=== PATIENT | female | born 1940 | race Caucasian/White ===

== ENCOUNTER 2017-10-02 18:00 | Emergency (ER) | payer OTHER ==
[~2017-10-02] VITALS: Ht 166.4 cm; Wt 98.9 kg
[~2017-10-02 18:00] MED LIST: AMOXICILLIN500 M2 PO; ATORVASTATIN CA40 M1 PO; AUGMENTIN 875875 MG PO; BIOTIN1000 MCG PO; COUMADIN 3 MG TA3 MG PO; COUMADIN2.5 M1 PO; DILTIAZEM ER120 MG PO; DILTIAZEM240 M1 PO; FERROUS SULFAT325 M2 PO; FUROSEMIDE20 M1 PO; HYDROCORTISO28.35 GM TOP; LANOXIN125 MCG PO; LASIX20 MG PO; LASIX40 M1 PO; LASIX40 MG PO; LEVOTHYROXINE0.15 MG PO; LOPRESSOR50 MG PO; LORATADINE10 M1 PO; Lipitor PO; METOPROLOL TART25 M1 PO; METOPROLOL TART50 M1 PO; PERCOCET 325 MG1 TA2 PO; RITE AID BIO2500 MCG PO; SYNTHROID125 MCG PO; TOPROL XL 50MG50 MG PO; TYLENOL #31 TAB PO; XARELTO20 M2 PO
[2017-10-02 18:48] LABS: ABSOLUTE BASOPHIL COUNT 0 /CUMM (0.0-0.2); ABSOLUTE EOSINOPHIL COUNT 0 /CUMM (0.0-0.7); ABSOLUTE GRANULOCYTE CT 8.3 /CUMM (1.4-6.5); ABSOLUTE MONOCYTE COUNT 0.9 /CUMM (0.10-0.60); BASOPHIL % 0.5 % (0.0-2.0); EOSINOPHIL % 0.3 % (0-5); GRANULOCYTE % 80.7 % (42.2-75.2); HEMATOCRIT 45.6 % (37-47); MEAN CORPUSCULAR HGB 29.1 PG (27.0-31.0); MEAN CORPUSCULAR VOLUME 88.1 FL (81.0-99.0); MEAN PLATELET VOLUME 10.8 FL (7.4-10.4); PLATELET COUNT 99 /CUMM (130-400); RBC DISTRIBUTION WIDTH 17.1 % (11.5-14.5); RED BLOOD CELL CT 5.18 /CUMM (4.20-5.40); WHITE BLOOD CELL COUNT 10.3 /CUMM (4.8-10.8)
--- NOTE | 2017-10-02 19:13 | RADIOLOGY REPORT ---
EXAMINATION: XR CHEST CLINICAL INFORMATION: Fever. COMPARISON: Chest x-ray 03/10/2017 TECHNIQUE: 2 views of the chest were obtained. FINDINGS: The heart size is enlarged. There is vascular wall calcifications of aorta. There is no pulmonary vascular congestion. The lungs are clear. There is no pleural effusion. There is multilevel degenerative spondylosis of the dorsal spine. IMPRESSION: There is no acute abnormality of the chest.
--- NOTE | 2017-10-02 22:09 | ED NECK/BACK PAIN COMPLAINT ---
See Addendum History of Present Illness General Chief Complaint: General Adult Stated Complaint: FEVER, RIGHT SIDE OF NECK STIFFNESS/SPASM Source: patient, family, old records Exam Limitations: no limitations Vital Signs & Intake/Output Vital Signs & Intake/Output Vital Signs Date Time Temp Pulse Resp B/P B/P Pulse O2 O2 Flow FiO2 Mean Ox Delivery Rate 10/02 2319 99.0 104 18 124/72 97 Room Air Room Air 10/02 2222 98.4 10/02 2101 98.8 111 18 102/71 95 Room Air 10/02 1826 101.0 10/02 1823 101.0 118 20 159/86 93 Room Air ED Intake and Output 10/03 0000 10/02 1200 Intake Total Output Total Balance Patient 218 lb Weight Weight Reported by Patient Measurement Method Reconcile Medications Atorvastatin Calcium 40 MG TABLET 1 TAB PO DAILY Cholesterol . Biotin ([facility] Biotin) 2,500 MCG CAP 10,000 MCG PO DAILY SUPPLEMENT ( Reported) Cyclobenzaprine HCl 10 MG TABLET 1 TAB PO BID PRN NECK PAIN Ferrous Sulfate 325 MG (65 MG IRON) TABLET.DR 325 MG PO DAILY Iron Deficiency . Furosemide (Lasix) 40 MG TABLET 1 TAB PO DAILY diuresis . Hydrocortisone 0.5 % CREAM..G. 1 [place] TOP DAILY FACE . Levothyroxine Sodium (Synthroid) 125 MCG TABLET 0.125 MG PO DAILY AC thyroid . Metoprolol Tartrate 25 MG TABLET 3 TAB PO BID Heart Rate . Moxifloxacin HCl (Avelox) 400 MG TABLET 1 TAB PO DAILY fever Tylenol With Codeine (Tylenol With Codeine #3 Tablet) 300 MG-30 MG TABLET 1-2 TAB PO Q6 PRN pain Warfarin Sodium (Coumadin) 1 MG TABLET BLOOD THINNER (Reported) Triage Note: PT STATES SHE HAD HAD SHINGLES IN R RIGHT SIDE NECK/HEAD AND SHE WAS TREATED FOR SUCH. PT STATE HER NECK IS SPASAMING ON THAT SIDE. PT STATES TODAY SHE BEGAN TO GET A FEVER 101.2. PT CALLED HER PCP AND HE TOLD HER TO COME TO ED. PT STATES SHE HAD CELLULITIS ON HER LEG AND HER DRRenato WAS CONCERNED THAT MAYBE THE NECK RASH MIGHT BE TURNING INTO CELLULITIS. Triage Nurses Notes Reviewed? yes Onset: Abrupt Duration: day(s): (1), constant Timing: recent history Quality/Severity: moderate Location: paraspinous muscles (neck) Radiation: none Associated Symptoms: fever HPI: 77 Year old female with past medical history significant for lower extremity swelling, hypothyroidism hypertension atrial fibrillation on Coumadin, history of necrotizing fasciitis, septic shock, cellulitis presents the ER stating that since July she has had pain to the right side of her neck of shingles. She describes the pain as a tense spasm-like pain that is constantly there. She states today she developed a fever. She denies any associated cough nausea vomiting diarrhea. No chest breath. No abdominal pain. She denies noting any rashes to her skin or neck. No headache. No urinary urgency frequency dysuria. No sick contacts no recent change her appetite There is no radiation of the pain in her neck no numbness or tingling in her extremities no swelling to her arms. (Alfredo Lopez) Allergies Coded Allergies: Penicillins (RASH 10/02/17) Uncoded Allergies: CONTRAST DYE (UNKNOWN 10/02/17) (Sanya Arevalo DO) Past History Travel History Traveled to [place] past 21 day No Medical History Any Pertinent Medical History? see below for history Neurological: NONE EENT: MACULAR DEGENERATION BLIN LEGALLY BLIND Cardiovascular: AFIB, hypertension Respiratory: N/A Gastrointestinal: N/A Hepatic: N/A Renal: N/A Musculoskeletal: NECROTIZING FASCIITIS left lower ext lymphedema Psychiatric: N/A Endocrine: hypothyroidism, obesity Blood Disorders: N/A Cancer(s): N/A FUR JOINER/Reproductive: N/A History of MRSA: Yes History of VRE: No History of CDIFF: No Surgical History Surgical History: debridement left thigh s/p venous closure LLE Psychosocial History Who do you live with Spouse Services at Home None What is your primary language Yi Tobacco Use: Quit >30 days ago ETOH Use: denies use Illicit Drug Use: denies illicit drug use Family History Hx Contributory? No (Alfredo Lopez) Review of Systems Review of Systems Constitutional: Reports: see HPI. Comments Review of systems: See HPI, All other systems negative. Constitutional, fever HEENT: no sore throat no congestion Cardiovascular: No chest pain , no palpitation Skin: no rashes, no change in skin Respiratory: No dyspnea no cough no sputum GI: No nausea no vomiting, no diarrhea : No dysuria No hematuria, no frequency Muscle skeletal: No joint pain, no back pain, neck pain Neurologic: , no headache Psych: No stress Heme/endocrine: No bruising Immunology: No lymphadenopathy (Alfredo Lopez) Physical Exam Physical Exam General Appearance: well developed/nourished, alert, awake Neck: supple Comments: Well-developed well-nourished person in no acute distress HEENT: Normal EENT exam; PERRL, EOMI, HEAD is atraumatic. moist mucous membranes. Neck: Supple, no lymphadenopathy, normal range of motion without pain or tenderness, negative Brudzinski's Back: Nontender, no CVA tenderness. Full range of motion no rash noted to the skin Cardiovascular: Regular rate and rhythms no murmurs rubs Respiratory: No respiratory distress. Patient speaking in full complete sentences. Breath sounds clear to auscultation bilaterally: NO W/R/R Abdomen: Soft, obese nontender nondistended, no appreciable organomegaly. Normal bowel sounds. No rebound/guarding, Extremity: 3+ b/l edema (pt states at baseline), full range of motion of extremities, normal and equal pulses bilaterally, 5 out of 5 strength noted to bilateral upper and lower extremities Neuro: Alert oriented x3, motor sensory normal, There were no obvious focal neurologic abnormalities. Skin: No appreciable rash on exposed skin, skin is warm and dry. Psych: Mood and affect is normal, memory and judgment is normal. Core Measures CVA/TIA Diagnosis: No (Alfredo Lopez) Progress Differential Diagnosis: pyelo/UTI, PNA, BRONCHITIS, INFLUENZA, UTI PYELO, GASTROENTERITIS, SHINGLES CELLULITIS, NEC FASC Plan of Care: Orders Procedure Date/time Status EKG 10/02 2229 Active RAPID VIRAL INFLUENZA A 10/02 1828 Complete URINALYSIS 10/02 1828 Complete BLOOD CULTURE 10/02 1825 Active TROPONIN LEVEL 10/02 182 Complete LACTIC ACID 10/02 1825 Complete COMPREHENSIVE METABOLIC PANEL 10/02 1825 Complete CBC WITHOUT DIFFERENTIAL 10/02 1825 Complete Laboratory Tests 10/02/172125: Lactic Acid Cancelled, Urinalysis LIGHT H, Urine Color YEL, Urine Clarity HAZY H, Urine pH 6.0, Ur Specific [place] >= 1.030, Urine Protein 100 H, Urine Ketones NEG, Urine Nitrite NEG, Urine Bilirubin NEG@ICTO, Urine Urobilinogen 1.0 , Ur Leukocyte Esterase TRACE H, Ur Microscopic SEDIMENT EXAMINED, Urine RBC 1- 3, Urine WBC 5-10 H, Ur Epithelial Cells MOD H, Urine Bacteria MOD H, Urine Hemoglobin TRACE-INTACT, Urine Glucose NEG 10/02/17 1833: Anion Gap 12, Estimated GFR 44 L, BUN/Creatinine Ratio 15.0, Glucose 139 H, Lactic Acid 1.8, Calcium 9.7, Total Bilirubin 1.9 H, AST 28, ALT 26, Alkaline Phosphatase 83, Troponin I < 0.01, Total Protein 8.3 H, Albumin 3.8, Globulin 4.5 H, Albumin/Globulin Ratio 0.8 L, CBC w Diff NO MAN DIFF REQ, RBC 5.18, MCV 88.1, MCH 29.1, MCHC 33.0, RDW 17.1 H, MPV 10.8 H, Gran % 80.7 H, Lymphocytes % 9.9 L, Monocytes % 8.6, Eosinophils % 0.3, Basophils % 0.5, Absolute Granulocytes 8.3 H, Absolute Lymphocytes 1.0 L, Absolute Monocytes 0.9 H, Absolute Eosinophils 0, Absolute Basophils 0 Microbiology 10/026 NASOPHARYN: Influenza Virus A & B Rapid Smear - COMP 10/02 183 BLOOD: Blood Culture - RECD 10/02 1825 BLOOD: Blood Culture - RECD labs ordered from triage, 2340= [facility] she is afebrile at this time, pt was seen and evaluated by dr arevalo- we will obtain a ct of her neck, her abd exam is benign, nontender, lungs are cta. she has no other complaints, no rash to the skin. dr arevaol will speak with dr vargas for follow up if ct is unremarkable DR AREVALO spoke with dr vargas- agrees with plan for ct, torre culture, close follow up with and send home on avelox pphx. 10/02/2017 11:09:50 PM call back to the patient's room she after speaking with her family does not want the CAT scan performed read discussed with her the risks, she would like to follow up with Dr. Vargas tomorrow, she would not like this CAT scan after discussing it with her she will return our for her fever returns or she has any other concerns return precautions were discussed at length by myself Diagnostic Imaging: Viewed by Me: Radiology Read. Discussed w/RAD: Radiology Read. Radiology Impression: PATIENT: DEBRA DIAZ PRESENT AGE: 77 PATIENT ACCOUNT NO: [id number] : 42 LOCATION: [facility] ORDERING PHYSICIAN: Julio BYERS SERVICE DATE: 10/02/17 EXAM TYPE: RAD - XRY- CHEST XRAY, TWO VIEWS EXAMINATION: XR CHEST CLINICAL INFORMATION: Fever. COMPARISON: Chest x-ray 03/10/2017 TECHNIQUE: 2 views of the chest were obtained. FINDINGS: The heart size is enlarged. There is vascular wall calcifications of aorta. There is no pulmonary vascular congestion. The lungs are clear. There is no pleural effusion. There is multilevel degenerative spondylosis of the dorsal spine. IMPRESSION: There is no acute abnormality of the chest. DICTATED BY: Hugo Paul MD DATE/TIME DICTATED:10/02/171907 THREAD GRINDER TOOL:NUBIA DATE/TIME TRANSCRIBED:10/02/171907 CONFIDENTIAL, DO NOT COPY WITHOUT APPROPRIATE AUTHORIZATION. <Electronically signed in Other Vendor System> SIGNED BY: Hugo Paul MD 10/02/171912 Initial ED EKG: afib at 110, nonspecific st seg changes, normal axis Prior EKG: unchanged (Alfredo Lopez) Departure Departure Disposition: HOME OR SELF CARE Condition: Stable Clinical Impression Primary Impression: Neck muscle spasm Secondary Impressions: Fever Referrals: Eulogio CHAMBERS,Jason Welsh (PCP/Family) Additional Instructions: avelox as directed for prophylaxis. Flexeril as directed-this is a muscle relaxer. Follow-up with Dr. Vargas tomorrow. Check your temperature as discussed at home -return if you redeveloped a fever 100.4 or greater, or you have any other concerns. Departure Forms: Customer Survey General Discharge Information Prescriptions: Current Visit Scripts Cyclobenzaprine HCl 1 TAB PO BID PRN NECK PAIN #15 TAB Moxifloxacin HCl (Avelox) 1 TAB PO DAILY #7 TAB (Alfredo Lopez) PA/COW TESTER Co-Sign Statement Statement: ED Attending supervision documentation- [x] I saw and evaluated the patient. I have also reviewed all the pertinent lab results and diagnostic results. I agree with the findings and the plan of care as documented in the PA's/COW TESTER's documentation. [] I have reviewed the ED Record and agree with the PA's/COW TESTER's documentation. [] Additions or exceptions (if any) to the PAs/COW TESTER's note and plan are summarized below: [] 10/02/17 11 PM I saw and personally examined the patient and I agree with the PAs evaluation. The patient has a one-day history of fever and was concerned because of her prior history of sepsis and necrotizing fasciitis. She has a history of cellulitis. She also has had shingles and has pain in the right side of her neck for several months. On physical exam she did have a fever of 101 earlier. She is in no acute distress. External neck exam is normal. No nuchal rigidity. No rash no adenopathy, she does have some muscular spasm of the neck.. Heart is irregularly irregular. Lungs are clear. Abdomen is soft and nontender. Extremities reveal edema. No increased warmth neurological exam she is awake alert and oriented 3. Chest x-ray was negative. Lactic acid was normal. White blood cell count was normal. She did have mild pyuria. Troponin was negative. She was pancultured. CT scan was requested. The patient refused. The risks were discussed with her and shared decision-making was utilized in her care. She was empirically started on Avelox. I discussed the plan of care with Dr. Vargas and he will follow the patient in the office. The patient agreed to return to the emergency department immediately should her fever return or should she be worse in anyway. (Ata MONROE,Sanya Reilly) PA/COW TESTER Co-Sign Statement Statement: ED Attending supervision documentation- [] I saw and evaluated the patient. I have also reviewed all the pertinent lab results and diagnostic results. I agree with the findings and the plan of care as documented in the PA's/COW TESTER's documentation. x] I have reviewed the ED Record and agree with the PA's/COW TESTER's documentation. [] Additions or exceptions (if any) to the PAs/COW TESTER's note and plan are summarized below: [] (Grace CHAMBERS,Juan Carlos Covarrubias)
[2017-10-02] MEDS ORDERED: CYCLOBENZAPRINE10 M1 PO (22:49)
[2017-10-02] MEDS ORDERED: AVELOX400 M1 PO (22:57)
[2017-10-02 23:19] VITALS: BP 124/72
[2017-10-03] MEDS ORDERED: FERROUS SULFAT325 M3 PO (14:32)
== END 2017-10-02 23:47 ==
LOC: ERH 18:00
PROVIDERS: Physician Assistant Medical
DX: M62.838 Other muscle spasm (principal); R50.9 Fever, unspecified
CPT/HCPCS: 87184; 71046; 81001; 87040; 87147; 87804; 87804-59; 93005; 93010

== ENCOUNTER 2017-10-03 11:15 | Inpatient (IN) | payer OTHER ==
[~2017-10-03] VITALS: Ht 165.1 cm; Wt 114.6 kg
[~2017-10-03 11:15] MED LIST changes: +AVELOX400 M1 PO; +CYCLOBENZAPRINE10 M1 PO
--- NOTE | 2017-10-03 14:21 | ED GENERAL ADULT ---
History of Present Illness General Chief Complaint: General Adult Stated Complaint: POSITIVE BLOOD CULTURES Source: patient, old records Exam Limitations: no limitations Vital Signs & Intake/Output Vital Signs & Intake/Output Vital Signs Date Time Temp Pulse Resp B/P B/P Pulse O2 O2 Flow FiO2 Mean Ox Delivery Rate 10/03 1519 106 17 105/67 97 Room Air 10/03 1430 98.0 100 20 150/60 98 Room Air 10/03 1354 96 Room Air 10/03 1127 98.8 110 20 95/63 97 Room Air Allergies Coded Allergies: Penicillins (RASH 10/02/17) Uncoded Allergies: CONTRAST DYE (UNKNOWN 10/02/17) Reconcile Medications Ferrous Sulfate 325 MG (65 MG IRON) TABLET 1 TAB PO BID IRON, VITAMIN ( Reported) Levothyroxine Sodium (Synthroid) 125 MCG TABLET 0.125 MG PO DAILY AC thyroid . Metoprolol Tartrate 25 MG TABLET 3 TAB PO BID Heart Rate . Warfarin Sodium (Coumadin) 2.5 MG TABLET 1 TAB PO DAILY BLOOD THINNER ( Reported) Triage Note: CALLED IN FOR +BLOOD CULTURES. SEEN HERE LAST NIGHT FOR NECK PAIN. TREATED FOR SHINGLES Jul Triage Nurses Notes Reviewed? yes Onset: Gradual Duration: week(s): Timing: recent history Injury Environment: home Severity: moderate HPI: 77yo female presents with hx of afib on Coumadin presents to ED for positive blood cultures. Patient with hx of recent shingles diagnosis treated with valtrex. Reports neck stiffness x 2 months and spasming pain of right neck, . Patient states neck pain began on 07/31 a few days prior to onset of shingles which was located to right neck. Patient reports onset of fever last night, as high as 101.2F. Patient was seen last night for the same and called today to report +blood cultures. PAtient also reports baseline dyspnea on exertion. No photophobia, headache, nausea, vomiting, fatigue. (Darleen BYERS,Geeta Winston) Past History Travel History Traveled to [place] past 21 day No Medical History Any Pertinent Medical History? see below for history Neurological: NONE EENT: MACULAR DEGENERATION BLIN LEGALLY BLIND Cardiovascular: AFIB, hypertension Respiratory: N/A Gastrointestinal: N/A Hepatic: N/A Renal: N/A Musculoskeletal: NECROTIZING FASCIITIS left lower ext lymphedema Psychiatric: N/A Endocrine: hypothyroidism, obesity Blood Disorders: N/A Cancer(s): N/A GIS GEOGRAPHER/Reproductive: N/A History of MRSA: Yes History of VRE: No History of CDIFF: No Surgical History Surgical History: debridement left thigh s/p venous closure LLE Psychosocial History Who do you live with Spouse Services at Home None What is your primary language Kyrgyz Tobacco Use: Quit >30 days ago ETOH Use: denies use Illicit Drug Use: denies illicit drug use Family History Hx Contributory? No (Geeta Ramon) Review of Systems Review of Systems Constitutional: Reports: see HPI. EENTM: Reports: no symptoms. Respiratory: Reports: see HPI. Cardiovascular: Reports: no symptoms. GI: Reports: no symptoms. Genitourinary: Reports: no symptoms. Musculoskeletal: Reports: see HPI. Skin: Reports: see HPI. Neurological/Psychological: Reports: no symptoms. Hematologic/Endocrine: Reports: no symptoms. Immunologic/Allergic: Reports: no symptoms. All Other Systems: Reviewed and Negative (Geeta Ramon) Physical Exam Physical Exam General Appearance: well developed/nourished, no apparent distress, alert, awake , obese Head: atraumatic, normal appearance Eyes: Bilateral: normal appearance, PERRL, EOMI. Ears, Nose, Throat: normal pharynx, normal ENT inspection, hearing grossly normal Neck: normal inspection, supple, full range of motion, right sided neck tenderness without swelling or LAD, ROM intact without meningismus Respiratory: no respiratory distress, bilateral expiratory wheezing Cardiovascular: tachycardia Peripheral Pulses: 2+ radial (R), 2+ radial (L) Gastrointestinal: normal bowel sounds, soft, non-tender, no organomegaly Back: normal inspection, normal range of motion Extremities: bilateral lower extremity edema, shiny appearance of skin to RLE without significant erythema Neurologic/Psych: awake, alert, oriented x 3 Skin: intact, warm/dry Core Measures ACS in differential dx? Yes CVA/TIA Diagnosis: No Sepsis Present: Yes Sepsis Focused Exam Completed? Yes (Geeta Ramon) ED Sepsis Exam Date of Focused Sepsis Exam: 10/03/17 Time of Focused Sepsis Exam: 1509 Sepsis Cardiac Exam: Tachycardia Sepsis Resp Exam: mild wheezing Sepsis Cap Refill Exam: <2 Sec Sepsis Peripheral Pulse Exam: Normal Sepsis Peripheral Pulse Location: Radial Sepsis Skin Color Exam: Normal for Ethnicity Skin Temp/Moisture Exam: Warm/Dry (Darlene BYERS,Geeta Winston) Progress Differential Diagnoses I considered the following diagnoses in my evaluation of the patient: [Sepsis, cellulitis, meningitis, shingles, abscess, acute coronary syndrome] Plan of Care: Orders Procedure Date/time Status Heart Healthy Diet 10/03 D Active TROPONIN LEVEL 10/04 1999 Active Admit to inpatient 10/03 1850 Active Pathway - chart 10/03 180 Active House Staff 10/03 180 Active Patient Data 10/03 180 Active Code Status 10/03 180 Active Patient Data 10/03 1738 Active LACTIC ACID 10/03 1704 Complete BLOOD CULTURE 10/03 1650 Active EKG 10/03 1516 Active CULTURE,URINE 10/03 1513 Active URINALYSIS 10/03 1513 Active Intake & Output 10/03 1434 Active PARTIAL THROMBOPLASTIN TIME 10/03 1411 Complete PROTHROMBIN TIME 10/03 1411 Complete TROPONIN LEVEL 10/03 1404 Complete LACTIC ACID 10/03 1404 Complete COMPREHENSIVE METABOLIC PANEL 10/03 1404 Complete CBC WITHOUT DIFFERENTIAL 10/03 1404 Complete VTE Mechanical Prophylaxis 10/03 UNK Active Telemetry/Institutional Nutrition Consultant 10/03 UNK Active Laboratory Tests 10/03/172021: Urine Color Pending, Urine Clarity Pending, Urine pH Pending, Ur Specific [place] Pending, Urine Protein Pending, Urine Ketones Pending, Urine Nitrite Pending, Urine Bilirubin Pending, Urine Urobilinogen Pending, Ur Leukocyte Esterase Pending, Ur Microscopic Pending, Urine Hemoglobin Pending, Urine Glucose Pending 10/03/17 1955: Troponin I Pending 10/03/17 1744: Lactic Acid 2.7 H 10/03/17 1420: Anion Gap 13, Estimated GFR 34 L, BUN/Creatinine Ratio 16.7, Glucose 138 H, Lactic Acid 2.8 H, Calcium 9.5, Total Bilirubin 2.7 H, AST 36, ALT 19, Alkaline Phosphatase 73, Troponin I 0.46 *H, Total Protein 7.7, Albumin 3.5, Globulin 4.2, Albumin/Globulin Ratio 0.8 L, PT 24.1 H, INR 2.19 H, APTT 35, CBC w Diff MAN DIFF ORDERED, RBC 4.80, MCV 88.0, MCH 28.8, MCHC 32.8 L, RDW 17.0 H, MPV 10.9 H, Gran % 90.0 H, Lymphocytes % 4.2 L, Monocytes % 5.7, Eosinophils % 0, Basophils % 0.1, Absolute Granulocytes 16.8 H, Segmented Neutrophils 83 H, Band Neutrophils 5, Absolute Lymphocytes 0.8 L, Lymphocytes 3 L, Monocytes 9, Absolute Monocytes 1.1 H, Absolute Eosinophils 0, Absolute Basophils 0, Platelet Estimate DECREASED, Polychromasia 1+, Anisocytosis 1+ Microbiology 10/03 2021 URINE ROUT: Urine Culture - RECD 10/03 1809 BLOOD: Blood Culture - RECD 10/04 1743 BLOOD: Blood Culture - RECD HAD CXR yesterday which was WNL. IV antibiotics were initiated upfront given the patient's positive blood cultures. Also given an IV fluids based on her body weight. Patient has elevated troponin enzyme. Her EKG is stable, sinus rhythm. Spoke with Dr. Benitez regarding this patient's elevated troponin level. He reports it's likely related to patient's current sepsis. Cardiology will consult the patient. Dr. Berumen spoke with Dr. Krishnan and Dr. Benitez regarding this patient. She is stable to telemetry admission. Dr. Berumen spoke with Brady Angeles MD who recommends IV Vanco as mono antibiotic therapy and CT scan neck for further evaluation. Initial ED EKG: atrial fibrillation @114bpm, nonspecific ST changes Prior EKG: unchanged (10/02/17) (Darleen BYERS,Geeta Winston) Differential Diagnoses I considered the following diagnoses in my evaluation of the patient: (Ata MONROE,Sanya Reilly) Departure Departure Disposition: STILL A PATIENT Condition: Stable Clinical Impression Primary Impression: Sepsis Qualifiers: Sepsis type: sepsis due to unspecified organism Qualified Code: A41.9 - Sepsis, unspecified organism Secondary Impressions: Elevated troponin Referrals: Jason Krishnan MD (PCP/Family) Departure Forms: Customer Survey General Discharge Information Admission Note Spoke With: Jason Krishnan MD Documentation of Exam: Documentation of any treatments & extenuating circumstances including Concerns Regarding Discharge (functional status, medication knowledge or non-compliance, living conditions, etc.) that warrant an admission rather than observation: [ Sepsis requiring IV antibiotics, IV fluids, infectious disease consult, repeat labs elevated troponin requiring cardiology consult, telemetry monitoring, repeat EKGs, premature discharge medically unsafe.] (Geeta Ramon) PA/SENIOR ANALYST PROGRAMMER Co-Sign Statement Statement: ED Attending supervision documentation- [X] I saw and evaluated the patient. I have also reviewed all the pertinent lab results and diagnostic results. I agree with the findings and the plan of care as documented in the PA's/SENIOR ANALYST PROGRAMMER's documentation. [] I have reviewed the ED Record and agree with the PA's/SENIOR ANALYST PROGRAMMER's documentation. [] Additions or exceptions (if any) to the PAs/SENIOR ANALYST PROGRAMMER's note and plan are summarized below: [] I have seen and personally examined the patient and I agree with the PAs evaluation. We called for positive blood cultures. Now has leukocytosis. Positive troponin. Unchanged EKG. No definite focus. Only complaint is ongoing right-sided neck pain for months. ID consultation was requested. Discussed with Dr. Angeles -IV vancomycin, panculture, he will follow. (Sanya Berumen DO) Critical Care Note Critical Care Note Critical Care Time: 30-74 min (Darleen BYERS,Geeta Winston)
[2017-10-03 14:32] LABS: ABSOLUTE BASOPHIL COUNT 0 /CUMM (0.0-0.2); ABSOLUTE EOSINOPHIL COUNT 0 /CUMM (0.0-0.7); ABSOLUTE GRANULOCYTE CT 16.8 /CUMM (1.4-6.5); ABSOLUTE LYMPH COUNT 0.8 /CUMM (1.2-3.4); ABSOLUTE MONOCYTE COUNT 1.1 /CUMM (0.10-0.60); BASOPHIL % 0.1 % (0.0-2.0); EOSINOPHIL % 0 % (0-5); HEMATOCRIT 42.2 % (37-47); MEAN CORPUSCULAR HGB 28.8 PG (27.0-31.0); MEAN CORPUSCULAR HGB CONC 32.8 G/DL (33.0-37.0); MEAN PLATELET VOLUME 10.9 FL (7.4-10.4)
[2017-10-03] MEDS ORDERED: FERROUS SULFAT325 M3 PO (14:32)
[2017-10-03 14:40] LABS: PT 24.1 SEC (9.4-12.5); PTT 35 SEC (25-37)
[2017-10-03 14:50] LABS: WHITE BLOOD CELL COUNT 18.7 /CUMM (4.8-10.8)
[2017-10-03 15:01] LABS: PLATELET COUNT 88 /CUMM (130-400)
--- NOTE | 2017-10-03 17:45 | CT SCAN REPORT ---
EXAMINATION: CT NECK WITHOUT CONTRAST CLINICAL INFORMATION: Neck mass. Sepsis. Concern for abscess. COMPARISON: None TECHNIQUE: Axial images obtained through the face through the superior mediastinum. Coronal and sagittal reformatted images are performed at the CT scanner. No intravenous contrast given. DLP: 521.82 mGy-cm FINDINGS: There is no abscess. There is no inflammation. The fat planes throughout the neck are normal. The patient is a edentulous. There is no bone destruction or erosion of the mandible or the maxilla. There is no significant lymphadenopathy. The nasopharynx, oropharynx and hypopharynx are unremarkable. There is no prevertebral soft tissue swelling. The parotid glands are symmetric bilateral without mass or inflammation. The submandibular glands are normal. The paranasal sinuses are normally aerated. The orbits are unremarkable. Superior mediastinum unremarkable. There are vascular wall calcifications of the origin of the great vessels and the arch of the aorta. No superior mediastinal mass or lymphadenopathy. The lungs are clear. The partially visualized intracranial structures are unremarkable. The partially visualized paranasal sinuses are normally aerated. There is degenerative spondylosis of the spine with multilevel disc height narrowing, endplate spurring and facet joint arthrosis. IMPRESSION: No acute change. No neck mass or abscess. No inflammation.
--- NOTE | 2017-10-03 17:58 | History & Physical ---
JovannyHunt 10/03/17 1756: General Information and HPI MD Statement: I have seen and personally examined DEBRA DIAZ and documented this H&P. The patient is a 77 year old F who presented with a patient stated chief complaint of right-sided face, neck pain and fever for last couple of days []. Source of Information: patient, family, old records Exam Limitations: no limitations History of Present Illness: 77 YO obeses F with PMH of A.fib on coumadin, HTN, HLD, hypothyroidism, chronic lymphadema of legs, CKD stage 2, recent history of shingles, necrotizing fasciitis, pulmonary hypertension, chronic diastolic CHF and macular degeneration came to ED with chief complaint of right-sided face, neck pain and fever for last couple of days. Patient reported that she was in her usual state of health 3 months back when she developed shingles on the right side of the face and the neck. She took her medication but she still has lesions on the right side of the neck and face. Patient reported having tingling sensation and shocking-like sensation on touching the lesions. Patient reported pain on right side of the face and the neck 4/10, aching, continuous and radiating to the neck. Patient came to ED yesterday with these complaints and she had fever for last couple of days. In ED patient was given pain medication and antipyretics. Blood cultures were obtained yesterday that came back positive and patient was called to come to ED for evaluation. Patient denied any chest pain, palpitation, lightheadedness, headache, blurry vision, cough, sputum, sick contact, diarrhea, constipation, trauma, rash, abdominal pain and dysuria. Last echocardiogram was done in February 2017 that showed ejection fraction 50% . Patient was admitted in February 2017 due to septic shock secondary to cellulitis and type II RI. ED course: Vitals: Temperature 98.8, pulse 110, respiratory rate 20, blood pressure 95/63, oxygen saturation 97% on room air Labs: WBC count 18.7, hemoglobin 13.8, hematocrit 42.2, platelet count 88, sodium 138, potassium 4.6, BUN 25, creatinine 1.5, lactic acid 2.8, anion gap 13 , BUNs/creatinine ratio 16.7, glucose 138, calcium 9.5, total bilirubin 2.7, AST 36, ALT 19, troponin 0.46, INR 2.19 Blood cultures and urine culture were obtained in ED Allergies/Medications Allergies: Coded Allergies: Penicillins (RASH 10/02/17) Uncoded Allergies: CONTRAST DYE (UNKNOWN 10/02/17) Home Med list Ferrous Sulfate 325 MG (65 MG IRON) TABLET 1 TAB PO BID IRON, VITAMIN ( Reported) Levothyroxine Sodium (Synthroid) 125 MCG TABLET 0.125 MG PO DAILY AC thyroid . Metoprolol Tartrate 25 MG TABLET 3 TAB PO BID Heart Rate . Warfarin Sodium (Coumadin) 2.5 MG TABLET 1 TAB PO DAILY BLOOD THINNER ( Reported) Past History Travel History Traveled to [place] past 21 day No Medical History Neurological: NONE EENT: MACULAR DEGENERATION BLIN LEGALLY BLIND Cardiovascular: AFIB, hypertension Respiratory: N/A Gastrointestinal: N/A Hepatic: N/A Renal: N/A Musculoskeletal: NECROTIZING FASCIITIS left lower ext lymphedema Psychiatric: N/A Endocrine: hypothyroidism, obesity Blood Disorders: N/A Cancer(s): N/A COWLMAN/Reproductive: N/A History of MRSA: Yes History of VRE: No History of CDIFF: No Isolation History: Contact Surgical History Surgical History: debridement left thigh s/p venous closure LLE Past Family/Social History Psychosocial History Services at Home: None ETOH Use: denies use Illicit Drug Use: denies illicit drug use Review of Systems Review of Systems Constitutional: Reports: fever. Denies: chills, weakness. EENTM: Reports: see HPI. Cardiovascular: Denies: chest pain, palpitations, syncope. Respiratory: Denies: cough, short of breath, sputum production. GI: Denies: abdominal pain, bloating, constipation, diarrhea, nausea. Genitourinary: Reports: no symptoms. Musculoskeletal: Reports: neck pain. Skin: Reports: see HPI. Neurological/Psychological: Reports: no symptoms. Exam & Diagnostic Data Last 24 Hrs of Vital Signs/I&O Vital Signs Date Time Temp Pulse Resp B/P B/P Pulse O2 O2 Flow FiO2 Mean Ox Delivery Rate 10/03 1519 106 17 105/67 97 Room Air 10/03 1430 98.0 100 20 150/60 98 Room Air 10/03 1354 96 Room Air 10/03 1127 98.8 110 20 95/63 97 Room Air Intake & Output 10/03 1600 10/03 0800 10/03 0000 Intake Total 4350 Output Total Balance 4350 Intake, IV 4350 Patient 282 lb Weight Weight Reported by Patient Measurement Method Physical Exam General Appearance Alert, Oriented X3, Cooperative Skin No Rashes Skin Temp/Moisture Exam: Warm/Dry Sepsis Skin Exam (color): Normal for Ethnicity HEENT Atraumatic, PERRLA, EOMI Neck Supple Cardiovascular Normal S1, Normal S2 Lungs Clear to Auscultation Abdomen Soft, No Tenderness Neurological Normal Speech, Strength at 5/5 X4 Ext, Normal Tone Extremities B/L pedal edema Last 24 Hrs of Labs/Sorin: Laboratory Tests 10/03/17 1744: Lactic Acid 2.7 H 10/03/17 1420: Anion Gap 13, Estimated GFR 34 L, BUN/Creatinine Ratio 16.7, Glucose 138 H, Lactic Acid 2.8 H, Calcium 9.5, Total Bilirubin 2.7 H, AST 36, ALT 19, Alkaline Phosphatase 73, Troponin I 0.46 *H, Total Protein 7.7, Albumin 3.5, Globulin 4.2, Albumin/Globulin Ratio 0.8 L, PT 24.1 H, INR 2.19 H, APTT 35, CBC w Diff MAN DIFF ORDERED, RBC 4.80, MCV 88.0, MCH 28.8, MCHC 32.8 L, RDW 17.0 H, MPV 10.9 H, Gran % 90.0 H, Lymphocytes % 4.2 L, Monocytes % 5.7, Eosinophils % 0, Basophils % 0.1, Absolute Granulocytes 16.8 H, Segmented Neutrophils 83 H, Band Neutrophils 5, Absolute Lymphocytes 0.8 L, Lymphocytes 3 L, Monocytes 9, Absolute Monocytes 1.1 H, Absolute Eosinophils 0, Absolute Basophils 0, Platelet Estimate DECREASED, Polychromasia 1+, Anisocytosis 1+ Microbiology 10/03 1809 BLOOD: Blood Culture - RECD 10/04 1743 BLOOD: Blood Culture - RECD 10/03 1513 URINE ROUT: Urine Culture - ORD Assessment/Plan Assessment: 77 YO obeses F with PMH of A.fib on coumadin, HTN, HLD, hypothyroidism, thrombocytopenia, chronic lymphadema of legs, CKD stage 2, recent history of shingles, necrotizing fasciitis, pulmonary hypertension, chronic diastolic CHF and macular degeneration came to ED with chief complaint of right-sided face, neck pain and fever for last couple of days. We will admit the patient on telemetry floor to treat for following problems: Bacteremia with sepsis: -Patient is meeting 2 out of 4 criteria of SIRS. pulse 110, wbc 18.7. lactic acid 2.8 and deranged LFTs and elevated creatinine. -Probably due to soft tissue infection, protitis of right side or due to left foot infection. -Follow blood and urine cultures. -IV fluids -Trend lactic acid -USG abdomen to rule out biliary obstruction -Continue vancomycin iv -ID consult in am Type 2 RI: -Probably due to sepsis -Trend trops and do EKGs -Cardio consult -Echo in am. H/O A.fib: -Hold warfarin and transition to heparin H/O CAD: -Continue metoprolol H/O hypothyroidism: -Continue levothyroxin -TSH H/O thrombocytopenia: -Avoid meds that decrease the number or function of platelets. DVT prophylaxis: Mechanical and heparin Code status: Full code As Ranked By This Provider Problem List: 1. Sepsis Qualifiers Sepsis type: sepsis due to unspecified organism Qualified Code: A41.9 - Sepsis, unspecified organism 2. Elevated troponin 3. Thrombocytopenia Core Measures/Misc (03/11) Acute Coronary Syndrome ACS Diagnosis: No Congestive Heart Failure Congestive Heart Failure Diagnosis No Cerebrovascular Accident CVA/TIA Diagnosis: No VTE (View Protocol) VTE Risk Factors Age>40 No Mechanical VTE Prophylaxis d/t N/A MechProphylax Ordered No VTE Pharm Prophylaxis d/t Platelets below ref range Sepsis (View protocol) Sepsis Present: Yes Giorgio Severino MD 10/03/17 1801: Resident Review Statement Resident Statement: examined this patient, discussed with development intern Other Findings: Ms Diaz is a 77 year old female with PMH of hypothyroidism, hypertension, atrial fibrillation on Coumadin, history of necrotizing fasciitis site is status posterior left thigh debridement in 2013 presented to the ED complaining of neck pain, neck discomfort and having positive blood cultures which were drawn on 03/2018. Patient reports that in July of this year she began to have some pustules and vesicles appear on the right side of her neck. She visited her primary care physician Jason Krishnan MD was started on Valtrex. She reports moderate relief although states that she never really recovered from this bout of presumed shingles. She reports good medication compliance. Over the last few days she has had weakness and developed an acute fever 101.2 deg, prompting her to come to the ED. After an initial work up in the ED, where she was given moxifloxacin and clindamycin she was sent home. At the time of out clinical interaction the patient denied any nausea or vomiting but she did endorse occasional fever and chills. She also endorsed some minor pain in her left foot. Denied any chest or chest discomfort. Denied any abdominal distention or abdominal pain. Denied any dysuria, hematuria, frequency. She did endorse some left-sided foot discomfort. ROS As above. E Temperature at the time of admission 98.8. Pulse 110. Respirations 20. Blood pressure 95/62. Saturation 97% on room air. and son present in room. General Appearance: well developed/nourished, no apparent distress, alert, awake, obese Head: atraumatic, normal appearance Eyes:Bilateral: normal appearance, PERRL, EOMI. Ears, Nose, Throat: normal pharynx, normal ENT inspection, hearing grossly normal Neck: normal inspection, supple, full range of motion, right sided neck tenderness without swelling or LAD, ROM intact without meningismus Respiratory: no respiratory distress, no crackles wheezing or rhonchi. Cardiovascular: tachycardic Peripheral Pulses: 2+ radial (R), 2+ radial (L) Gastrointestinal: normal bowel sounds, soft, non-tender, no organomegaly Back: normal inspection, normal range of motion Extremities: bilateral lower extremity edema, shiny appearance of skin to RLE, multiple excoriated beatty. L>R edema. Left foot callus, minor erythma noted, streaks of shaheen blood. Neurologic/Psych: awake, alert, oriented x 3 Skin: intact, warm/dry. LABS As Above Imagins As Above A Ms Diaz is a 77 year old female with PMH of hypothyroidism, hypertension, atrial fibrillation on Coumadin, history of necrotizing fasciitis site is status posterior left thigh debridement in 2013 presented to the ED complaining of neck pain and neck discomfort and having positive blood cultures which were drawn on 10/02/2017. She was positive for Sepsis critera (WBC, HR). Source of her sepsis is currently unclear, however we suspect cellulitis. Currently pending an additional work up and awating additional results of blood tests. #Sepsis and bacteremia with most likely source cellulitis. #History of atrial fibrillation on Coumadin. #History of hypertension. #History of hypothyroidism. #Hyperbilirubinemia. #Thrombocytopenia likely related to sepsis. #Postherpetic neuralgia. #Chronic venous insufficiency attributed to lymphedema. Admit the patient on telemetry. Low threshold to ICU. Rule out ACS with serial troponins and EKG. Obtain formal cardiology consultation in a.m. Trend lactic acid. Gentle fluid hydration, (patient received 2-1/2 L of fluids in the ED). Monitor urine output. Continue IV vancomycin. Doppler to rule out DVT. Obtain ID consultation in a.m. for antibiotic recommendations. Transition to IV heparin in am in case patient may need to go for surgery. INR at the time of admission was therapeutic. Abdominal ultrasound in a.m. to rule out any acute pathology/cholecystitis. Continue home medications of metoprolol and levothyroxine. CBC, BEP, bilirubin in a.m. Patient is a full code. DVT prophylaxis patient will be maintained on heparin. Eulogio CHAMBERS,[facility] 10/03/176: Attending MD Review Statement Attending Statement Attending MD Statement: examined this patient, discuss w/resident/PA/SIGNALING DESIGN ENGINEER, agreed w/resident/PA/SIGNALING DESIGN ENGINEER, discussed with family, reviewed EMR data (avail), discussed with nursing, discussed with case mgmt, reviewed images, amended to note Attending Assessment/Plan: Seen and examined independently in the emergency room Agree with above history and exam Discussed with the family This is a 77-year-old lady with history of morbid obesity, chronic lymphedema of the legs and abd wall, hypothyroidism, atrial fibrillation on anticoagulation with warfarin, chronic venous insufficiency, previous history of vein closure, previous history of significant necrotizing fasciitis with sepsis septic shock in 2013, left-sided soft tissue infection of the thigh leading to necrotizing fasciitis with a wound VAC with subsequent healing, morbid obesity, secondary pulmonary hypertension, previous postoperative respiratory failure, hyperlipidemia, previous clinical diabetes, chronic kidney disease stage II with previous acute renal insufficiency, recent admission to [facility] with sepsis with septic shock and toxic shock due to cellulitis and lymphedema, chronic diastolic chf, now comes with * Fever with gram positive bacteremia with sepsis due to prob soft tissue infection of the neck vs parotitis of the right side vs foot infection of the left side. Pt did have sig shingles of the rt side of the neck with post herpetic neuralgia with prob impetigo of the rt neck * Foot ulcer on the sole of the rt foot with mild tenderness * Atrial fibrillation chronic on anticoag on warfarin * Chronic kidney disease stage II * Hyperbilirubinemia related to sepsis, unlikely Biliary sepsis - however, pt did have biliary sludge before will need ultrasound * Hypothyroidism on appropriate supplementation * Mild chronic thrombocytopenia * Chronic anemia probably multifactorial * Chronicdiastolic heart disease * Morbid obesity, with sig lymphedema and recurrent cellulitis * Remote RI now with type II NSTEMI now with mildly elevated trop REC Admit IVF Hold warfarin and transition to heparin IV vanco ID to see Await cultures Ultrasound of Abd and lower ext Watch blood work Low threshold to transfer to ICU Rule out RI and follow troponin Cont levoxyl, check tsh, HgBA1c Cont low dose metoprolol Will follow
--- NOTE | 2017-10-03 19:26 | Admission Certification ---
Admission Certification Certification Statement - As attending physician, I certify that at the time of - admission, based on clinical presentation, severity of - symptoms, need for further diagnostic testing and - therapeutic interventions, and risk of adverse outcomes - without in-hospital treatment, in my clinical assessment, - this patient requires an acute hospital stay for a minimum - of two nights or longer. I have also considered psychsocial - factors such as support system, advanced age, financial - issues, cognitive issues, and failed out-patient treatments, - past re-admission history, safety of patient, and lack of - compliance as applicable. Specific rationale supporting this admission is: Gram-positive sepsis gram-positive sepsis Multiple organ dysfunction
[2017-10-04 05:46] LABS: ABSOLUTE BASOPHIL COUNT 0 /CUMM (0.0-0.2); ABSOLUTE EOSINOPHIL COUNT 0 /CUMM (0.0-0.7); ABSOLUTE GRANULOCYTE CT 11.2 /CUMM (1.4-6.5); ABSOLUTE MONOCYTE COUNT 1.2 /CUMM (0.10-0.60); BASOPHIL % 0.2 % (0.0-2.0); EOSINOPHIL % 0.1 % (0-5); GRANULOCYTE % 82.9 % (42.2-75.2); HEMATOCRIT 40.9 % (37-47); MEAN CORPUSCULAR HGB 28.4 PG (27.0-31.0); MEAN CORPUSCULAR HGB CONC 31.8 G/DL (33.0-37.0); MEAN CORPUSCULAR VOLUME 89.3 FL (81.0-99.0); MEAN PLATELET VOLUME 10.9 FL (7.4-10.4); PLATELET COUNT 86 /CUMM (130-400); RBC DISTRIBUTION WIDTH 17.2 % (11.5-14.5); RED BLOOD CELL CT 4.58 /CUMM (4.20-5.40); WHITE BLOOD CELL COUNT 13.5 /CUMM (4.8-10.8)
[2017-10-04 06:01] LABS: PTT 53 SEC (25-37)
--- NOTE | 2017-10-04 07:49 | Cons- Cardiology ---
General Information and HPI Consulting Request Date of Consult: 10/04/17 Requested By: Eulogio CHAMBERS,Jason Welsh Reason for Consult: Elevated troponin, atrial fibrillation Source of Information: patient, old records History of Present Illness: This is a 77-year-old female with a past medical history of atrial fibrillation on Coumadin, remote myocardial infarction, obesity, chronic venous insufficiency , prior septic shock due to cellulitis, diastolic CHF, hypothyroidism, renal insufficiency, hypertension, shingles, and thrombocytopenia who had initially presented to the emergency room with fever along with pain on the right side of her neck felt due to post herpetic neuralgia; she was discharged but then was found to have positive blood cultures and told to return to the emergency room. Overall she says she feels well and denies any worsening dyspnea, palpitations, chest pain, or orthopnea. Denies slurring of speech or focal weakness. Denies syncope. Allergies/Medications Allergies: Coded Allergies: Penicillins (RASH 10/02/17) Uncoded Allergies: CONTRAST DYE (UNKNOWN 10/02/17) Home Med List: Ferrous Sulfate 325 MG (65 MG IRON) TABLET 1 TAB PO BID IRON, VITAMIN ( Reported) Levothyroxine Sodium (Synthroid) 125 MCG TABLET 0.125 MG PO DAILY AC thyroid . Metoprolol Tartrate 25 MG TABLET 3 TAB PO BID Heart Rate . Warfarin Sodium (Coumadin) 2.5 MG TABLET 1 TAB PO DAILY BLOOD THINNER ( Reported) Current Medications: Current Medications Sig/Aldo Start time Last Medication Dose Route Stop Time Status Admin Ceftazidime 0 .STK-MED ONE 10/03 1431 DC .ROUTE Ceftazidime 1,000 MG ONCE ONE 10/03 1415 DC 10/03 IV 10/03 1416 1430 Heparin Sodium 0 .STK-MED ONE 10/04 0649 DC (Porcine) .ROUTE Heparin Sodium 25,000 UNIT Q24H 10/04 0600 AC 10/04 (Porcine) IV 0653 Sodium Chloride 500 ML Heparin Sodium 25,000 UNIT Q24H 10/03 2215 DC 10/03 (Porcine) IV 10/04 0559 2235 Sodium Chloride 500 ML Levothyroxine Sodium 0.125 MG DAILY AC 10/04 0700 AC PO Metoprolol Tartrate 75 MG BID 10/03 2230 AC 10/03 PO 2240 Metoprolol Tartrate 0 .STK-MED ONE 10/03 2229 DC PO Sodium Chloride 1,000 ML Q13H 10/03 2200 AC 10/04 IV 10/04 2359 0152 Sodium Chloride 1,000 ML BOLUS ONE 10/03 1415 DC / IV 10/03 1514 1430 Sodium Chloride 1,000 ML BOLUS ONE 10/03 1415 DC / IV 10/03 1514 1730 Sodium Chloride 1,000 ML BOLUS ONE 10/03 1415 DC 10/03 IV 10/03 1514 2033 Sodium Chloride 500 ML BOLUS ONE 10/03 1415 DC IV 10/03 1514 Vancomycin HCl 1,000 MG Q12 10/03 2300 AC 10/03 Dextrose/Water 250 ML IV 2300 Vancomycin HCl 0 .STK-MED ONE 10/03 1431 DC .ROUTE Vancomycin HCl 1,000 MG ONCE ONE 10/03 1415 DC 10/03 Dextrose/Water 250 ML IV 10/03 1514 1435 Review of Systems Review of Systems: Review of systems as per HPI. The remainder of a 10 point review of systems was reviewed and was otherwise negative. 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/Reproductive: N/A Surgical History Surgical History: debridement left thigh s/p venous closure LLE Psychosocial History Services at Home: None ETOH Use: denies use Illicit Drug Use: denies illicit drug use Exam & Diagnostic Data Vital Signs and I&O Vital Signs Date Time Temp Pulse Resp B/P B/P Pulse O2 O2 Flow FiO2 Mean Ox Delivery Rate 10/04 621 98.3 103 20 126/65 91 Room Air 10/03 2228 99.2 113 17 129/75 96 Room Air 10/03 1940 99.0 110 19 119/74 97 Room Air 10/03 1519 106 17 105/67 97 Room Air 10/03 1430 98.0 100 20 150/60 98 Room Air 10/03 1354 96 Room Air 10/03 1127 98.8 110 20 95/63 97 Room Air Intake & Output 10/04 0800 10/04 0000 10/03 1600 04/11 0800 10/03 0000 10/02 1600 Intake Total 4350 Output Total 200 Balance -200 4350 Intake, IV 4350 Output, Urine 200 Patient 282 lb Weight Weight Reported by Patient Measurement Method Physical Exam: General: no apparent distress. Alert. Obese. Eyes: No obvious scleral icterus. HEENT: No jugular venous distention or abnormal jugular venous pulsations. Cardiovascular: Normal intensity S1/S2. Irregular tachycardia Respiratory: No rales or rhonchi Abdomen: no guarding or rebound tenderness. Musculoskeletal: No clubbing or cyanosis noted; 1-2+ bilateral lower extremity edema Skin: Lower extremity erythema/stasis changes noted Neurologic: No gross focal deficits noted. Labs/Sorin Results: Laboratory Tests 10/04 10/04 10/04 10/03 0530 0204 0204 2200 Chemistry Sodium (137 - 145 mmol/L) 136 L Potassium (3.5 - 5.1 mmol/L) 4.2 Chloride (98 - 107 mmol/L) 105 Carbon Dioxide (22 - 30 mmol/L) 21 L Anion Gap (5 - 16) 10 BUN (7 - 17 mg/dL) 27 H Creatinine (0.5 - 1.0 mg/dL) 1.4 H Estimated GFR (>60 ml/min) 37 L BUN/Creatinine Ratio (7 - 25 %) 19.3 Lactic Acid (0.7 - 2.1 mmol/L) 1.8 1.9 Total Bilirubin (0.2 - 1.3 mg/dL) 2.3 H Troponin I (< 0.11 ng/ml) 0.42 *H Coagulation APTT (25 - 37 SEC) 53 H Hematology CBC w Diff NO MAN DIFF REQ WBC (4.8 - 10.8 /CUMM) 13.5 H RBC (4.20 - 5.40 /CUMM) 4.58 Hgb (12.0 - 16.0 G/DL) 13.0 Hct (37 - 47 %) 40.9 MCV (81.0 - 99.0 FL) 89.3 MCH (27.0 - 31.0 PG) 28.4 MCHC (33.0 - 37.0 G/DL) 31.8 L RDW (11.5 - 14.5 %) 17.2 H Plt Count (130 - 400 /CUMM) 86 L MPV (7.4 - 10.4 FL) 10.9 H Gran % (42.2 - 75.2 %) 82.9 H Lymphocytes % (20.5 - 51.1 %) 7.7 L Monocytes % (1.7 - 9.3 %) 9.1 Eosinophils % (0 - 5 %) 0.1 Basophils % (0.0 - 2.0 %) 0.2 Absolute Granulocytes (1.4 - 6.5 /CUMM) 11.2 H Absolute Lymphocytes (1.2 - 3.4 /CUMM) 1.0 L Absolute Monocytes (0.10 - 0.60 /CUMM) 1.2 H Absolute Eosinophils (0.0 - 0.7 /CUMM) 0 Absolute Basophils (0.0 - 0.2 /CUMM) 0 10/03 174 Chemistry Lactic Acid (0.7 - 2.1 mmol/L) 2.7 H Troponin I (< 0.11 ng/ml) 0.54 *H Urines Urine Color (YEL,AMB,STR) YEL Urine Clarity (CLEAR) CLEAR Urine pH (5.0 - 8.0) 5.5 Ur Specific [place] (1.001 - 1.035) >= 1.030 Urine Protein (NEG,<30 MG/DL) 100 H Urine Ketones (NEG) NEG Urine Nitrite (NEG) NEG Urine Bilirubin (NEG) NEG Urine Urobilinogen (0.1 - 1.0 EU/dl) 1.0 Ur Leukocyte Esterase (NEG) TRACE H Ur Microscopic SEDIMENT EXAMINED Urine RBC (0 - 5 /HPF) 1-3 Urine WBC (0 - 2 /HPF) 10-15 H Ur Epithelial Cells (NONE,FEW) MOD H Urine Bacteria (NEG/NONE) MOD H Hyaline Casts (0/LPF) 1-3 H Urine Mucus (FEW,NONE) FEW Urine Hemoglobin (NEG) NEG Urine Glucose (N MG/DL) NEG 10/03 1420 Chemistry Sodium (137 - 145 mmol/L) 138 Potassium (3.5 - 5.1 mmol/L) 4.6 Chloride (98 - 107 mmol/L) 101 Carbon Dioxide (22 - 30 mmol/L) 24 Anion Gap (5 - 16) 13 BUN (7 - 17 mg/dL) 25 H Creatinine (0.5 - 1.0 mg/dL) 1.5 H Estimated GFR (>60 ml/min) 34 L BUN/Creatinine Ratio (7 - 25 %) 16.7 Glucose (65 - 99 mg/dL) 138 H Hemoglobin A1c (4.2 - 5.8 %) Pending Lactic Acid (0.7 - 2.1 mmol/L) 2.8 H Calcium (8.4 - 10.2 mg/dL) 9.5 Total Bilirubin (0.2 - 1.3 mg/dL) 2.7 H AST (14 - 36 U/L) 36 ALT (9 - 52 U/L) 19 Alkaline Phosphatase (<127 U/L) 73 Troponin I (< 0.11 ng/ml) 0.46 *H Total Protein (6.3 - 8.2 g/dL) 7.7 Albumin (3.5 - 5.0 g/dL) 3.5 Globulin (1.9 - 4.2 gm/dL) 4.2 Albumin/Globulin Ratio (1.1 - 2.2 %) 0.8 L TSH (0.270 - 4.200 uIU/mL) 7.780 H Coagulation PT (9.4 - 12.5 SEC) 24.1 H INR (0.90 - 1.19) 2.19 H APTT (25 - 37 SEC) 35 Hematology CBC w Diff MAN DIFF ORDERED WBC (4.8 - 10.8 /CUMM) 18.7 H RBC (4.20 - 5.40 /CUMM) 4.80 Hgb (12.0 - 16.0 G/DL) 13.8 Hct (37 - 47 %) 42.2 MCV (81.0 - 99.0 FL) 88.0 MCH (27.0 - 31.0 PG) 28.8 MCHC (33.0 - 37.0 G/DL) 32.8 L RDW (11.5 - 14.5 %) 17.0 H Plt Count (130 - 400 /CUMM) 88 L MPV (7.4 - 10.4 FL) 10.9 H Gran % (42.2 - 75.2 %) 90.0 H Lymphocytes % (20.5 - 51.1 %) 4.2 L Monocytes % (1.7 - 9.3 %) 5.7 Eosinophils % (0 - 5 %) 0 Basophils % (0.0 - 2.0 %) 0.1 Absolute Granulocytes (1.4 - 6.5 /CUMM) 16.8 H Segmented Neutrophils (42.2 - 75.2 %) 83 H Band Neutrophils (0.0 - 5.0 %) 5 Absolute Lymphocytes (1.2 - 3.4 /CUMM) 0.8 L Lymphocytes (20.5 - 51.1 %) 3 L Monocytes (1.7 - 9.3 %) 9 Absolute Monocytes (0.10 - 0.60 /CUMM) 1.1 H Absolute Eosinophils (0.0 - 0.7 /CUMM) 0 Absolute Basophils (0.0 - 0.2 /CUMM) 0 Platelet Estimate (ADEQUATE) DECREASED Polychromasia 1+ Anisocytosis 1+ Diagnostic Data EKG Results Tracing was personally reviewed and shows atrial fibrillation at 115 bpm with nonspecific STT abnormalities; likely old inferior infarct pattern CXR Results No CHF Other Results Telemetry tracings were personally reviewed and show atrial fibrillation with mild tachycardia Assessment/Plan Assessment/Plan 1. Sepsis/bacteremia likely due to soft tissue infection 2. Persistent atrial fibrillation on Coumadin 3. Remote history of myocardial infarction 4. Elevated troponin likely due to sepsis/renal insufficiency 5. History of diastolic CHF 6. Chronic renal insufficiency 7. History of hypertension/hypothyroidism/thrombocytopenia 8. Chronic venous insufficiency 9. Postherpetic neuralgia The mildly elevated troponin with flat troponin curve is likely due to sepsis; no evidence of acute coronary syndrome or CHF decompensation at this time. Would recommend obtaining a transthoracic echocardiogram; Coumadin is currently being held and she is receiving IV heparin. Follow-up infectious disease consult. Can continue on the twice daily oral Lopressor and would allow for some mild permissive tachycardia in the setting of sepsis. Feliciano Dasilva MD LOCATED WITHIN [facility] Consult Acknowledgment - Thank you for your consult request.
--- NOTE | 2017-10-04 07:53 | PN- Housestaff ---
[facility] 10/04/[facility] 0753: Subjective Follow-up For: Bacteremia and sepsis Type 2 AL Tele-Events Since Last Visit: Heart rate remained in 90s Subjective: No overnight events. Patient remained afebrile. Seen and examined this morning. She denied any chest pain, short of breath, nausea, vomiting, chills And dysuria. Patient reported having shooting pain on the right side of the face and neck. Patient having exertional shortness of breath that's her baseline. Review of Systems Constitutional: Denies: chills, fever. EENTM: Reports: no symptoms. Cardiovascular: Denies: chest pain, palpitations. Respiratory: Reports: short of breath. Denies: cough, sputum production. Gastrointestinal: Denies: abdominal pain, diarrhea, nausea. Genitourinary: Reports: no symptoms. Musculoskeletal: Reports: no symptoms. Neurological/Psychological: Reports: no symptoms. Objective Last 24 Hrs of Vital Signs/I&O Vital Signs Date Time Temp Pulse Resp B/P B/P Pulse O2 O2 Flow FiO2 Mean Ox Delivery Rate 10/04 0622 98.3 103 20 126/65 91 Room Air 10/03 2229 99.2 113 17 129/75 96 Room Air 10/03 1940 99.0 110 19 119/74 97 Room Air 10/03 1519 106 17 105/67 97 Room Air 10/03 1430 98.0 100 20 150/60 98 Room Air 10/03 1354 96 Room Air 10/03 1127 98.8 110 20 95/63 97 Room Air Intake & Output 10/04 1600 10/04 0800 10/04 0000 Intake Total Output Total 200 Balance -200 Output, Urine 200 Physical Exam General Appearance: Alert, Oriented X3, Cooperative Skin: No Rashes Skin Temp/Moisture Exam: Warm/Dry Sepsis Skin Exam (color): Normal for Ethnicity HEENT: Atraumatic, PERRLA, EOMI Neck: Supple Cardiovascular: Normal S1, Normal S2 Lungs: Clear to Auscultation Abdomen: Soft, No Tenderness Neurological: Normal Speech, Normal Tone Extremities: b/l PEDAL EDEMA Assessment/Plan Assessment: 77 YO obeses F with PMH of A.fib on coumadin, HTN, HLD, hypothyroidism, thrombocytopenia, chronic lymphadema of legs, CKD stage 2, recent history of shingles, necrotizing fasciitis, pulmonary hypertension, chronic diastolic CHF and macular degeneration came to ED with chief complaint of right-sided face, neck pain and fever for last couple of days. We are following the patient on telemetry floor to treat for following problems: Bacteremia with sepsis: -Patient is meeting 2 out of 4 criteria of SIRS. pulse 110, wbc 18.7. lactic acid 2.8 and deranged LFTs and elevated creatinine. -Probably due to soft tissue infection, protitis of right side or due to left foot infection. -Follow blood and urine cultures. -USG abdomen to rule out biliary obstruction -Continue vancomycin iv -x-ray left foot to rule out osteomyelitis if negative then we will do MRI. -We will follow ID recommendations Type 2 AL: -Probably due to sepsis -Cardio consult -Echo is pending. H/O A.fib: -Hold warfarin and transition to heparin H/O CAD: -Continue metoprolol H/O hypothyroidism: -Continue levothyroxin -TSH H/O thrombocytopenia: -Avoid meds that decrease the number or function of platelets. DVT prophylaxis: Mechanical and heparin Code status: Full code Problem List: 1. Elevated troponin 2. Sepsis 3. Bacteremia Pain Ratin Pain Location: on left side of face Pain Goal: Remain pain free Pain Plan: pain pathway Tomorrow's Labs & Rationales: cbc/bep/inr Eulogio CHAMBERS,[facility] 10/04/17 1401: Objective Last 24 Hrs of Vital Signs/I&O Vital Signs Date Time Temp Pulse Resp B/P B/P Pulse O2 O2 Flow FiO2 Mean Ox Delivery Rate 10/04 1207 91 Room Air 10/04 1138 105 18 128/70 92 Room Air 10/04 0622 98.3 103 20 126/65 91 Room Air 10/03 2229 99.2 113 17 129/75 96 Room Air 10/03 1940 99.0 110 19 119/74 97 Room Air 10/03 1519 106 17 105/67 97 Room Air 10/03 1430 98.0 100 20 150/60 98 Room Air Intake & Output 10/04 1600 10/04 0800 10/04 0000 Intake Total Output Total 200 Balance -200 Output, Urine 200 Patient 378 lb Weight Weight Standing Scale Measurement Method Attending MD Review Statement Attending Statement Attending MD Statement: examined this patient, discuss w/resident/PA/COAL CARRIER, agreed w/resident/PA/COAL CARRIER, discussed with family, reviewed EMR data (avail), discussed with nursing, discussed with case mgmt, reviewed images, amended to note Attending Assessment/Plan: Events and data reviewed Post herpitic pain noted This is a 77-year-old lady with history of morbid obesity, chronic lymphedema of the legs and abd wall, hypothyroidism, atrial fibrillation on anticoagulation with warfarin, chronic venous insufficiency, previous history of vein closure, previous history of significant necrotizing fasciitis with sepsis septic shock in 2013, left-sided soft tissue infection of the thigh leading to necrotizing fasciitis with a wound VAC with subsequent healing, morbid obesity, secondary pulmonary hypertension, previous postoperative respiratory failure, hyperlipidemia, previous clinical diabetes, chronic kidney disease stage II with previous acute renal insufficiency, recent admission to [facility] with sepsis with septic shock and toxic shock due to cellulitis and lymphedema, chronic diastolic chf, now comes with * Fever with gram positive bacteremia with sepsis due to prob soft tissue infection of the neck vs parotitis of the right side vs foot infection of the left side. Pt did have sig shingles of the rt side of the neck with post herpetic neuralgia with prob impetigo of the rt neck, but did have a callous of the left foot and may have an infection * Foot ulcer on the sole of the lt foot with mild tenderness rule out osteo * Atrial fibrillation chronic on anticoag on warfarin * Chronic kidney disease stage II * Hyperbilirubinemia related to sepsis, unlikely Biliary sepsis - however, pt did have biliary sludge before will need ultrasound * Hypothyroidism on appropriate supplementation * Mild chronic thrombocytopenia * Chronic anemia probably multifactorial * Chronicdiastolic heart disease * Morbid obesity, with sig lymphedema and recurrent cellulitis * Remote AL now with type II NSTEMI now with mildly elevated trop REC IV abx Foot xray and if neg mri IV heparin for now in anticipation of any procedures she may need IV vanco ID eval appretiated Await cultures Watch blood work Rule out AL and follow troponin Cont levoxyl, check free t4 for now Will follow
--- NOTE | 2017-10-04 09:58 | Cons- Infect Disease ---
General Information and HPI Consulting Request Date of Consult: 10/04/17 Requested By: Eulogio CHAMBERS,Jason Welsh Reason for Consult: Positive blood cultures for gram-positive cocci in clusters Source of Information: patient, family, old records History of Present Illness: This is a 77-year-old woman, morbidly obese, with a history of hypertension, atrial fibrillation, maintained on Coumadin, hypothyroidism, venous insufficiency with chronic erythema and edema of the left leg, MRSA positive, with a history of necrotizing fasciitis of the left thigh 3 1/2 years prior to admission, last hospitalized 7 months prior to admission with Group B strep sepsis attributed to a left leg cellulitis, with her hospital course notable for a rash, felt possibly secondary to Ampicillin, treated for shingles of the right neck 2 months prior to admission, with postherpetic neuralgia in the form of burning pain since then, and with the development of a callus on the left foot several months prior to admission, which has drained intermittently, seen in the emergency room one day prior to admission with the acute onset of fever, found to be febrile to 101 with a white blood cell count of 10,000, platelets 99,000, bilirubin 1.9, urinalysis 1-3 RBCs/5-10 WBCs and a negative chest x-ray, given a dose of po Clindamycin and po Moxifloxacin and discharged home, admitted on October 03 after she was called back to the emergency room because of 2 sets of positive blood cultures for gram-positive cocci in clusters. On admission she was afebrile. Laboratory data revealed a white blood cell count of 19,000, platelets 88,000, BUN/creatinine 25 and 1.5, lactic acid 2.8, bilirubin 2.7, troponin 0.46, TSH 7.78, INR 2.19, urinalysis 1-3 RBCs/10-[address] of the neck was negative. She was begun on Vancomycin and has remained afebrile since admission. At present she does note increased shortness of breath compared to her baseline but offers no other complaints. Allergies/Medications Allergies: Coded Allergies: Penicillins (RASH 10/02/17) Uncoded Allergies: CONTRAST DYE (UNKNOWN 10/02/17) Home Med List: Ferrous Sulfate 325 MG (65 MG IRON) TABLET 1 TAB PO BID IRON, VITAMIN ( Reported) Levothyroxine Sodium (Synthroid) 125 MCG TABLET 0.125 MG PO DAILY AC thyroid . Metoprolol Tartrate 25 MG TABLET 3 TAB PO BID Heart Rate . Warfarin Sodium (Coumadin) 2.5 MG TABLET 1 TAB PO DAILY BLOOD THINNER ( Reported) Past History Travel History Traveled to [place] past 21 day No Medical History Neurological: NONE EENT: MACULAR DEGENERATION BLIN LEGALLY BLIND Cardiovascular: AFIB, hypertension Respiratory: N/A Gastrointestinal: N/A Hepatic: N/A Renal: N/A Musculoskeletal: NECROTIZING FASCIITIS left lower ext lymphedema Psychiatric: N/A Endocrine: hypothyroidism, obesity Blood Disorders: N/A Cancer(s): N/A TRENCH PIPE LAYER/Reproductive: N/A History of MRSA: Yes History of VRE: No History of CDIFF: No Isolation History: Contact Surgical History Surgical History: debridement left thigh s/p venous closure LLE Psychosocial History Services at Home: None ETOH Use: denies use Illicit Drug Use: denies illicit drug use Review of Systems Review of Systems Cardiovascular: Denies: chest pain. Respiratory: Reports: short of breath. Denies: cough. GI: Reports: no symptoms. Genitourinary: Reports: no symptoms. All Other Systems: Reviewed and Negative Exam & Diagnostic Data Last 24 Hrs of Vital Signs/I&O Vital Signs Date Time Temp Pulse Resp B/P B/P Pulse O2 O2 Flow FiO2 Mean Ox Delivery Rate 10/04 0622 98.3 103 20 126/65 91 Room Air 10/03 2229 99.2 113 17 129/75 96 Room Air 10/03 1940 99.0 110 19 119/74 97 Room Air 10/03 1519 106 17 105/67 97 Room Air 10/03 1430 98.0 100 20 150/60 98 Room Air 10/03 1354 96 Room Air 10/03 1127 98.8 110 20 95/63 97 Room Air Intake & Output 10/04 1600 10/04 0800 10/04 0000 Intake Total Output Total 200 Balance -200 Output, Urine 200 Physical Exam Other Physical Findings: Afebrile. She is awake and alert in no acute distress. Skin reveals a macular rash on her face. HEENT negative. Neck is supple with no adenopathy; scarred lesions on the right side of her neck with no erythema or tenderness on palpation. Lungs are clear. Heart regular rhythm with no murmur. Abdomen is obese, soft, nontender with positive bowel sounds. Back no CVA tenderness. Extremities bilateral lower extremity edema, left greater than right; mild erythema over the anterior tibial aspect of both lower extremities, left greater than right, nontender on palpation; left foot plantar callus with no active drainage or surrounding inflammation; pulses 1+ and equal. Neuro is without focality. Last 24 Hours of Lab Results: Laboratory Tests 10/04 10/04 10/04 10/03 0530 0204 0204 2200 Chemistry Sodium (137 - 145 mmol/L) 136 L Potassium (3.5 - 5.1 mmol/L) 4.2 Chloride (98 - 107 mmol/L) 105 Carbon Dioxide (22 - 30 mmol/L) 21 L Anion Gap (5 - 16) 10 BUN (7 - 17 mg/dL) 27 H Creatinine (0.5 - 1.0 mg/dL) 1.4 H Estimated GFR (>60 ml/min) 37 L BUN/Creatinine Ratio (7 - 25 %) 19.3 Lactic Acid (0.7 - 2.1 mmol/L) 1.8 1.9 Total Bilirubin (0.2 - 1.3 mg/dL) 2.3 H Troponin I (< 0.11 ng/ml) 0.42 *H Coagulation APTT (25 - 37 SEC) 53 H Hematology CBC w Diff NO MAN DIFF REQ WBC (4.8 - 10.8 /CUMM) 13.5 H RBC (4.20 - 5.40 /CUMM) 4.58 Hgb (12.0 - 16.0 G/DL) 13.0 Hct (37 - 47 %) 40.9 MCV (81.0 - 99.0 FL) 89.3 MCH (27.0 - 31.0 PG) 28.4 MCHC (33.0 - 37.0 G/DL) 31.8 L RDW (11.5 - 14.5 %) 17.2 H Plt Count (130 - 400 /CUMM) 86 L MPV (7.4 - 10.4 FL) 10.9 H Gran % (42.2 - 75.2 %) 82.9 H Lymphocytes % (20.5 - 51.1 %) 7.7 L Monocytes % (1.7 - 9.3 %) 9.1 Eosinophils % (0 - 5 %) 0.1 Basophils % (0.0 - 2.0 %) 0.2 Absolute Granulocytes (1.4 - 6.5 /CUMM) 11.2 H Absolute Lymphocytes (1.2 - 3.4 /CUMM) 1.0 L Absolute Monocytes (0.10 - 0.60 /CUMM) 1.2 H Absolute Eosinophils (0.0 - 0.7 /CUMM) 0 Absolute Basophils (0.0 - 0.2 /CUMM) 0 10/03 Chemistry Lactic Acid (0.7 - 2.1 mmol/L) 2.7 H Troponin I (< 0.11 ng/ml) 0.54 *H Urines Urine Color (YEL,AMB,STR) YEL Urine Clarity (CLEAR) CLEAR Urine pH (5.0 - 8.0) 5.5 Ur Specific [place] (1.001 - 1.035) >= 1.030 Urine Protein (NEG,<30 MG/DL) 100 H Urine Ketones (NEG) NEG Urine Nitrite (NEG) NEG Urine Bilirubin (NEG) NEG Urine Urobilinogen (0.1 - 1.0 EU/dl) 1.0 Ur Leukocyte Esterase (NEG) TRACE H Ur Microscopic SEDIMENT EXAMINED Urine RBC (0 - 5 /HPF) 1-3 Urine WBC (0 - 2 /HPF) 10-15 H Ur Epithelial Cells (NONE,FEW) MOD H Urine Bacteria (NEG/NONE) MOD H Hyaline Casts (0/LPF) 1-3 H Urine Mucus (FEW,NONE) FEW Urine Hemoglobin (NEG) NEG Urine Glucose (N MG/DL) NEG 10/03 1420 Chemistry Sodium (137 - 145 mmol/L) 138 Potassium (3.5 - 5.1 mmol/L) 4.6 Chloride (98 - 107 mmol/L) 101 Carbon Dioxide (22 - 30 mmol/L) 24 Anion Gap (5 - 16) 13 BUN (7 - 17 mg/dL) 25 H Creatinine (0.5 - 1.0 mg/dL) 1.5 H Estimated GFR (>60 ml/min) 34 L BUN/Creatinine Ratio (7 - 25 %) 16.7 Glucose (65 - 99 mg/dL) 138 H Hemoglobin A1c (4.2 - 5.8 %) 5.6 Lactic Acid (0.7 - 2.1 mmol/L) 2.8 H Calcium (8.4 - 10.2 mg/dL) 9.5 Total Bilirubin (0.2 - 1.3 mg/dL) 2.7 H AST (14 - 36 U/L) 36 ALT (9 - 52 U/L) 19 Alkaline Phosphatase (<127 U/L) 73 Troponin I (< 0.11 ng/ml) 0.46 *H Total Protein (6.3 - 8.2 g/dL) 7.7 Albumin (3.5 - 5.0 g/dL) 3.5 Globulin (1.9 - 4.2 gm/dL) 4.2 Albumin/Globulin Ratio (1.1 - 2.2 %) 0.8 L TSH (0.270 - 4.200 uIU/mL) 7.780 H Coagulation PT (9.4 - 12.5 SEC) 24.1 H INR (0.90 - 1.19) 2.19 H APTT (25 - 37 SEC) 35 Hematology CBC w Diff MAN DIFF ORDERED WBC (4.8 - 10.8 /CUMM) 18.7 H RBC (4.20 - 5.40 /CUMM) 4.80 Hgb (12.0 - 16.0 G/DL) 13.8 Hct (37 - 47 %) 42.2 MCV (81.0 - 99.0 FL) 88.0 MCH (27.0 - 31.0 PG) 28.8 MCHC (33.0 - 37.0 G/DL) 32.8 L RDW (11.5 - 14.5 %) 17.0 H Plt Count (130 - 400 /CUMM) 88 L MPV (7.4 - 10.4 FL) 10.9 H Gran % (42.2 - 75.2 %) 90.0 H Lymphocytes % (20.5 - 51.1 %) 4.2 L Monocytes % (1.7 - 9.3 %) 5.7 Eosinophils % (0 - 5 %) 0 Basophils % (0.0 - 2.0 %) 0.1 Absolute Granulocytes (1.4 - 6.5 /CUMM) 16.8 H Segmented Neutrophils (42.2 - 75.2 %) 83 H Band Neutrophils (0.0 - 5.0 %) 5 Absolute Lymphocytes (1.2 - 3.4 /CUMM) 0.8 L Lymphocytes (20.5 - 51.1 %) 3 L Monocytes (1.7 - 9.3 %) 9 Absolute Monocytes (0.10 - 0.60 /CUMM) 1.1 H Absolute Eosinophils (0.0 - 0.7 /CUMM) 0 Absolute Basophils (0.0 - 0.2 /CUMM) 0 Platelet Estimate (ADEQUATE) DECREASED Polychromasia 1+ Anisocytosis 1+ Last 24 Hours of Sorin Results: Blood cultures 2 October 02 positive for Staph aureus Blood cultures October 03 negative Rapid flu swab October 02 negative Urine culture October 03 pending Diagnostic Data Recent Imaging Findings: Chest x-ray October [address] of the neck October 03 revealed degenerative spondylosis of the spine with multilevel disc height narrowing, endplate spurring and facet joint arthrosis with no acute findings Assessment/Plan Assessment/Plan Impression: This is a 77-year-old woman, morbidly obese, with a history of venous insufficiency, chronic erythema and edema of the left leg, last hospitalized 7 months prior to admission with Group B strep sepsis attributed to a left leg cellulitis and with the development of a callus on the left foot several months prior to admission, which has drained intermittently, admitted on October 03 after blood cultures obtained in the ER, where she was seen one day prior to admission for a fever, were found to be positive for gram-positive cocci in clusters. The blood cultures have been identified as Staph aureus. She has no obvious source of sepsis but suspect a cellulitis of the lower extremities, given the bilateral (left greater than right) erythema and edema. The left foot callus is also a possible source, given the history of drainage though there is minimal surrounding inflammation, and further evaluation to rule out osteomyelitis may need to be considered. Her right neck pain presumably represents postherpetic neuralgia and there is no evidence for any inflammation in this area to suggest this as a source. Endocarditis will need to be ruled out given the isolation of Staph aureus in the blood. The rash on her previous admission may have been secondary to Ampicillin, with eosinophilia noted at that time, though she had no history of a Penicillin allergy, she was able to be continued on the Ampicillin despite the rash and she appears to have tolerated the Ceftazidime given yesterday afternoon. She does have a history of MRSA and, therefore, Vancomycin can be continued pending final cultures. Her thrombocytopenia and hyperbilirubinemia are likely secondary to sepsis. Her elevated troponin is felt to be related to her sepsis with no evidence of acute coronary syndrome. Suggestion: 1. X-ray of the left foot and, if negative, would pursue MRI of the foot 2. Elevation of the left leg 3. Echocardiogram 4. Follow-up final blood cultures 5. Continue Vancomycin pending above Consult Acknowledgment - Thank you for your consult request.
[2017-10-04 13:27] LABS: PTT 75 SEC (25-37)
--- NOTE | 2017-10-04 15:26 | RADIOLOGY REPORT ---
EXAMINATION: XR FOOT, LEFT CLINICAL INFORMATION: Left foot swelling and redness. Rule out osteomyelitis. COMPARISON: None TECHNIQUE: AP, lateral, and oblique views of the left foot. FINDINGS: There is diffuse soft tissue swelling about the ankle. Extensive dorsal soft tissue swelling is seen overlying the forefoot. The underlying bones appear intact with no acute fracture, dislocation, abnormal periosteal reaction or focal lytic or destructive bone lesion seen. There are flexion deformities of the second through fifth toes seen, likely related to hammertoe deformities. This limits assessment slightly. There is some spurring and rarefaction of the bone along the ventral surface of the first metacarpal tarsal head. Similar findings are seen with cortical irregularity and cystic changes involving the sesamoid bones at the first MTP joint. These findings are most likely related to degenerative changes. IMPRESSION: 1. Prominent soft tissue swelling overlying the ankle and especially the dorsum of the forefoot. No underlying fracture or dislocation or radiopaque foreign body. No subcutaneous emphysema. 2. No plain film evidence of osteomyelitis. 3. Prominent lucencies seen at the first MTP joint and the associated sesamoid bones, most likely on a degenerative basis. Close clinical correlation is requested.
--- NOTE | 2017-10-04 16:26 | ULTRASOUND REPORT ---
EXAMINATION: US TRIPLEX OF LOWER EXTREMITIES, BILATERAL CLINICAL INFORMATION: bilateral lower extremity swelling COMPARISON: None TECHNIQUE: Color-flow triplex imaging with spectral analysis and compression Doppler were performed on the lower extremities. FINDINGS: Respiratory variation, normal compression and augmented flow are noted throughout the lower extremities. The visualized common femoral vein, superficial femoral vein, profunda femoral vein, popliteal vein and midcalf peroneal and posterior tibial venous segments show no evidence of deep venous thrombosis. There is no Covarrubias's cyst. IMPRESSION: Normal triplex scan without evidence of deep venous thrombosis involving the lower extremities.
--- NOTE | 2017-10-04 16:50 | ULTRASOUND REPORT ---
EXAMINATION: US ABDOMEN COMPLETE CLINICAL INFORMATION: Elevated bilirubin. Bacteremia. Rule out acute pathology. COMPARISON: Abdominal ultrasound dated 03/06/2017. TECHNIQUE: Real-time imaging of the abdominal viscera. FINDINGS: PANCREAS: Obscured by overlying bowel gas. ABDOMINAL AORTA: The proximal segment is normal in caliber. INFERIOR VENA CAVA: Visualized portions are normal. LIVER: Poorly visualized. Liver appears enlarged with the right lobe extending below the lower pole of the right kidney. No focal lesion or intrahepatic biliary duct dilatation appreciated on this suboptimal exam. GALLBLADDER: Not seen. COMMON BILE DUCT: Not seen. RIGHT KIDNEY: Poorly seen. No hydronephrosis. No renal calculi or focal parenchymal lesions. The kidney measures 8.5 cm in maximum dimension. LEFT KIDNEY: Only partially visualized and poorly assessed. SPLEEN: Normal. The spleen measures 12.6 cm in maximum dimension. FREE FLUID: None. IMPRESSION: Extremely limited exam with nonvisualization of the pancreas, gallbladder, common bile duct, and poor diagnostic quality of the liver, right and left kidneys. Consider alternative means of imaging such as CT scan depending on clinical circumstances.
[2017-10-04 17:30] VITALS: BP 148/94
[2017-10-04 22:52] VITALS: BP 136/90
[2017-10-05 02:25] LABS: PTT 60 SEC (25-37)
[2017-10-05 06:53] VITALS: BP 128/64
--- NOTE | 2017-10-05 07:54 | PN- Housestaff ---
[facility] Subjective Follow-up For: Bacteremia and sepsis Type 2 [place] Tele-Events Since Last Visit: Patient remained in A. fib with heart rate between [id number] Subjective: No overnight events. Patient remained afebrile overnight. Seen and examined this morning. She denied any chest pain, palpitation, nausea, vomiting, chills, fever, abdominal pain dysuria. She has exertional dyspnea bedside baseline. Her left foot on the plantar side has tenderness. Review of Systems Constitutional: Denies: chills, fever. EENTM: Reports: no symptoms. Cardiovascular: Denies: chest pain, palpitations. Respiratory: Reports: short of breath. Denies: cough, sputum production. Gastrointestinal: Denies: abdominal pain, constipation, diarrhea, nausea. Genitourinary: Reports: no symptoms. Musculoskeletal: Reports: see HPI. Neurological/Psychological: Reports: no symptoms. Objective Last 24 Hrs of Vital Signs/I&O Vital Signs Date Time Temp Pulse Resp B/P B/P Pulse O2 O2 Flow FiO2 Mean Ox Delivery Rate 10/05 0653 98.8 83 22 128/64 92 Nasal Cannula 10/05 0000 Room Air 10/04 2252 99.5 119 24 136/90 93 Nasal Cannula 10/04 1730 97.9 122 24 148/94 92 Nasal Cannula 10/04 1713 Room Air 10/04 1440 98.5 109 20 132/70 93 Room Air 10/04 1207 91 Room Air 10/04 1138 105 18 128/70 92 Room Air Intake & Output 10/05 1600 10/05 0800 10/05 0000 Intake Total 1155.06 537.6 Output Total 250 Balance 1155.06 287.6 Intake, IV 1035.06 297.6 Intake, Oral 120 240 Output, Urine 250 Patient 382 lb Weight Weight Bed scale Measurement Method Physical Exam General Appearance: Alert, Oriented X3, Cooperative Skin Temp/Moisture Exam: Warm/Dry Sepsis Skin Exam (color): Normal for Ethnicity HEENT: Atraumatic, PERRLA, EOMI Neck: Supple Cardiovascular: Normal S1, Normal S2 Lungs: B/L decreased breath sounds Abdomen: Soft, No Tenderness Neurological: Normal Speech, Strength at 5/5 X4 Ext, Normal Tone Extremities: B/L pedal edema., Left foot tenderness on plantar surface. Assessment/Plan Assessment: 77 YO obeses F with PMH of A.fib on coumadin, HTN, HLD, hypothyroidism, thrombocytopenia, chronic lymphadema of legs, CKD stage 2, recent history of shingles, necrotizing fasciitis, pulmonary hypertension, chronic diastolic CHF and macular degeneration came to ED with chief complaint of right-sided face, neck pain and fever for last couple of days. We are following the patient on telemetry floor to treat for following problems: Bacteremia with sepsis: -Two blood cultures are positive for gram-positive cocci. -Probably due to soft tissue infection, protitis of right side or due to left foot infection. -Follow urine cultures. -USG abdomen to rule out biliary obstruction -Continue vancomycin iv -x-ray left foot is negative and she is going for MRI of left foot today. -Doppler studies negative for DVT -Her creatinine level is close to her baseline. -We will follow ID recommendations Type 2 [place]: -Probably due to sepsis -F/U Cardio recommendations -Echo is pending. H/O A.fib: -Hold warfarin and transition to heparin H/O CAD: -Continue metoprolol H/O diastolic CHF: -Continue her home meds. H/O hypothyroidism: -Continue levothyroxin -TSH H/O thrombocytopenia: -Avoid meds that decrease the number or function of platelets. -HIT pannel was ordered to rule out heparin induced thrombocytopenia. DVT prophylaxis: Mechanical and heparin Code status: Full code Problem List: 1. Bacteremia 2. Sepsis 3. Elevated troponin Pain Ratin Pain Location: none Pain Goal: Remain pain free Pain Plan: pain pathway Tomorrow's Labs & Rationales: bep/cbc Eulogio CHAMBERS,[facility] 10/05/17 1404: Objective Last 24 Hrs of Vital Signs/I&O Vital Signs Date Time Temp Pulse Resp B/P B/P Pulse O2 O2 Flow FiO2 Mean Ox Delivery Rate 10/05 0923 107 138/98 10/05 0800 Room Air 10/05 0653 98.8 83 22 128/64 92 Nasal Cannula 10/05 0000 Room Air 10/04 2252 99.5 119 24 136/90 93 Nasal Cannula 10/04 1730 97.9 122 24 148/94 92 Nasal Cannula 10/04 1713 Room Air 10/04 1440 98.5 109 20 132/70 93 Room Air Intake & Output 10/05 1600 10/05 0800 10/05 0000 Intake Total 1155.06 537.6 Output Total 250 Balance 1155.06 287.6 Intake, IV 1035.06 297.6 Intake, Oral 120 240 Output, Urine 250 Patient 382 lb Weight Weight Bed scale Measurement Method Attending MD Review Statement Attending Statement Attending MD Statement: examined this patient, discuss w/resident/PA/COLLAR SETTER OVERLOCK, agreed w/resident/PA/COLLAR SETTER OVERLOCK, discussed with family, reviewed EMR data (avail), discussed with nursing, discussed with case mgmt, reviewed images, amended to note Attending Assessment/Plan: Agree with above She complains of increased shortness of breath, particularly with exertion and was unable to do the MRI because she was too short of breath to walk to the table Pt with Staph sepsis with prob cellulitis as the source- id eval noted This is a 77-year-old lady with history of morbid obesity, chronic lymphedema of the legs and abd wall, hypothyroidism, atrial fibrillation on anticoagulation with warfarin, chronic venous insufficiency, previous history of vein closure, previous history of significant necrotizing fasciitis with sepsis septic shock in 2013, left-sided soft tissue infection of the thigh leading to necrotizing fasciitis with a wound VAC with subsequent healing, morbid obesity, secondary pulmonary hypertension, previous postoperative respiratory failure, hyperlipidemia, previous clinical diabetes, chronic kidney disease stage II with previous acute renal insufficiency, recent [facility] with sepsis with septic shock and toxic shock due to cellulitis and lymphedema, chronic diastolic chf, now comes with * Fever with MSSA sepsis due to prob soft tissue infection of the foot ID Following * Foot ulcer on the sole of the lt foot with mild tenderness rule out osteo Could not do mri * Atrial fibrillation chronic on anticoag on warfarin/now with prob Type 2 [place] with dyspnea rule out mild chf * Chronic kidney disease stage II creat better * Hyperbilirubinemia related to sepsis, unlikely Biliary sepsis - however, pt did have biliary sludge ultrasound reviewed * Hypothyroidism on appropriate supplementation, will recheck tsh in 3 days * Mild chronic thrombocytopenia due to sepsis * Chronic anemia probably multifactorial * Chronic diastolic heart disease * Morbid obesity, with sig lymphedema and recurrent cellulitis * Remote [place] now with type II NSTEMI now with elevated trop PLAN IV abx per id ECHO Cardio following Attempt to do MRI on 10/08 BNP Cxr COnt heparin Will follow
[2017-10-05 07:55] LABS: ABSOLUTE BASOPHIL COUNT 0 /CUMM (0.0-0.2); ABSOLUTE EOSINOPHIL COUNT 0 /CUMM (0.0-0.7); ABSOLUTE GRANULOCYTE CT 7.3 /CUMM (1.4-6.5); ABSOLUTE LYMPH COUNT 1.5 /CUMM (1.2-3.4); ABSOLUTE MONOCYTE COUNT 1.1 /CUMM (0.10-0.60); BASOPHIL % 0.3 % (0.0-2.0); EOSINOPHIL % 0.4 % (0-5); GRANULOCYTE % 73.3 % (42.2-75.2); HEMATOCRIT 39.5 % (37-47); MEAN CORPUSCULAR HGB 29.2 PG (27.0-31.0); MEAN CORPUSCULAR HGB CONC 32.9 G/DL (33.0-37.0); MEAN CORPUSCULAR VOLUME 88.8 FL (81.0-99.0); MEAN PLATELET VOLUME 11.2 FL (7.4-10.4); PLATELET COUNT 77 /CUMM (130-400); RBC DISTRIBUTION WIDTH 17.4 % (11.5-14.5); RED BLOOD CELL CT 4.45 /CUMM (4.20-5.40); WHITE BLOOD CELL COUNT 9.9 /CUMM (4.8-10.8)
[2017-10-05 08:23] LABS: PT 19.9 SEC (9.4-12.5)
--- NOTE | 2017-10-05 08:25 | PN- Student ---
JudyGabe Judd 10/05/17 0824: Subjective Subjective: No acute events overnight. Patient seen and examined this morning. Patient resting in bed. Complains of SOB with exertion. Complain of loose stool last night. Complain of left foot tenderness over the plantar side. Denied chest pain , abd pain, dysuria, leg pain, nausea, vomiting. Objective Objective: Vitals: T= 98.8 HR= 83 RR= 22 BP= 128-148/64-94 O2Sat= 92 I&O: H=8207 O=200 I=6375 1 loose BM PE: General= obese pleasant female. Alert and oriented. In no acute distress but unconfortable resting in bed. Neck= scartted scar lesion on the right side of the neck. Painful to palpation in the post-auricular area. Lungs= expiratory stridor sound transmisible to the neck. Clear bilateral breath sound. CVS= regular rate and rythm Abdomen= no visible organomegaly. Obese. Present bowel sounds. Soft, non-tender. Extremities= lower extremity +1 pitting edema. Left foot plantar callus with no active drainage or surrounding inflammation. Results Results: Laboratory Tests 10/05/17 0630: Anion Gap 12, Estimated GFR 48 L, BUN/Creatinine Ratio 21.8, PT 19.9 H, INR 1.81 H, CBC w Diff Pending, WBC Pending, RBC Pending, Hgb Pending, Hct Pending, MCV Pending, MCH Pending, MCHC Pending, RDW Pending, Plt Count Pending, MPV Pending, Gran % Pending, Lymphocytes % Pending, Monocytes % Pending, Eosinophils % Pending, Basophils % Pending, Absolute Granulocytes Pending, Absolute Lymphocytes Pending, Absolute Monocytes Pending, Absolute Eosinophils Pending, Absolute Basophils Pending 10/05/17 0129: APTT 60 H 10/04/17 1631: Free T4 Cancelled 10/04/17 1310: APTT 75 H 10/04/17 0530: Anion Gap 10, Estimated GFR 37 L, BUN/Creatinine Ratio 19.3, Total Bilirubin 2.3 H, Free T4 1.19, APTT 53 H, CBC w Diff NO MAN DIFF REQ, RBC 4.58, MCV 89.3 , MCH 28.4, MCHC 31.8 L, RDW 17.2 H, MPV 10.9 H, Gran % 82.9 H, Lymphocytes % 7.7 L, Monocytes % 9.1, Eosinophils % 0.1, Basophils % 0.2, Absolute Granulocytes 11.2 H, Absolute Lymphocytes 1.0 L, Absolute Monocytes 1.2 H, Absolute Eosinophils 0, Absolute Basophils 0 10/04/17 0204: Troponin I 0.42 *H 10/04/17 0204: Lactic Acid 1.8 10/03/170: Lactic Acid 1.9 10/03/172021: Urine Color YEL, Urine Clarity CLEAR, Urine pH 5.5, Ur Specific [place] >= 1.030 , Urine Protein 100 H, Urine Ketones NEG, Urine Nitrite NEG, Urine Bilirubin NEG, Urine Urobilinogen 1.0, Ur Leukocyte Esterase TRACE H, Ur Microscopic SEDIMENT EXAMINED, Urine RBC 1-3, Urine WBC 10-15 H, Ur Epithelial Cells MOD H , Urine Bacteria MOD H, Hyaline Casts 1-3 H, Urine Mucus FEW, Urine Hemoglobin NEG, Urine Glucose NEG 10/03/171954: Troponin I 0.54 *H 10/03/17 1744: Lactic Acid 2.7 H 10/03/17 1420: Anion Gap 13, Estimated GFR 34 L, BUN/Creatinine Ratio 16.7, Glucose 138 H, Hemoglobin A1c 5.6, Lactic Acid 2.8 H, Calcium 9.5, Total Bilirubin 2.7 H, AST 36, ALT 19, Alkaline Phosphatase 73, Troponin I 0.46 *H, Total Protein 7.7, Albumin 3.5, Globulin 4.2, Albumin/Globulin Ratio 0.8 L, TSH 7.780 H, PT 24.1 H, INR 2.19 H, APTT 35, CBC w Diff MAN DIFF ORDERED, RBC 4.80, MCV 88.0, MCH 28.8, MCHC 32.8 L, RDW 17.0 H, MPV 10.9 H, Gran % 90.0 H, Lymphocytes % 4.2 L, Monocytes % 5.7, Eosinophils % 0, Basophils % 0.1, Absolute Granulocytes 16.8 H, Segmented Neutrophils 83 H, Band Neutrophils 5, Absolute Lymphocytes 0.8 L , Lymphocytes 3 L, Monocytes 9, Absolute Monocytes 1.1 H, Absolute Eosinophils 0, Absolute Basophils 0, Platelet Estimate DECREASED, Polychromasia 1+, Anisocytosis 1+ Microbiology 10/03 2021 URINE ROUT: Urine Culture - RES 10/03 1810 BLOOD: Blood Culture - RES GRAM POSITIVE COCCI 10/03 174 BLOOD: Blood Culture - RES GRAM POSITIVE COCCI Assessment/Plan Assessment: 77 y/o F morbidly obese with hx of venous insuficiency. Blood cx showed S. aureus. Patiet admitted due to cellulities in the right leg. Patient in the tely flood due to hx of a-fib and elevated troponin. Plan: Bacteremia with sepsis: -Probably due to soft tissue infection, protitis of right side or due to left foot infection. -Follow blood and urine cultures -USG abdomen limitted -Discontinue Vancomycin IV -X-ray: did not showed any evidence of osteomielity. -MRI was unable to be performed (patient become SOB walking to the MRI bed) -Negative venous US -F/U ID recommendations: Oxicillin sensitive S. aureus, start Cefazolin 2g IV Q 8 Type 2 FL: -Probably due to sepsis -F/U Cardio recommendations -F/U ECHO results A.fib: -Hold warfarin and transition to heparin CAD: -Continue metoprolol Hypothyroidism: -Continue levothyroxin -TSH Thrombocytopenia: -Probably due to sepsis DVT prophylaxis: Mechanical and heparin
[2017-10-05 09:23] VITALS: BP 138/98
[2017-10-05 10:27] LABS: PTT 71 SEC (25-37)
--- NOTE | 2017-10-05 12:05 | PN- Infect Dx ---
Subjective Subjective: Afebrile. She complains of increased shortness of breath, particularly with exertion and was unable to do the MRI because she was too short of breath to walk to the table Objective Last 24 Hrs of Vital Signs/I&O Vital Signs Date Time Temp Pulse Resp B/P B/P Pulse O2 O2 Flow FiO2 Mean Ox Delivery Rate 10/05 922 107 138/98 10/05 0800 Room Air 10/05 0653 98.8 83 22 128/64 92 Nasal Cannula 10/05 0000 Room Air 10/04 2252 99.5 119 24 136/90 93 Nasal Cannula 10/04 1730 97.9 122 24 148/94 92 Nasal Cannula 10/04 1713 Room Air 10/04 1440 98.5 109 20 132/70 93 Room Air 10/04 1207 91 Room Air Intake & Output 10/05 1600 10/05 0800 10/05 0000 Intake Total 1155.06 537.6 Output Total 250 Balance 1155.06 287.6 Intake, IV 1035.06 297.6 Intake, Oral 120 240 Output, Urine 250 Patient 382 lb Weight Weight Bed scale Measurement Method Physical Exam Other Physical Findings: She appears comfortable in no acute distress Skin no rash Lungs are clear Heart regular rhythm with no murmur Abdomen is obese, soft, nontender with positive bowel sounds Extremities decreased erythema and edema of both legs, with no tenderness on palpation; plantar callus on the left foot with no surrounding inflammation or drainage Results Last 24 Hours of Lab Results: Laboratory Tests 10/05 10/05 10/05 0905 0630 0129 Chemistry Sodium (137 - 145 mmol/L) 136 L Potassium (3.5 - 5.1 mmol/L) 4.3 Chloride (98 - 107 mmol/L) 104 Carbon Dioxide (22 - 30 mmol/L) 20 L Anion Gap (5 - 16) 12 BUN (7 - 17 mg/dL) 24 H Creatinine (0.5 - 1.0 mg/dL) 1.1 H Estimated GFR (>60 ml/min) 48 L BUN/Creatinine Ratio (7 - 25 %) 21.8 Magnesium (1.6 - 2.3 mg/dL) 1.8 Coagulation PT (9.4 - 12.5 SEC) 19.9 H INR (0.90 - 1.19) 1.81 H APTT (25 - 37 SEC) 71 H 60 H Hematology CBC w Diff NO MAN DIFF REQ WBC (4.8 - 10.8 /CUMM) 9.9 RBC (4.20 - 5.40 /CUMM) 4.45 Hgb (12.0 - 16.0 G/DL) 13.0 Hct (37 - 47 %) 39.5 MCV (81.0 - 99.0 FL) 88.8 MCH (27.0 - 31.0 PG) 29.2 MCHC (33.0 - 37.0 G/DL) 32.9 L RDW (11.5 - 14.5 %) 17.4 H Plt Count (130 - 400 /CUMM) 77 L MPV (7.4 - 10.4 FL) 11.2 H Gran % (42.2 - 75.2 %) 73.3 Lymphocytes % (20.5 - 51.1 %) 14.8 L Monocytes % (1.7 - 9.3 %) 11.2 H Eosinophils % (0 - 5 %) 0.4 Basophils % (0.0 - 2.0 %) 0.3 Absolute Granulocytes (1.4 - 6.5 /CUMM) 7.3 H Absolute Lymphocytes (1.2 - 3.4 /CUMM) 1.5 Absolute Monocytes (0.10 - 0.60 /CUMM) 1.1 H Absolute Eosinophils (0.0 - 0.7 /CUMM) 0 Absolute Basophils (0.0 - 0.2 /CUMM) 0 10/04 10/04 1631 1310 Chemistry Free T4 Cancelled Coagulation APTT (25 - 37 SEC) 75 H Last 24 Hours of Sorin Results: Blood cultures October 02 positive for Staph aureus sensitive to Oxacillin Blood cultures October 03 positive for Staph aureus Urine culture October 03 negative Assessment/Plan ID Impression: Improved, with temperatures normal and white blood cell count also now normal, on Vancomycin, Day 2 of treatment for Staph aureus sepsis of unclear etiology. The most likely source appears to be a left lower extremity cellulitis though she had only minimal erythema and no tenderness. The significance of the callus on the plantar aspect of her left foot is unclear, with underlying osteomyelitis unlikely but, if able, another attempt at an MRI could be considered. Her Staph aureus is sensitive to Oxacillin; therefore her antibiotics can be adjusted. She did develop a rash on Ampicillin on her previous hospitalization, but she has tolerated cephalosporins. Suggestion: 1. Repeat blood cultures 2 today 2. Await echocardiogram 3. Elevation of the left leg 4. Could repeat attempt at another MRI of the left foot on October 08 5. Discontinue Vancomycin 6. Begin Cefazolin 2 g IV every [address] Campos will be covering over the weekend
--- NOTE | 2017-10-05 13:54 | PN- Cardiology ---
Subjective Subjective: Patient does note some more shortness of breath with no chest pain or palpitations. Objective Vital Signs and I&Os Vital Signs Date Time Temp Pulse Resp B/P B/P Pulse O2 O2 Flow FiO2 Mean Ox Delivery Rate 10/05 0923 107 138/98 10/05 0800 Room Air 10/05 0653 98.8 83 22 128/64 92 Nasal Cannula 10/05 0000 Room Air 10/04 2252 99.5 119 24 136/90 93 Nasal Cannula 10/04 1730 97.9 122 24 148/94 92 Nasal Cannula 10/04 1713 Room Air 10/04 1440 98.5 109 20 132/70 93 Room Air Intake & Output 10/05 1600 10/05 0800 10/05 0000 10/04 1600 10/04 0800 10/04 0000 Intake Total 1155.06 537.6 Output Total 250 200 Balance 1155.06 287.6 -200 Intake, IV 1035.06 297.6 Intake, Oral 120 240 Output, Urine 250 200 Patient 382 lb 378 lb Weight Weight Bed scale Standing Scale Measurement Method Physical Exam: General: no apparent distress. Alert. Obese. Eyes: No obvious scleral icterus. HEENT: No jugular venous distention or abnormal jugular venous pulsations. Cardiovascular: Normal intensity S1/S2. Irregular tachycardia Respiratory: No rales or rhonchi Abdomen: no guarding or rebound tenderness. Musculoskeletal: No clubbing or cyanosis noted; 1-2+ bilateral lower extremity edema Skin: Lower extremity erythema/stasis changes noted Neurologic: No gross focal deficits noted. Current Medications: Current Medications Sig/Aldo Start time Last Medication Dose Route Stop Time Status Admin Heparin Sodium 25,000 UNIT Q24H 10/04 0600 AC 10/05 (Porcine) IV 0533 Sodium Chloride 500 ML Levothyroxine Sodium 0.125 MG DAILY AC 10/04 0700 AC 10/05 PO 0532 Magnesium Oxide 400 MG ONE ONE 10/05 1115 DC 10/05 PO 10/05 1116 1158 Metoprolol Tartrate 75 MG BID 10/03 2230 AC 10/05 PO 0926 Sodium Chloride 1,000 ML Q13H 10/03 2200 DC 10/04 IV 10/04 2359 1554 Vancomycin HCl 1,000 MG Q12 10/03 2300 AC 10/05 Dextrose/Water 250 ML IV 0926 Results Last 48 Hrs of Labs/Mics: Laboratory Tests 10/05/17 1234: ESR Westergren Pending 10/05/17 0905: APTT 71 H 10/05/17 0630: Anion Gap 12, Estimated GFR 48 L, BUN/Creatinine Ratio 21.8, Magnesium 1.8, PT 19.9 H, INR 1.81 H, CBC w Diff NO MAN DIFF REQ, RBC 4.45, MCV 88.8, MCH 29.2, MCHC 32.9 L, RDW 17.4 H, MPV 11.2 H, Gran % 73.3, Lymphocytes % 14.8 L, Monocytes % 11.2 H, Eosinophils % 0.4, Basophils % 0.3, Absolute Granulocytes 7.3 H, Absolute Lymphocytes 1.5, Absolute Monocytes 1.1 H, Absolute Eosinophils 0, Absolute Basophils 0 10/05/17 0129: APTT 60 H 10/04/17 1631: Free T4 Cancelled 10/04/17 1310: APTT 75 H 10/04/17 0530: Anion Gap 10, Estimated GFR 37 L, BUN/Creatinine Ratio 19.3, Total Bilirubin 2.3 H, Free T4 1.19, APTT 53 H, CBC w Diff NO MAN DIFF REQ, RBC 4.58, MCV 89.3 , MCH 28.4, MCHC 31.8 L, RDW 17.2 H, MPV 10.9 H, Gran % 82.9 H, Lymphocytes % 7.7 L, Monocytes % 9.1, Eosinophils % 0.1, Basophils % 0.2, Absolute Granulocytes 11.2 H, Absolute Lymphocytes 1.0 L, Absolute Monocytes 1.2 H, Absolute Eosinophils 0, Absolute Basophils 0 10/04/17 0204: Troponin I 0.42 *H 10/04/17 0204: Lactic Acid 1.8 10/03/17 2200: Lactic Acid 1.9 10/03/172021: Urine Color YEL, Urine Clarity CLEAR, Urine pH 5.5, Ur Specific [place] >= 1.030 , Urine Protein 100 H, Urine Ketones NEG, Urine Nitrite NEG, Urine Bilirubin NEG, Urine Urobilinogen 1.0, Ur Leukocyte Esterase TRACE H, Ur Microscopic SEDIMENT EXAMINED, Urine RBC 1-3, Urine WBC 10-15 H, Ur Epithelial Cells MOD H , Urine Bacteria MOD H, Hyaline Casts 1-3 H, Urine Mucus FEW, Urine Hemoglobin NEG, Urine Glucose NEG 10/03/171954: Troponin I 0.54 *H 10/03/17 1744: Lactic Acid 2.7 H 10/03/17 1420: Anion Gap 13, Estimated GFR 34 L, BUN/Creatinine Ratio 16.7, Glucose 138 H, Hemoglobin A1c 5.6, Lactic Acid 2.8 H, Calcium 9.5, Total Bilirubin 2.7 H, AST 36, ALT 19, Alkaline Phosphatase 73, Troponin I 0.46 *H, Total Protein 7.7, Albumin 3.5, Globulin 4.2, Albumin/Globulin Ratio 0.8 L, TSH 7.780 H, PT 24.1 H, INR 2.19 H, APTT 35, CBC w Diff MAN DIFF ORDERED, RBC 4.80, MCV 88.0, MCH 28.8, MCHC 32.8 L, RDW 17.0 H, MPV 10.9 H, Gran % 90.0 H, Lymphocytes % 4.2 L, Monocytes % 5.7, Eosinophils % 0, Basophils % 0.1, Absolute Granulocytes 16.8 H, Segmented Neutrophils 83 H, Band Neutrophils 5, Absolute Lymphocytes 0.8 L , Lymphocytes 3 L, Monocytes 9, Absolute Monocytes 1.1 H, Absolute Eosinophils 0, Absolute Basophils 0, Platelet Estimate DECREASED, Polychromasia 1+, Anisocytosis 1+ Microbiology 10/03 2021 URINE ROUT: Urine Culture - COMP Recent Imaging Studies: Telemetry tracings were personally reviewed and showed atrial fibrillation with mild tachycardia Assessment/Plan Assessment/Plan 1. Sepsis/bacteremia likely due to soft tissue infection 2. Persistent atrial fibrillation on Coumadin 3. Remote history of myocardial infarction 4. Elevated troponin likely due to sepsis/renal insufficiency 5. History of diastolic CHF 6. Chronic renal insufficiency 7. History of hypertension/hypothyroidism/thrombocytopenia 8. Chronic venous insufficiency 9. Postherpetic neuralgia 10. Morbid obesity The patient does have some more shortness of breath; would check a proBNP and obtain a repeat chest x-ray as she may have some volume overload. Echocardiogram is pending. She was unable to undergo the MRI earlier. Can increase the metoprolol to 100 mg p.o. twice daily as her blood pressure has remained stable. Feliciano Dasilva MD [facility] Continue telemetry? Yes
--- NOTE | 2017-10-05 15:09 | RADIOLOGY REPORT ---
EXAMINATION: XR PORTABLE CHEST CLINICAL INFORMATION: Shortness of breath. Crepitus in lungs. COMPARISON: Chest x-ray 10/02/2017 TECHNIQUE: Portable frontal view of the chest was obtained. 2:06 PM FINDINGS: Heart size is enlarged. There is calcifications of aorta. There is no pulmonary vascular congestion. No infiltrate or pleural effusion. IMPRESSION: Cardiomegaly. No acute abnormality of the chest.
[2017-10-06 06:30] VITALS: BP 136/88
--- NOTE | 2017-10-06 07:25 | PN- Housestaff ---
Subjective Follow-up For: Bacteremia and sepsis Type 2 [place] Tele-Events Since Last Visit: Patient remained in atrial flutter with heart rate [place] [address] with PVCs Subjective: Patient remained afebrile overnight. Seen and examined this morning. She denied any chest pain, palpitation, nausea, vomiting, chills, fever, abdominal pain dysuria. She has exertional dyspnea bedside baseline. Her left foot on the plantar side has tenderness. Patient doesn't want to take increased dose of beta sanya before talking to Dr. Krishnan. Review of Systems Constitutional: Denies: chills, fever. EENTM: Reports: no symptoms. Cardiovascular: Denies: chest pain, palpitations. Respiratory: Reports: sputum production. Denies: cough, short of breath. Gastrointestinal: Denies: abdominal pain, constipation, diarrhea, nausea. Genitourinary: Reports: no symptoms. Musculoskeletal: Reports: no symptoms. Neurological/Psychological: Reports: no symptoms. Objective Last 24 Hrs of Vital Signs/I&O Vital Signs Date Time Temp Pulse Resp B/P B/P Pulse O2 O2 Flow FiO2 Mean Ox Delivery Rate 10/05 2300 99.1 98 22 92 10/05 2158 104 134/82 10/05 0923 107 138/98 10/05 0800 Room Air Intake & Output 10/06 0800 10/06 0000 10/05 1600 Intake Total 1123.6 1902.4 Output Total 3400 Balance -2276.4 1902.4 Intake, IV 163.6 942.4 Intake, Oral 960 960 Output, Urine 3400 Physical Exam General Appearance: Alert, Oriented X3, Cooperative Skin Temp/Moisture Exam: Warm/Dry Sepsis Skin Exam (color): Normal for Ethnicity HEENT: Atraumatic, PERRLA, EOMI Neck: Supple Cardiovascular: Normal S1, Normal S2 Lungs: Clear to Auscultation Abdomen: Soft, No Tenderness Neurological: Normal Speech, Normal Tone Extremities: B/L pedal edema, left sole of the foot having tenderness Assessment/Plan Assessment: 77 YO obeses F with PMH of A.fib on coumadin, HTN, HLD, hypothyroidism, thrombocytopenia, chronic lymphadema of legs, CKD stage 2, recent history of shingles, necrotizing fasciitis, pulmonary hypertension, chronic diastolic CHF and macular degeneration came to ED with chief complaint of right-sided face, neck pain and fever for last couple of days. We are following the patient on telemetry floor to treat for following problems: Bacteremia with sepsis: -Two blood cultures are positive for staph aureus. -Repeat blood culture also positive for gram-positive cocci -Probably due to soft tissue infection, protitis of right side or due to left foot infection. -Urine culture is pending. -USG abdomen to rule out biliary obstruction -Continue cefazolin 2 g -x-ray left foot is negative and she is going for MRI of left foot today. -Doppler studies negative for DVT -Her creatinine level is close to her baseline. -We will follow ID recommendations Type 2 TX: -Probably due to sepsis -F/U Cardio recommendations -Echo is pending. H/O A.fib: -Hold warfarin and transition to heparin H/O CAD: -Continue metoprolol H/O diastolic CHF: -Continue her home meds. H/O hypothyroidism: -Continue levothyroxin -TSH H/O thrombocytopenia: -Avoid meds that decrease the number or function of platelets. -HIT pannel was ordered to rule out heparin induced thrombocytopenia. -Today her platelet count is 77 DVT prophylaxis: Mechanical and heparin Code status: Full code Problem List: 1. Bacteremia 2. Sepsis 3. Elevated troponin Pain Ratin Pain Location: left foot Pain Goal: Remain pain free Pain Plan: pain pathway Tomorrow's Labs & Rationales: bep/cbc
[2017-10-06 08:00] LABS: ABSOLUTE BASOPHIL COUNT 0 /CUMM (0.0-0.2); ABSOLUTE EOSINOPHIL COUNT 0.1 /CUMM (0.0-0.7); ABSOLUTE LYMPH COUNT 1.5 /CUMM (1.2-3.4); ABSOLUTE MONOCYTE COUNT 0.9 /CUMM (0.10-0.60); BASOPHIL % 0.4 % (0.0-2.0); EOSINOPHIL % 1.3 % (0-5); GRANULOCYTE % 66.2 % (42.2-75.2); HEMATOCRIT 39.2 % (37-47); MEAN CORPUSCULAR HGB 29.3 PG (27.0-31.0); MEAN CORPUSCULAR HGB CONC 32.8 G/DL (33.0-37.0); MEAN CORPUSCULAR VOLUME 89.4 FL (81.0-99.0); MEAN PLATELET VOLUME 11.6 FL (7.4-10.4); PLATELET COUNT 77 /CUMM (130-400); RBC DISTRIBUTION WIDTH 17.7 % (11.5-14.5); RED BLOOD CELL CT 4.38 /CUMM (4.20-5.40); WHITE BLOOD CELL COUNT 7.5 /CUMM (4.8-10.8)
--- NOTE | 2017-10-06 10:06 | PN- Infect Dx ---
Subjective Subjective: This patient is a 77-year-old white female with significant past medical history for morbid obesity, chronic venous insufficiency, congestive heart failure, renal insufficiency and shingles. The patient was admitted for positive blood cultures which grew MSSA. She is currently afebrile with a normal white blood cell count. The patient is laying in bed and feels well. She states that her breathing has gotten considerably better after urinating a gallon of fluid. Denies any systemic features of infection. Review of Systems Constitutional: Reports: no symptoms. EENTM: Reports: no symptoms. Cardiovascular: Reports: no symptoms. Respiratory: Reports: no symptoms. Gastrointestinal: Reports: no symptoms. Genitourinary: Reports: no symptoms. Musculoskeletal: Reports: no symptoms. Skin: Reports: see HPI. Objective Last 24 Hrs of Vital Signs/I&O Vital Signs Date Time Temp Pulse Resp B/P B/P Pulse O2 O2 Flow FiO2 Mean Ox Delivery Rate 10/06 0823 98.9 100 22 136/88 10/06 0630 98.9 100 22 136/88 93 10/06 0000 94 Room Air 10/05 2300 99.1 98 22 92 10/05 2158 104 134/82 Intake & Output 10/06 1600 10/06 0800 10/06 0000 Intake Total 360 1123.6 Output Total 3400 Balance 360 -2276.4 Intake, IV 163.6 Intake, Oral 360 960 Output, Urine 3400 Physical Exam General Appearance: well developed/nourished, no apparent distress, alert, awake Head: atraumatic, normal appearance Ears, Nose, Throat: normal pharynx Neck: normal inspection, supple, full range of motion Cardiovascular: regular rate/rhythm Respiratory: normal breath sounds, chest non-tender, no respiratory distress Abdomen: normal bowel sounds, soft, non-tender Extremities: minimal erythema of the left lower extremity Results Last 24 Hours of Lab Results: Laboratory Tests 10/06 10/05 10/05 0630 2100 1511 Chemistry Sodium (137 - 145 mmol/L) 136 L Potassium (3.5 - 5.1 mmol/L) 3.7 Chloride (98 - 107 mmol/L) 101 Carbon Dioxide (22 - 30 mmol/L) 25 Anion Gap (5 - 16) 10 BUN (7 - 17 mg/dL) 20 H Creatinine (0.5 - 1.0 mg/dL) 1.1 H Estimated GFR (>60 ml/min) 48 L BUN/Creatinine Ratio (7 - 25 %) 18.2 Coagulation APTT Cancelled Hematology CBC w Diff NO MAN DIFF REQ WBC (4.8 - 10.8 /CUMM) 7.5 RBC (4.20 - 5.40 /CUMM) 4.38 Hgb (12.0 - 16.0 G/DL) 12.8 Hct (37 - 47 %) 39.2 MCV (81.0 - 99.0 FL) 89.4 MCH (27.0 - 31.0 PG) 29.3 MCHC (33.0 - 37.0 G/DL) 32.8 L RDW (11.5 - 14.5 %) 17.7 H Plt Count (130 - 400 /CUMM) 77 L MPV (7.4 - 10.4 FL) 11.6 H Gran % (42.2 - 75.2 %) 66.2 Lymphocytes % (20.5 - 51.1 %) 20.3 L Monocytes % (1.7 - 9.3 %) 11.8 H Eosinophils % (0 - 5 %) 1.3 Basophils % (0.0 - 2.0 %) 0.4 Absolute Granulocytes (1.4 - 6.5 /CUMM) 5.0 Absolute Lymphocytes (1.2 - 3.4 /CUMM) 1.5 Absolute Monocytes (0.10 - 0.60 /CUMM) 0.9 H Absolute Eosinophils (0.0 - 0.7 /CUMM) 0.1 Absolute Basophils (0.0 - 0.2 /CUMM) 0 Immunology Heparin-induced Plt Ab Pending Heparin-PF4 AB OD Pending 10/05 10/05 1455 1234 Chemistry [id number] Pept (<125 pg/mL) 2020 H Hematology ESR Westergren (0 - 20 MM) 30 H Last 24 Hours of Sorin Results: Microbiology Date/Time Procedure - Status Source Growth 10/05 1600 Urine Culture - RES URINE ROUT 10/05 1505 Blood Culture - RECD BLOOD 10/05 1455 Blood Culture - RECD BLOOD Assessment/Plan ID Impression: 77-year-old white female with MSSA bacteremia without a clear source. She did have a recent bout of shingles and has a significant history of cellulitis. At this point we would need to rule out endocarditis and possible left lower extremity osteomyelitis. The patient appears to be doing well on cefazolin and remains afebrile with a normal white blood cell count. Suggestion: 1. Echo pending 2. MRI pending 3. Continue cefazolin 4. Follow blood cultures Call with questions [phone]
--- NOTE | 2017-10-06 14:44 | PN- Pulmonary ---
Subjective HPI/Critical Care Issues: Patient remained afebrile overnight. Seen and examined this morning. She denied any chest pain, palpitation, nausea, vomiting, chills, fever, abdominal pain dysuria. She has exertional dyspnea bedside baseline. Her left foot on the plantar side has tenderness. Review of Systems Constitutional: Denies: chills, fever. EENTM: Reports: no symptoms. Cardiovascular: Denies: chest pain, palpitations. Respiratory: Reports: sputum production. Denies: cough, short of breath. Gastrointestinal: Denies: abdominal pain, constipation, diarrhea, nausea. Genitourinary: Reports: no symptoms. Musculoskeletal: Reports: no symptoms. Neurological/Psychological: Reports: no symptoms. Objective Current Medications: Current Medications Sig/Aldo Start time Last Medication Dose Route Stop Time Status Admin Cefazolin Sodium 2 GM IQ8 10/05 1600 AC 10/06 N/A 1 UNIT IV 0818 Enoxaparin Sodium 100 MG DAILY@1800 10/05 1800 AC 10/05 SC 1822 Enoxaparin Sodium 80 MG DAILY@1800 10/05 1800 AC 10/05 SC 1821 Enoxaparin Sodium 180 MG DAILY 10/05 1430 DC SC Levothyroxine Sodium 0.125 MG DAILY AC 10/04 0700 AC 10/06 PO 0622 Metoprolol Tartrate 100 MG BID 10/05 2100 AC 10/06 PO 0823 Potassium Chloride 20 MEQ ONCE ONE 10/06 1200 DC 10/06 PO 10/06 1201 1303 Vital Signs & I&O Last 24 Hrs of Vitals and I&O: Vital Signs Date Time Temp Pulse Resp B/P B/P Pulse O2 O2 Flow FiO2 Mean Ox Delivery Rate 10/06 0823 98.9 100 22 136/88 10/06 0800 94 Room Air Room Air 10/06 0630 98.9 100 22 136/88 93 10/06 0000 94 Room Air 10/05 2300 99.1 98 22 92 10/05 2158 104 134/82 Intake & Output 10/06 1600 10/06 0800 10/06 0000 Intake Total 360 1123.6 Output Total 3400 Balance 360 -2276.4 Intake, IV 163.6 Intake, Oral 360 960 Output, Urine 3400 Laboratory Tests 10/06 10/05 10/05 0630 2100 1511 Chemistry Sodium (137 - 145 mmol/L) 136 L Potassium (3.5 - 5.1 mmol/L) 3.7 Chloride (98 - 107 mmol/L) 101 Carbon Dioxide (22 - 30 mmol/L) 25 Anion Gap (5 - 16) 10 BUN (7 - 17 mg/dL) 20 H Creatinine (0.5 - 1.0 mg/dL) 1.1 H Estimated GFR (>60 ml/min) 48 L BUN/Creatinine Ratio (7 - 25 %) 18.2 Magnesium (1.6 - 2.3 mg/dL) 1.6 Coagulation APTT Cancelled Hematology CBC w Diff NO MAN DIFF REQ WBC (4.8 - 10.8 /CUMM) 7.5 RBC (4.20 - 5.40 /CUMM) 4.38 Hgb (12.0 - 16.0 G/DL) 12.8 Hct (37 - 47 %) 39.2 MCV (81.0 - 99.0 FL) 89.4 MCH (27.0 - 31.0 PG) 29.3 MCHC (33.0 - 37.0 G/DL) 32.8 L RDW (11.5 - 14.5 %) 17.7 H Plt Count (130 - 400 /CUMM) 77 L MPV (7.4 - 10.4 FL) 11.6 H Gran % (42.2 - 75.2 %) 66.2 Lymphocytes % (20.5 - 51.1 %) 20.3 L Monocytes % (1.7 - 9.3 %) 11.8 H Eosinophils % (0 - 5 %) 1.3 Basophils % (0.0 - 2.0 %) 0.4 Absolute Granulocytes (1.4 - 6.5 /CUMM) 5.0 Absolute Lymphocytes (1.2 - 3.4 /CUMM) 1.5 Absolute Monocytes (0.10 - 0.60 /CUMM) 0.9 H Absolute Eosinophils (0.0 - 0.7 /CUMM) 0.1 Absolute Basophils (0.0 - 0.2 /CUMM) 0 Immunology Heparin-induced Plt Ab Pending Heparin-PF4 AB OD Pending 10/05 10/05 10/05 10/05 1455 1234 0905 0630 Chemistry Sodium (137 - 145 mmol/L) 136 L Potassium (3.5 - 5.1 mmol/L) 4.3 Chloride (98 - 107 mmol/L) 104 Carbon Dioxide (22 - 30 mmol/L) 20 L Anion Gap (5 - 16) 12 BUN (7 - 17 mg/dL) 24 H Creatinine (0.5 - 1.0 mg/dL) 1.1 H Estimated GFR (>60 ml/min) 48 L BUN/Creatinine Ratio (7 - 25 %) 21.8 Magnesium (1.6 - 2.3 mg/dL) 1.8 [id number] Pept (<125 pg/mL) 2020 H Coagulation PT (9.4 - 12.5 SEC) 19.9 H INR (0.90 - 1.19) 1.81 H APTT (25 - 37 SEC) 71 H Hematology CBC w Diff NO MAN DIFF REQ WBC (4.8 - 10.8 /CUMM) 9.9 RBC (4.20 - 5.40 /CUMM) 4.45 Hgb (12.0 - 16.0 G/DL) 13.0 Hct (37 - 47 %) 39.5 MCV (81.0 - 99.0 FL) 88.8 MCH (27.0 - 31.0 PG) 29.2 MCHC (33.0 - 37.0 G/DL) 32.9 L RDW (11.5 - 14.5 %) 17.4 H Plt Count (130 - 400 /CUMM) 77 L MPV (7.4 - 10.4 FL) 11.2 H Gran % (42.2 - 75.2 %) 73.3 Lymphocytes % (20.5 - 51.1 %) 14.8 L Monocytes % (1.7 - 9.3 %) 11.2 H Eosinophils % (0 - 5 %) 0.4 Basophils % (0.0 - 2.0 %) 0.3 Absolute Granulocytes (1.4 - 6.5 /CUMM) 7.3 H Absolute Lymphocytes (1.2 - 3.4 /CUMM) 1.5 Absolute Monocytes (0.10 - 0.60 /CUMM) 1.1 H Absolute Eosinophils (0.0 - 0.7 /CUMM) 0 Absolute Basophils (0.0 - 0.2 /CUMM) 0 ESR Westergren (0 - 20 MM) 30 H 10/05 10/04 0129 1631 Chemistry Free T4 Cancelled Coagulation APTT (25 - 37 SEC) 60 H Microbiology Date/Time Procedure - Status Source Growth 10/05 1600 Urine Culture - RES URINE ROUT 10/05 1505 Blood Culture - RES BLOOD GRAM POSITIVE COCCI 10/05 1455 Blood Culture - RES BLOOD GRAM POSITIVE COCCI 10/03 2021 Urine Culture - COMP URINE ROUT 10/03 181 Blood Culture - COMP BLOOD STAPH AUREUS 10/03 1744 Blood Culture - COMP BLOOD STAPH AUREUS Impression/Plan Impression/Plan Impression/Plan: General Appearance: well developed/nourished, no apparent distress, alert, awake Head: atraumatic, normal appearance Ears, Nose, Throat: normal pharynx Neck: normal inspection, supple, full range of motion Cardiovascular: regular rate/rhythm Respiratory: normal breath sounds, chest non-tender, no respiratory distress Abdomen: normal bowel sounds, soft, non-tender Extremities: minimal erythema of the left lower extremity This is a 77-year-old lady with history of morbid obesity, chronic lymphedema of the legs and abd wall, hypothyroidism, atrial fibrillation on anticoagulation with warfarin, chronic venous insufficiency, previous history of vein closure, previous history of significant necrotizing fasciitis with sepsis septic shock in 2013, left-sided soft tissue infection of the thigh leading to necrotizing fasciitis with a wound VAC with subsequent healing, morbid obesity, secondary pulmonary hypertension, previous postoperative respiratory failure, hyperlipidemia, previous clinical diabetes, chronic kidney disease stage II with previous acute renal insufficiency, recent [facility] with sepsis with septic shock and toxic shock due to cellulitis and lymphedema, chronic diastolic chf, now comes with * Fever with MSSA sepsis due to prob soft tissue infection of the foot vs endocarditis ID Following * Foot ulcer on the sole of the lt foot with mild tenderness rule out osteo - Could not do mri * Atrial fibrillation chronic on anticoag on warfarin/now with prob Type 2 [place] with dyspnea rule out mild chf * Chronic kidney disease stage II creat better * Hyperbilirubinemia related to sepsis, unlikely Biliary sepsis - however, pt did have biliary sludge ultrasound reviewed * Hypothyroidism on appropriate supplementation, will recheck tsh in 3 days * Mild chronic thrombocytopenia due to sepsis * Chronic anemia probably multifactorial * Chronic diastolic heart disease * Morbid obesity, with sig lymphedema and recurrent cellulitis * Remote MN now with type II NSTEMI now with elevated trop PLAN IV abx per id ECHO Cardio following Attempt to do MRI on 10/08 COnt lovenox Pt agreeable to lovenox Po mag 400 daily Po lasix 40 mg today Kcl 40 meq x 2 doses Will follow
[2017-10-06 16:14] VITALS: BP 130/84
[2017-10-06 22:13] VITALS: BP 140/84
[2017-10-07 07:40] VITALS: BP 128/69
--- NOTE | 2017-10-07 08:32 | PN- Housestaff ---
Subjective Follow-up For: Bacteremia and sepsis Type 2 [place] Tele-Events Since Last Visit: A flutter into her 90s-100s with PVCs Subjective: Patient was seen and examined at bedside. She was resting comfortably. She had no acute events overnight. She currently offers no complaints, she has no foot pain while at rest and denies any chest pain, shortness of breath, nausea vomiting, fever, chills. Review of Systems Constitutional: Denies: chills, fever. EENTM: Reports: no symptoms. Cardiovascular: Reports: no symptoms. Respiratory: Reports: no symptoms. Gastrointestinal: Reports: no symptoms. Genitourinary: Reports: no symptoms. Musculoskeletal: Reports: no symptoms. Skin: Reports: no symptoms. Neurological/Psychological: Reports: no symptoms. Objective Last 24 Hrs of Vital Signs/I&O Vital Signs Date Time Temp Pulse Resp B/P B/P Pulse O2 O2 Flow FiO2 Mean Ox Delivery Rate 10/07 0813 95 128/69 10/07 0740 98.5 95 20 128/69 99 10/07 0000 94 Room Air 10/06 2212 98.9 135 36 140/84 94 10/06 2201 112 142/80 10/06 1614 98.9 95 22 130/84 92 Intake & Output 10/07 1600 10/07 0800 10/07 0000 Intake Total Output Total 2200 425 Balance -2200 -425 Output, Urine 2200 425 Patient 382 lb Weight Physical Exam General Appearance: Alert, Oriented X3, Cooperative Skin Temp/Moisture Exam: Warm/Dry Cardiovascular: Regular Rate, Normal S1, Normal S2 Lungs: Clear to Auscultation, Normal Air Movement Abdomen: Normal Bowel Sounds, Soft, No Tenderness Neurological: Normal Speech, Normal Tone, Sensation Intact Extremities: BLE edema, small callus on the L plantar foot near the lateral aspect Current Medications: Current Medications Sig/Aldo Start time Last Medication Dose Route Stop Time Status Admin Cefazolin Sodium 2 GM IQ8 10/05 1600 AC 10/07 N/A 1 UNIT IV 0812 Docusate Sodium 100 MG DAILY 10/07 0900 AC PO Enoxaparin Sodium 100 MG DAILY@1800 10/05 1800 AC 10/06 SC 1726 Enoxaparin Sodium 80 MG DAILY@1800 10/05 1800 AC 10/06 SC 1726 Furosemide 40 MG ONCE ONE 10/06 2199 DC 10/06 PO 10/06 2200 2201 Levothyroxine Sodium 0.125 MG DAILY AC 10/04 0700 AC 10/07 PO 0701 Magnesium Oxide 400 MG ONE ONE 10/06 1830 DC 10/06 PO 10/06 183 1905 Metoprolol Tartrate 100 MG BID 10/05 2100 AC 10/07 PO 0813 Potassium Chloride 20 MEQ ONCE ONE 10/06 2115 DC 10/06 PO 10/07 2115 220 Potassium Chloride 20 MEQ ONCE ONE 10/06 1830 DC 10/06 PO 10/06 183 190 Potassium Chloride 20 MEQ ONCE ONE 10/06 1200 DC 10/06 PO 10/06 1201 1303 Senna 187 MG AT BEDTIME 10/07 2100 UNVr PO Last 24 Hrs of Lab/Sorin Results Last 24 Hrs of Labs/Mics: Laboratory Tests 10/07/17 0645: Anion Gap 11, Estimated GFR 48 L, BUN/Creatinine Ratio 15.5, Magnesium 1.6 Assessment/Plan Assessment: 77 YO obeses F with PMH of A.fib on coumadin, HTN, HLD, hypothyroidism, thrombocytopenia, chronic lymphadema of legs, CKD stage 2, recent history of shingles, necrotizing fasciitis, pulmonary hypertension, chronic diastolic CHF and macular degeneration came to ED with chief complaint of right-sided face, neck pain and fever for last couple of days. We are following the patient on telemetry floor to treat for following problems: Bacteremia with sepsis: -Two blood cultures are positive for staph aureus. -Repeat blood culture also positive for gram-positive cocci -Probably due to soft tissue infection, protitis of right side or due to left foot infection. -Urine culture is pending. -USG abdomen to rule out biliary obstruction -Continue cefazolin 2 g -x-ray left foot is negative and she is going for MRI of left foot today. -Doppler studies negative for DVT -Her creatinine level is close to her baseline. -We will follow ID recommendations -Follow-up MRI in AM Type 2 TN: -Probably due to sepsis -F/U Cardio recommendations -Echo is pending. Hypomagnesemia: -Repleted today -Follow-up tomorrow and replete as necessary H/O A.fib: -Hold warfarin and transition to heparin H/O CAD: -Continue metoprolol H/O diastolic CHF: -Continue her home meds. H/O hypothyroidism: -Continue levothyroxin -TSH H/O thrombocytopenia: -Avoid meds that decrease the number or function of platelets. -HIT pannel was ordered to rule out heparin induced thrombocytopenia. -Today her platelet count is 77 DVT prophylaxis: Mechanical and heparin Code status: Full code Problem List: 1. Bacteremia 2. Elevated troponin 3. Sepsis Pain Ratin Pain Location: none Pain Goal: Remain pain free Pain Plan: pain pathway Tomorrow's Labs & Rationales: cbc, bep, PT, Mg
--- NOTE | 2017-10-07 10:56 | PN- Infect Dx ---
Subjective Subjective: This patient is a very pleasant 77-year-old white female with multiple medical problems. The patient was admitted for positive blood cultures which grew MSSA. She is currently afebrile with a normal white blood cell count however her blood cultures are consistently positive. The patient is laying in bed and feels well. No issues overnight. Denies any systemic features of infection. Review of Systems Constitutional: Reports: no symptoms. 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 Cardiovascular: Reports: no symptoms. Respiratory: Reports: no symptoms. Gastrointestinal: Reports: no symptoms. Genitourinary: Reports: no symptoms. Musculoskeletal: Reports: no symptoms. Skin: Reports: see HPI. Neurological/Psychological: Reports: no symptoms. Objective Last 24 Hrs of Vital Signs/I&O Vital Signs Date Time Temp Pulse Resp B/P B/P Pulse O2 O2 Flow FiO2 Mean Ox Delivery Rate 10/07 0813 95 128/69 10/07 0740 98.5 95 20 128/69 99 10/07 0000 94 Room Air 10/06 2213 98.9 135 36 140/84 94 10/06 2201 112 142/80 10/06 1614 98.9 95 22 130/84 92 Intake & Output 10/07 1600 10/07 0800 10/07 0000 Intake Total Output Total 2200 425 Balance -2200 -425 Output, Urine 2200 425 Patient 382 lb Weight Physical Exam General Appearance: well developed/nourished, no apparent distress, alert, awake , comfortable Head: atraumatic, normal appearance Ears, Nose, Throat: normal pharynx Neck: normal inspection, supple, full range of motion Cardiovascular: regular rate/rhythm Respiratory: normal breath sounds, no respiratory distress Abdomen: normal bowel sounds, soft, non-tender Skin: intact (left lower extremity shows min) Results Last 24 Hours of Lab Results: Laboratory Tests 10/07 0645 Chemistry Sodium (137 - 145 mmol/L) 138 Potassium (3.5 - 5.1 mmol/L) 4.3 Chloride (98 - 107 mmol/L) 101 Carbon Dioxide (22 - 30 mmol/L) 26 Anion Gap (5 - 16) 11 BUN (7 - 17 mg/dL) 17 Creatinine (0.5 - 1.0 mg/dL) 1.1 H Estimated GFR (>60 ml/min) 48 L BUN/Creatinine Ratio (7 - 25 %) 15.5 Magnesium (1.6 - 2.3 mg/dL) 1.6 Last 24 Hours of Sorin Results: 10/02 BCX - MSSA 10/03, 10/05 BCx - MSSA (4 of 4) Assessment/Plan ID Impression: 77-year-old white female with persistent MSSA bacteremia without a clear source likely skin. She did have a recent bout of shingles and has a significant history of cellulitis. At this point we would need to rule out endocarditis and possible left lower extremity osteomyelitis. The patient appears to be doing well on cefazolin and remains afebrile with a normal white blood cell count. Suggestion: 1. Transthoracic echo is negative will need a transesophageal echo slight 2. Repeat blood cultures 3. Continue cefazolin 4. Pending MRI tomorrow
--- NOTE | 2017-10-07 12:11 | PN- Pulmonary ---
Subjective HPI/Critical Care Issues: The patient is laying in bed and feels well. No issues overnight. Denies any systemic features of infection. Review of Systems Constitutional: Reports: no symptoms. 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 Cardiovascular: Reports: no symptoms. Respiratory: Reports: no symptoms. Gastrointestinal: Reports: no symptoms. Genitourinary: Reports: no symptoms. Musculoskeletal: Reports: no symptoms. Skin: Reports: see HPI. Neurological/Psychological: Reports: no symptoms. Objective Current Medications: Current Medications Sig/Aldo Start time Last Medication Dose Route Stop Time Status Admin Cefazolin Sodium 2 GM IQ8 10/05 1600 AC 10/07 N/A 1 UNIT IV 0812 Docusate Sodium 100 MG DAILY 10/07 0900 AC PO Enoxaparin Sodium 100 MG DAILY@1800 10/05 1800 AC 10/06 SC 1726 Enoxaparin Sodium 80 MG DAILY@1800 10/05 1800 AC 10/06 SC 1726 Furosemide 40 MG ONCE ONE 10/06 2200 DC 10/06 PO 10/06 2201 2201 Levothyroxine Sodium 0.125 MG DAILY AC 10/04 0700 AC 10/07 PO 0701 Magnesium Oxide 400 MG ONE ONE 10/06 1830 DC 10/06 PO 10/06 1831 1905 Metoprolol Tartrate 100 MG BID 10/05 2100 AC 10/07 PO 0813 Potassium Chloride 20 MEQ ONCE ONE 10/06 2115 DC 10/06 PO 10/06 211 2201 Potassium Chloride 20 MEQ ONCE ONE 10/06 1830 DC 10/06 PO 10/06 1831 1905 Senna 187 MG AT BEDTIME 10/07 2100 AC PO Vital Signs & I&O Last 24 Hrs of Vitals and I&O: Vital Signs Date Time Temp Pulse Resp B/P B/P Pulse O2 O2 Flow FiO2 Mean Ox Delivery Rate 10/07 0813 95 128/69 10/07 0740 98.5 95 20 128/69 99 10/07 0000 94 Room Air 10/06 2212 98.9 135 36 140/84 94 10/06 2201 112 142/80 10/06 1614 98.9 95 22 130/84 92 Intake & Output 10/07 1600 10/07 0800 10/07 0000 Intake Total Output Total 2200 425 Balance -2200 -425 Output, Urine 220 425 Patient 382 lb Weight Laboratory Tests 10/07 10/06 10/05 0645 0630 2100 Chemistry Sodium (137 - 145 mmol/L) 138 136 L Potassium (3.5 - 5.1 mmol/L) 4.3 3.7 Chloride (98 - 107 mmol/L) 101 101 Carbon Dioxide (22 - 30 mmol/L) 26 25 Anion Gap (5 - 16) 11 10 BUN (7 - 17 mg/dL) 17 20 H Creatinine (0.5 - 1.0 mg/dL) 1.1 H 1.1 H Estimated GFR (>60 ml/min) 48 L 48 L BUN/Creatinine Ratio (7 - 25 %) 15.5 18.2 Magnesium (1.6 - 2.3 mg/dL) 1.6 1.6 Coagulation APTT Cancelled Hematology CBC w Diff NO MAN DIFF REQ WBC (4.8 - 10.8 /CUMM) 7.5 RBC (4.20 - 5.40 /CUMM) 4.38 Hgb (12.0 - 16.0 G/DL) 12.8 Hct (37 - 47 %) 39.2 MCV (81.0 - 99.0 FL) 89.4 MCH (27.0 - 31.0 PG) 29.3 MCHC (33.0 - 37.0 G/DL) 32.8 L RDW (11.5 - 14.5 %) 17.7 H Plt Count (130 - 400 /CUMM) 77 L MPV (7.4 - 10.4 FL) 11.6 H Gran % (42.2 - 75.2 %) 66.2 Lymphocytes % (20.5 - 51.1 %) 20.3 L Monocytes % (1.7 - 9.3 %) 11.8 H Eosinophils % (0 - 5 %) 1.3 Basophils % (0.0 - 2.0 %) 0.4 Absolute Granulocytes (1.4 - 6.5 /CUMM) 5.0 Absolute Lymphocytes (1.2 - 3.4 /CUMM) 1.5 Absolute Monocytes (0.10 - 0.60 /CUMM) 0.9 H Absolute Eosinophils (0.0 - 0.7 /CUMM) 0.1 Absolute Basophils (0.0 - 0.2 /CUMM) 0 10/05 10/05 10/05 1511 1585 1234 Chemistry [id number] Pept (<125 pg/mL) 2020 H Hematology ESR Westergren (0 - 20 MM) 30 H Immunology Heparin-induced Plt Ab Pending Heparin-PF4 AB OD Pending Microbiology Date/Time Procedure - Status Source Growth 10/05 1600 Urine Culture - COMP URINE ROUT 10/05 1505 Blood Culture - RES BLOOD STAPH AUREUS 10/05 1455 Blood Culture - RES BLOOD STAPH AUREUS Impression/Plan Impression/Plan Impression/Plan: General Appearance: well developed/nourished, no apparent distress, alert, awake Head: atraumatic, normal appearance Ears, Nose, Throat: normal pharynx Neck: normal inspection, supple, full range of motion Cardiovascular: regular rate/rhythm Respiratory: normal breath sounds, chest non-tender, no respiratory distress Abdomen: normal bowel sounds, soft, non-tender Extremities: minimal erythema of the left lower extremity This is a 77-year-old lady with history of morbid obesity, chronic lymphedema of the legs and abd wall, hypothyroidism, atrial fibrillation on anticoagulation with warfarin, chronic venous insufficiency, previous history of vein closure, previous history of significant necrotizing fasciitis with sepsis septic shock in 2013, left-sided soft tissue infection of the thigh leading to necrotizing fasciitis with a wound VAC with subsequent healing, morbid obesity, secondary pulmonary hypertension, previous postoperative respiratory failure, hyperlipidemia, previous clinical diabetes, chronic kidney disease stage II with previous acute renal insufficiency, recent admission to [facility] with sepsis with septic shock and toxic shock due to cellulitis and lymphedema, chronic diastolic chf, now comes with * Fever with MSSA sepsis due to prob soft tissue infection of the foot vs endocarditis ID Following * Foot ulcer on the sole of the lt foot with mild tenderness rule out osteo - Could not do mri * Atrial fibrillation chronic on anticoag on warfarin/now with prob Type 2 [place] with dyspnea rule out mild chf * Chronic kidney disease stage II creat better * Hyperbilirubinemia related to sepsis, unlikely Biliary sepsis - however, pt did have biliary sludge ultrasound reviewed * Hypothyroidism on appropriate supplementation, will recheck tsh in 3 days * Mild chronic thrombocytopenia due to sepsis * Chronic anemia probably multifactorial * Chronic diastolic heart disease/rule out endocarditis * Morbid obesity, with sig lymphedema and recurrent cellulitis * Remote [place] now with type II NSTEMI now with elevated trop PLAN IV abx per id ECHO to be read today/ discussed with the oncall cardio Attempt to do MRI on 4/16 COnt lovenox Pt agreeable to lovenox and if no further intervention planned after the MRI tommorow can change restart warfarin Po mag 400 daily atc IV mag one dose 1 gram Po lasix [address] pt on 20 mg lasix in am YONNY seguraey after tommorow Kcl 20 meq x 1 dose today with lasix Will follow DR. Brand to cover from tommorow
[2017-10-07 14:53] VITALS: BP 130/78
[2017-10-07 23:00] VITALS: BP 112/78
[2017-10-08 07:15] VITALS: BP 116/92
--- NOTE | 2017-10-08 07:36 | PN- Housestaff ---
Subjective Follow-up For: Bacteremia and sepsis Type 2 [place] Tele-Events Since Last Visit: Patient remained in a flutter with heart rate 8697 with PVCs Subjective: No overnight events. Patient remained afebrile and appears and examined this morning she denied any chest pain, short of breath, nausea, vomiting, chills, fever, abdominal pain dysuria. Review of Systems Constitutional: Denies: chills, fever. EENTM: Reports: no symptoms. Cardiovascular: Denies: chest pain, palpitations. Respiratory: Denies: cough, short of breath, sputum production. Gastrointestinal: Denies: abdominal pain, constipation, diarrhea, nausea. Genitourinary: Reports: no symptoms. Musculoskeletal: Reports: no symptoms. Neurological/Psychological: Reports: no symptoms. Objective Last 24 Hrs of Vital Signs/I&O Vital Signs Date Time Temp Pulse Resp B/P B/P Pulse O2 O2 Flow FiO2 Mean Ox Delivery Rate 10/08 0736 78 116/92 10/08 0715 98.4 78 16 116/92 93 Room Air 10/07 2300 98.3 98 24 112/78 95 10/07 2034 92 150/90 10/07 1600 Room Air 10/07 1453 130/78 10/07 1433 99.4 92 18 96 Room Air Intake & Output 10/08 1600 10/08 0800 10/08 0000 Intake Total 400 900 Output Total 2900 1000 Balance -2500 -100 Intake, IV 150 Intake, Oral 250 900 Output, Urine 2900 1000 Patient 375 lb Weight Physical Exam General Appearance: Alert, Oriented X3, Cooperative Skin Temp/Moisture Exam: Warm/Dry Sepsis Skin Exam (color): Normal for Ethnicity HEENT: Atraumatic, PERRLA, EOMI Neck: Supple Cardiovascular: Normal S1, Normal S2 Lungs: Clear to Auscultation Abdomen: Soft, No Tenderness Neurological: Normal Speech, Strength at 5/5 X4 Ext, Normal Tone Extremities: B/L pedal edema Assessment/Plan Assessment: 77 YO obeses F with PMH of A.fib on coumadin, HTN, HLD, hypothyroidism, thrombocytopenia, chronic lymphadema of legs, CKD stage 2, recent history of shingles, necrotizing fasciitis, pulmonary hypertension, chronic diastolic CHF and macular degeneration came to ED with chief complaint of right-sided face, neck pain and fever for last couple of days. We are following the patient on telemetry floor to treat for following problems: Bacteremia with sepsis: -Two blood cultures are positive for staph aureus. -Repeat blood culture also positive for gram-positive cocci -Probably due to soft tissue infection, or due to left foot infection. -Urine culture is negative. -Continue cefazolin 2 g, day 4 -X-ray left foot is negative and she is going for MRI of left foot today. -We will follow ID recommendations Type 2 HI: -Probably due to sepsis -F/U Cardio recommendations -Echo is pending. Hypomagnesemia: -Repleted today -Follow-up tomorrow and replete as necessary H/O A.fib: -Hold warfarin and transition to heparin H/O CAD: -Continue metoprolol H/O diastolic CHF: -Continue her home meds. H/O hypothyroidism: -Continue levothyroxin -TSH H/O thrombocytopenia: -Avoid meds that decrease the number or function of platelets. -HIT pannel is pending. -Today her platelet count is 98 DVT prophylaxis: Mechanical and heparin Code status: Full code Problem List: 1. Bacteremia 2. Sepsis 3. Elevated troponin Pain Ratin Pain Location: NONE Pain Goal: Remain pain free Pain Plan: pain pathway Tomorrow's Labs & Rationales: bep
[2017-10-08 08:04] LABS: ABSOLUTE BASOPHIL COUNT 0 /CUMM (0.0-0.2); ABSOLUTE EOSINOPHIL COUNT 0.2 /CUMM (0.0-0.7); ABSOLUTE GRANULOCYTE CT 5.1 /CUMM (1.4-6.5); ABSOLUTE LYMPH COUNT 1.6 /CUMM (1.2-3.4); ABSOLUTE MONOCYTE COUNT 0.9 /CUMM (0.10-0.60); BASOPHIL % 0.6 % (0.0-2.0); EOSINOPHIL % 2.2 % (0-5); HEMATOCRIT 40.1 % (37-47); MEAN CORPUSCULAR HGB 29.5 PG (27.0-31.0); MEAN CORPUSCULAR HGB CONC 32.9 G/DL (33.0-37.0); MEAN CORPUSCULAR VOLUME 89.7 FL (81.0-99.0); MEAN PLATELET VOLUME 10.8 FL (7.4-10.4); PLATELET COUNT 98 /CUMM (130-400); RBC DISTRIBUTION WIDTH 17.7 % (11.5-14.5); RED BLOOD CELL CT 4.48 /CUMM (4.20-5.40); WHITE BLOOD CELL COUNT 7.8 /CUMM (4.8-10.8)
[2017-10-08 08:13] LABS: PT 14.7 SEC (9.4-12.5)
--- NOTE | 2017-10-08 09:59 | ECHOCARDIOGRAM REPORT ---
DEBRA DIAZ Age: 77 : 1940 Gender: F Exam Date: 10/07/2017 09:55 Exam Location: [address] Ht (in): 65 Wt (lb): 292 BSA: 2.54 BP: 128 / 69 Ordering Physician: Gilbert Petty MD Referring Physician: Josue Dasilva M.D. Technologist: Stephanie Parker [facility] Room Number: 182-01 Indications: MYOCARDIAL ISCHEMIA/ME Rhythm: Technical Quality: Technically difficult study FINDINGS Left Ventricle Left ventricular cavity size normal. Left ventricular wall thickness mildly increased. Mid to basal inferior akinesis. Left ventricular ejection fraction is estimated at 50 %. Right Ventricle Right ventricle not well visualized, grossly normal. Right Atrium Normal right atrial size. Left Atrium Mild left atrial dilatation. Mitral Valve Mild mitral annular calcification. No mitral stenosis. Moderate mitral regurgitation. Aortic Valve Diffuse thickening of the aortic valve cusps with reduced excursion. Mild aortic stenosis. Tricuspid Valve Tricuspid valve not well visualized, grossly normal. Mild tricuspid regurgitation. Unable to estimate the right ventricular systolic pressure. Pulmonic Valve Pulmonic valve not well visualized, grossly normal. Pericardium No pericardial effusion. Great Vessels Normal size aortic root. CONCLUSIONS Technically difficult study. Left ventricular cavity size normal. Left ventricular wall thickness mildly increased. Mid to basal inferior akinesis. Left ventricular ejection fraction is estimated at 50 %. Mild left atrial dilatation. Mild aortic stenosis. Moderate mitral regurgitation. Right ventricle not well visualized, grossly normal. Unable to estimate the right ventricular systolic pressure. Josue Dasilva M.D. (Electronically Signed) Final Date: 08 October 2017 09:58 MEASUREMENTS (Male / Female) Normal Values 2D ECHO LV Diastolic Diameter PLAX 4.7 cm 4.2 - 5.9 / 3.9 - 5.3 cm LV Systolic Diameter PLAX 3.3 cm 2.1 - 4.0 cm LV Fractional Shortening PLAX 29.8 % 25 - 46 % LV Ejection Fraction 2D Teich 56.9 % IVS Diastolic Thickness 1.5 cm LVPW Diastolic Thickness 1.4 cm LV Relative Wall Thickness 0.6 RV Internal Dim ED PLAX 3.6 cm 1.9 - 3.8 cm LVOT Diameter 2.2 cm Aortic Root Diameter 3.4 cm LA Systolic Diameter LX 3.6 cm 3.0 - 4.0 / 2.7 - 3.8 cm LA Volume 93.0 cm 18 - 58 / 22 - 52 cm Ascending Aorta Diameter 3.3 cm DOPPLER AV Peak Velocity 186.0 cm/s AV Peak Gradient 13.8 mmHg AV Mean Velocity 143.0 cm/s AV Mean Gradient 9.0 mmHg AV Velocity Time Integral 36.4 cm LVOT Peak Velocity 140.0 cm/s LVOT Peak Gradient 7.8 mmHg LVOT Mean Velocity 102.0 cm/s LVOT Mean Gradient 5.0 mmHg LVOT Velocity Time Integral 27.1 cm LVOT Stroke Volume 103.0 cm AV Area Cont Eq vti 2.8 cm AV Area Cont Eq pk 2.9 cm MV Peak Velocity 161.0 cm/s MV Peak Gradient 10.4 mmHg MV Mean Velocity 96.5 cm/s MV Mean Gradient 5.0 mmHg Mitral E Point Velocity 139.0 cm/s MV PHT Velocity 167.0 cm/s MV Deceleration [place] 859.0 cm/s MV Pressure Half Time 58.3 ms MV Area PHT 3.8 cm MV Deceleration Time 180.0 ms TR Peak Velocity 250.0 cm/s TR Peak Gradient 25.0 mmHg Right Atrial Pressure 5.0 mmHg Pulmonary Artery Systolic Pressu 30.0 mmHg Right Ventricular Systolic Press 30.0 mmHg LV E' Lateral Velocity 13.5 cm/s Mitral E to LV E' Lateral Ratio 10.3 LV E' Septal Velocity 8.2 cm/s Mitral E to LV E' Septal Ratio 17.0
[2017-10-08 10:41] LABS: HEPARIN INDUCED PLATELET AB NEGATIVE (NEGATIVE)
--- NOTE | 2017-10-08 11:08 | PN- Att Addend ---
Attending Addendum Attending Brief Note Patient sitting at edge of the bed, offers no complaints. Temp max 99 4, WBCs 7800, no new changes on physical with appreciate infectious diseases input and recommendations regarding her MRI today at my need echocardiograms etc. to figure out where the sepsis originated. Intake & Output 10/08 1600 10/08 0400 10/07 1600 10/07 0400 10/06 1600 10/06 0400 Intake Total 921 345 8180 660 1123.6 Output Total 2900 800 3700 425 1300 3400 Balance -2500 -500 -2500 -425 -640 -2276.4 Intake, IV 150 163.6 Intake, Oral 774 312 2653 660 960 Number 1 Bowel Movements Output, Urine 2900 800 3700 425 1300 3400 Patient 375 lb 382 lb Weight Current Medications Sig/Aldo Start time Last Medication Dose Route Stop Time Status Admin Cefazolin Sodium 2 GM IQ8 10/05 1600 AC 10/08 N/A 1 UNIT IV 0733 Docusate Sodium 100 MG DAILY 10/07 0900 AC 10/07 PO 1241 Enoxaparin Sodium 100 MG DAILY@1800 10/05 1800 AC 10/07 SC 1721 Enoxaparin Sodium 80 MG DAILY@1800 10/05 1800 AC 10/07 SC 1721 Furosemide 20 MG DAILY 10/08 0900 AC 10/08 PO 0736 Furosemide 40 MG ONE ONE 10/07 1899 DC 10/07 PO 10/07 Levothyroxine Sodium 0.125 MG DAILY AC 10/04 0700 AC 10/08 PO 0558 Magnesium Oxide 400 MG ONE ONE 10/08 0900 DC 10/08 PO 10/08 0901 0957 Magnesium Sulfate 1 GM ONCE ONE 10/07 1899 DC 10/07 Dextrose/Water 100 ML IV 10/07 Metoprolol Tartrate 100 MG BID 10/05 2100 AC 10/08 PO 0736 Potassium Chloride 20 MEQ ONCE ONE 10/07 1914 DC 10/07 PO 10/07 Senna 187 MG AT BEDTIME 10/07 2099 AC PO Warfarin Sodium 2.5 MG COUMADIN 1700 ONE 10/07 1914 CAN PO 10/08 1915 Laboratory Tests 10/08/17 0650: Anion Gap 12, Estimated GFR > 60, BUN/Creatinine Ratio 16.7, Magnesium 1.7, PT 14.7 H, INR 1.34 H, CBC w Diff NO MAN DIFF REQ, RBC 4.48, MCV 89.7, MCH 29.5, MCHC 32.9 L, RDW 17.7 H, MPV 10.8 H, Gran % 65.0, Lymphocytes % 20.2 L, Monocytes % 12.0 H, Eosinophils % 2.2, Basophils % 0.6, Absolute Granulocytes 5.1, Absolute Lymphocytes 1.6, Absolute Monocytes 0.9 H, Absolute Eosinophils 0.2, Absolute Basophils 0 10/07/17 0645: Anion Gap 11, Estimated GFR 48 L, BUN/Creatinine Ratio 15.5, Magnesium 1.6 10/06/17 0630: Anion Gap 10, Estimated GFR 48 L, BUN/Creatinine Ratio 18.2, Magnesium 1.6, CBC w Diff NO MAN DIFF REQ, RBC 4.38, MCV 89.4, MCH 29.3, MCHC 32.8 L, RDW 17.7 H, MPV 11.6 H, Gran % 66.2, Lymphocytes % 20.3 L, Monocytes % 11.8 H, Eosinophils % 1.3, Basophils % 0.4, Absolute Granulocytes 5.0, Absolute Lymphocytes 1.5, Absolute Monocytes 0.9 H, Absolute Eosinophils 0.1, Absolute Basophils 0 10/05/17 2100: APTT Cancelled 10/05/17 1511: Heparin-induced Plt Ab NEGATIVE, Heparin-PF4 AB OD 0.116 10/05/17 1455: [id number]-[id number] Pept 2020 H 10/05/17 1234: ESR Westergren 30 H Microbiology 10/07 2054 BLOOD: Blood Culture - RECD 10/07 1954 BLOOD: Blood Culture - RECD 10/05 1600 URINE ROUT: Urine Culture - COMP 10/05 150 BLOOD: Blood Culture - RES STAPH AUREUS 10/05 145 BLOOD: Blood Culture - RES STAPH AUREUS Microbiology 10/07 2054 BLOOD: Blood Culture - RECD 10/07 1954 BLOOD: Blood Culture - RECD 10/05 1600 URINE ROUT: Urine Culture - COMP 10/05 150 BLOOD: Blood Culture - RES STAPH AUREUS 10/05 1454 BLOOD: Blood Culture - RES STAPH AUREUS Vital Signs Date Time Temp Pulse Resp B/P B/P Pulse O2 O2 Flow FiO2 Mean Ox Delivery Rate 10/08 0736 78 116/92 10/08 0715 98.4 78 16 116/92 93 Room Air 10/07 2300 98.3 98 24 112/78 95 10/07 2034 92 150/90 10/07 1600 Room Air 10/07 1453 130/78 10/07 1433 99.4 92 18 96 Room Air
--- NOTE | 2017-10-08 12:42 | PN- Cardiology ---
Subjective Subjective: Feels well today. Denies recurrent shortness of breath. Objective Vital Signs and I&Os Vital Signs Date Time Temp Pulse Resp B/P B/P Pulse O2 O2 Flow FiO2 Mean Ox Delivery Rate 10/08 0736 78 116/92 10/08 0715 98.4 78 16 116/92 93 Room Air 10/07 2300 98.3 98 24 112/78 95 10/07 2034 92 150/90 10/07 1600 Room Air 10/07 1453 130/78 10/07 1433 99.4 92 18 96 Room Air Intake & Output 10/08 1600 10/08 0800 10/08 0000 10/07 1600 10/07 0800 10/07 0000 Intake Total 877 430 0762 Output Total 2900 800 1500 2200 425 Balance -2500 -500 -300 -2200 -425 Intake, IV 150 Intake, Oral 593 542 3757 Number 1 Bowel Movements Output, Urine 2900 800 1500 2200 425 Patient 375 lb 382 lb Weight Physical Exam: General: no apparent distress. Alert. Obese. Eyes: No obvious scleral icterus. HEENT: No jugular venous distention or abnormal jugular venous pulsations. Cardiovascular: Normal intensity S1/S2. Irregular Respiratory: No rales or rhonchi Abdomen: no guarding or rebound tenderness. Musculoskeletal: No clubbing or cyanosis noted; 1-2+ bilateral lower extremity edema Skin: Lower extremity erythema/stasis changes noted Neurologic: No gross focal deficits noted. Current Medications: Current Medications Sig/Aldo Start time Last Medication Dose Route Stop Time Status Admin Cefazolin Sodium 2 GM IQ8 10/05 1600 AC 10/08 N/A 1 UNIT IV 0733 Docusate Sodium 100 MG DAILY 10/07 09 AC 10/07 PO 1241 Enoxaparin Sodium 100 MG DAILY@1800 10/05 1800 AC 10/07 SC 1721 Enoxaparin Sodium 80 MG DAILY@1800 10/05 1800 AC 10/07 SC 1721 Furosemide 20 MG DAILY 10/08 09 AC 10/08 PO 0736 Furosemide 40 MG ONE ONE 10/07 190 DC 10/07 PO 10/07 Levothyroxine Sodium 0.125 MG DAILY AC 10/04 0700 AC 10/08 PO 0558 Magnesium Oxide 400 MG ONE ONE 10/08 09 DC 10/08 PO 10/08 0901 0957 Magnesium Sulfate 1 GM ONCE ONE 10/07 1899 DC 10/07 Dextrose/Water 100 ML IV 10/07 Metoprolol Tartrate 100 MG BID 10/05 2099 AC 10/08 PO 0736 Potassium Chloride 20 MEQ ONCE ONE 10/07 1914 DC 10/07 PO 10/07 Senna 187 MG AT BEDTIME 10/07 2099 AC PO Warfarin Sodium 2.5 MG COUMADIN 1700 ONE 10/07 1914 CAN PO 10/08 1915 Results Last 48 Hrs of Labs/Mics: Laboratory Tests 10/08/17 0650: Anion Gap 12, Estimated GFR > 60, BUN/Creatinine Ratio 16.7, Magnesium 1.7, PT 14.7 H, INR 1.34 H, CBC w Diff NO MAN DIFF REQ, RBC 4.48, MCV 89.7, MCH 29.5, MCHC 32.9 L, RDW 17.7 H, MPV 10.8 H, Gran % 65.0, Lymphocytes % 20.2 L, Monocytes % 12.0 H, Eosinophils % 2.2, Basophils % 0.6, Absolute Granulocytes 5.1, Absolute Lymphocytes 1.6, Absolute Monocytes 0.9 H, Absolute Eosinophils 0.2, Absolute Basophils 0 10/07/17 0645: Anion Gap 11, Estimated GFR 48 L, BUN/Creatinine Ratio 15.5, Magnesium 1.6 Recent Imaging Studies: Telemetry tracings were personally reviewed and showed atrial fibrillation with grossly controlled ventricular response rate Echo: Technically difficult study. Left ventricular cavity size normal. Left ventricular wall thickness mildly increased. Mid to basal inferior akinesis. Left ventricular ejection fraction is estimated at 50 %. Mild left atrial dilatation. Mild aortic stenosis. Moderate mitral regurgitation. Right ventricle not well visualized, grossly normal. Unable to estimate the right ventricular systolic pressure. Josue Dasilva M.D. (Electronically Signed) Final Date: 08 October 2017 09:58 Assessment/Plan Assessment/Plan 1. Sepsis/bacteremia likely due to soft tissue infection? 2. Persistent atrial fibrillation on Coumadin 3. Remote history of myocardial infarction 4. Elevated troponin likely due to sepsis/renal insufficiency 5. History of diastolic CHF 6. Chronic renal insufficiency 7. History of hypertension/hypothyroidism/thrombocytopenia 8. Chronic venous insufficiency 9. Postherpetic neuralgia 10. Morbid obesity 11. mild aortic stenosis The patient's shortness of breath has resolved and she is now on oral diuretic. Heart rate control has improved. Echocardiogram as above is grossly unchanged from prior echoes. Planned for repeat attempt at left foot MRI. I did discuss the possibility of OXANA with Dr. Angeles but I suspect there is a chance she would need intubation to undergo this procedure and unclear if it will significantly change her planned antibiotic course at this time. Will continue to discuss. Feliciano Dasilva MD [facility] Continue telemetry? No
[2017-10-08 14:01] VITALS: BP 130/60
--- NOTE | 2017-10-08 14:03 | PN- Infect Dx ---
Subjective Subjective: Afebrile. She feels much improved with resolution of her respiratory complaints with diuresis. Objective Last 24 Hrs of Vital Signs/I&O Vital Signs Date Time Temp Pulse Resp B/P B/P Pulse O2 O2 Flow FiO2 Mean Ox Delivery Rate 10/08 0736 78 116/92 10/08 0715 98.4 78 16 116/92 93 Room Air 10/07 2300 98.3 98 24 112/78 95 10/07 2034 92 150/90 10/07 1600 Room Air 10/07 1453 130/78 10/07 1433 99.4 92 18 96 Room Air Intake & Output 10/08 1600 10/08 0800 10/08 0000 Intake Total 400 900 Output Total 2900 1000 Balance -2500 -100 Intake, IV 150 Intake, Oral 250 900 Output, Urine 2900 1000 Patient 375 lb Weight Physical Exam Other Physical Findings: She appears comfortable in no acute distress Lungs are clear Heart regular rhythm with no murmur Abdomen is obese, soft, nontender with positive bowel sounds Extremities slightly decreased edema both lower extremities, with no erythema or tenderness Olivas catheter in place Results Last 24 Hours of Lab Results: Laboratory Tests 10/08 0650 Chemistry Sodium (137 - 145 mmol/L) 139 Potassium (3.5 - 5.1 mmol/L) 4.0 Chloride (98 - 107 mmol/L) 101 Carbon Dioxide (22 - 30 mmol/L) 26 Anion Gap (5 - 16) 12 BUN (7 - 17 mg/dL) 15 Creatinine (0.5 - 1.0 mg/dL) 0.9 Estimated GFR (>60 ml/min) > 60 BUN/Creatinine Ratio (7 - 25 %) 16.7 Magnesium (1.6 - 2.3 mg/dL) 1.7 Coagulation PT (9.4 - 12.5 SEC) 14.7 H INR (0.90 - 1.19) 1.34 H Hematology CBC w Diff NO MAN DIFF REQ WBC (4.8 - 10.8 /CUMM) 7.8 RBC (4.20 - 5.40 /CUMM) 4.48 Hgb (12.0 - 16.0 G/DL) 13.2 Hct (37 - 47 %) 40.1 MCV (81.0 - 99.0 FL) 89.7 MCH (27.0 - 31.0 PG) 29.5 MCHC (33.0 - 37.0 G/DL) 32.9 L RDW (11.5 - 14.5 %) 17.7 H Plt Count (130 - 400 /CUMM) 98 L MPV (7.4 - 10.4 FL) 10.8 H Gran % (42.2 - 75.2 %) 65.0 Lymphocytes % (20.5 - 51.1 %) 20.2 L Monocytes % (1.7 - 9.3 %) 12.0 H Eosinophils % (0 - 5 %) 2.2 Basophils % (0.0 - 2.0 %) 0.6 Absolute Granulocytes (1.4 - 6.5 /CUMM) 5.1 Absolute Lymphocytes (1.2 - 3.4 /CUMM) 1.6 Absolute Monocytes (0.10 - 0.60 /CUMM) 0.9 H Absolute Eosinophils (0.0 - 0.7 /CUMM) 0.2 Absolute Basophils (0.0 - 0.2 /CUMM) 0 Last 24 Hours of Sorin Results: Blood cultures October 05 positive for Staph aureus Blood cultures October 07 negative Recent Imaging Studies: Echocardiogram October 04 no evidence of vegetations Assessment/Plan ID Impression: Overall improved, with temperatures and white blood cell count remaining normal, on Cefazolin Day 5 of treatment for Staph aureus sepsis, most likely secondary to a left lower extremity cellulitis, with resolution of the erythema and decrease in the edema previously noted. The callus on the plantar aspect of her left foot is a possible source, though there is minimal inflammation noted at this time. The duration of therapy will depend on the MRI, for example if she is found to have underlying osteomyelitis, and the suspicion for endocarditis. Have discussed with Cardiology, who feels that a OXANA would be very difficult in this morbidly obese patient. Suggestion: 1. Await MRI of the left foot 2. Follow-up recent blood cultures 3. Remove Olivas catheter as soon as her urine output decreases 4. Continue Cefazolin-will discuss duration based on above
[2017-10-08 22:29] VITALS: BP 136/86
[2017-10-09 06:37] VITALS: BP 140/96
--- NOTE | 2017-10-09 07:19 | PN- Housestaff ---
Subjective Follow-up For: Sepsis and bacteremia lType 2 CA Tele-Events Since Last Visit: Patient remained in A.flutter with heart rate between 8088 with PVCs Subjective: No overnight events. Patient remained afebrile overnight. Seen and examined this morning. She is on room air maintaining saturation 93% at rest. Patient denied any chest pain, palpitation, chills, fever, nausea, vomiting, abdominal pain and dysuria. Patient has exertional shortness of breath that's her baseline. Patient couldn't get MRI left foot yesterday because she turned blue during exertion. Review of Systems Constitutional: Denies: chills, fever. EENTM: Reports: no symptoms. Cardiovascular: Denies: chest pain, palpitations. Respiratory: Reports: short of breath. Denies: cough, sputum production. Gastrointestinal: Denies: abdominal pain, constipation, diarrhea, nausea. Genitourinary: Reports: no symptoms. Musculoskeletal: Reports: no symptoms. Neurological/Psychological: Reports: no symptoms. Objective Last 24 Hrs of Vital Signs/I&O Vital Signs Date Time Temp Pulse Resp B/P B/P Pulse O2 O2 Flow FiO2 Mean Ox Delivery Rate 10/09 0637 98.4 95 20 140/96 93 Room Air 10/08 2229 98.9 113 24 136/86 95 10/08 2209 102 136/86 10/08 1600 Room Air 10/08 1401 99.0 90 18 130/60 94 Room Air Intake & Output 10/09 1600 10/09 0800 10/09 0000 Intake Total Output Total 850 1800 Balance -850 -1800 Output, Urine 850 1800 Patient 369 lb Weight Physical Exam General Appearance: Alert, Oriented X3, Cooperative Skin: No Rashes Skin Temp/Moisture Exam: Warm/Dry Sepsis Skin Exam (color): Normal for Ethnicity HEENT: Atraumatic, PERRLA, EOMI Neck: Supple Cardiovascular: Normal S1, Normal S2 Lungs: Clear to Auscultation Abdomen: Soft, No Tenderness Neurological: Normal Speech, Strength at 5/5 X4 Ext, Normal Tone Extremities: B/L pedal edema Assessment/Plan Assessment: 77 YO obeses F with PMH of A.fib on coumadin, HTN, HLD, hypothyroidism, thrombocytopenia, chronic lymphadema of legs, CKD stage 2, recent history of shingles, necrotizing fasciitis, pulmonary hypertension, chronic diastolic CHF and macular degeneration came to ED with chief complaint of right-sided face, neck pain and fever for last couple of days. We are following the patient on telemetry floor to treat for following problems: Bacteremia with sepsis: -Blood cultures positive with staph aureus -Follow-up with repeat blood culture after start of antibiotics. -Probably due to soft tissue infection, or due to left foot infection. -Urine culture is negative. -Continue cefazolin 2 g, day 5 -X-ray left foot is negative and she is going for bone scan for osteomyelitis. -Patient may need PICC line for antibiotics. -We will follow ID recommendations Type 2 CA: -Probably due to sepsis -F/U Cardio recommendations -Echo showed ejection fraction 50% with mid to basal inferior akinesia. Hypomagnesemia: -was repleted. -F/U magnesium levels. H/O A.fib: -Hold warfarin and transition to lovenox H/O CAD: -Continue metoprolol H/O diastolic CHF: -Continue her home meds. H/O hypothyroidism: -Continue levothyroxin -TSH 7.780 H/O thrombocytopenia: -Avoid meds that decrease the number or function of platelets. -HIT pannel is negative for heparin-induced thrombocytopenia. DVT prophylaxis: Mechanical and heparin Code status: Full code Problem List: 1. Bacteremia 2. Elevated troponin 3. Sepsis Pain Ratin Pain Location: none Pain Goal: Remain pain free Pain Plan: pain pathway Tomorrow's Labs & Rationales: bep/cbc
[2017-10-09 08:04] LABS: ABSOLUTE BASOPHIL COUNT 0 /CUMM (0.0-0.2); ABSOLUTE EOSINOPHIL COUNT 0.2 /CUMM (0.0-0.7); ABSOLUTE LYMPH COUNT 1.6 /CUMM (1.2-3.4); ABSOLUTE MONOCYTE COUNT 0.8 /CUMM (0.10-0.60); BASOPHIL % 0.5 % (0.0-2.0); EOSINOPHIL % 2.6 % (0-5); GRANULOCYTE % 65.8 % (42.2-75.2); HEMATOCRIT 39.6 % (37-47); MEAN CORPUSCULAR HGB 29.4 PG (27.0-31.0); MEAN CORPUSCULAR HGB CONC 32.6 G/DL (33.0-37.0); MEAN CORPUSCULAR VOLUME 90.1 FL (81.0-99.0); MEAN PLATELET VOLUME 10.7 FL (7.4-10.4); PLATELET COUNT 102 /CUMM (130-400); RBC DISTRIBUTION WIDTH 17.5 % (11.5-14.5); WHITE BLOOD CELL COUNT 7.6 /CUMM (4.8-10.8)
--- NOTE | 2017-10-09 10:40 | PN- Att Addend ---
Attending Addendum Attending Brief Note Covering attending note Patient in bed in no acute distress. Was unable to get MRI done [place] and cyanotic when she was laid down for it. Infectious disease aware of this Temp max is 99. No major changes on physical will continue workup and treatment as per infectious diseases. Intake & Output 10/09 1600 10/09 0400 10/08 1600 10/08 0400 10/07 1600 10/07 0400 Intake Total 1230 386 7247 Output Total 850 1800 4600 800 3700 425 Balance -850 -1800 -3550 -500 -2500 -425 Intake, IV 150 Intake, Oral 766 645 1821 Number 1 1 Bowel Movements Output, Urine 850 1800 4600 800 3700 425 Patient 369 lb 375 lb 375 lb 382 lb Weight Current Medications Sig/Aldo Start time Last Medication Dose Route Stop Time Status Admin Cefazolin Sodium 2 GM IQ8 10/05 1600 AC 10/09 N/A 1 UNIT IV 1003 Docusate Sodium 100 MG DAILY 10/07 0900 AC 10/07 PO 1241 Enoxaparin Sodium 100 MG DAILY@1800 10/05 1800 AC 10/08 SC 1751 Enoxaparin Sodium 80 MG DAILY@1800 10/05 1800 AC 10/08 SC 1751 Furosemide 20 MG DAILY 10/08 0900 AC 10/09 PO 0955 Levothyroxine Sodium 0.125 MG DAILY AC 10/04 0700 AC 10/09 PO 0655 Metoprolol Tartrate 100 MG BID 10/05 2100 AC 10/09 PO 1002 Potassium Chloride 40 MEQ ONCE ONE 10/09 0900 DC 10/09 PO 10/09 0901 0955 Senna 187 MG AT BEDTIME 10/07 2100 AC PO Laboratory Tests 10/09/17 0640: Anion Gap 9, Estimated GFR > 60, BUN/Creatinine Ratio 17.5, Magnesium 1.6, CBC w Diff NO MAN DIFF REQ, RBC 4.40, MCV 90.1, MCH 29.4, MCHC 32.6 L, RDW 17.5 H, MPV 10.7 H, Gran % 65.8, Lymphocytes % 20.5, Monocytes % 10.6 H, Eosinophils % 2.6, Basophils % 0.5, Absolute Granulocytes 5.0, Absolute Lymphocytes 1.6, Absolute Monocytes 0.8 H, Absolute Eosinophils 0.2, Absolute Basophils 0 10/08/17 0650: Anion Gap 12, Estimated GFR > 60, BUN/Creatinine Ratio 16.7, Magnesium 1.7, PT 14.7 H, INR 1.34 H, CBC w Diff NO MAN DIFF REQ, RBC 4.48, MCV 89.7, MCH 29.5, MCHC 32.9 L, RDW 17.7 H, MPV 10.8 H, Gran % 65.0, Lymphocytes % 20.2 L, Monocytes % 12.0 H, Eosinophils % 2.2, Basophils % 0.6, Absolute Granulocytes 5.1, Absolute Lymphocytes 1.6, Absolute Monocytes 0.9 H, Absolute Eosinophils 0.2, Absolute Basophils 0 10/07/17 0645: Anion Gap 11, Estimated GFR 48 L, BUN/Creatinine Ratio 15.5, Magnesium 1.6 Microbiology 10/07 2054 BLOOD: Blood Culture - RES 10/07 1954 BLOOD: Blood Culture - RES Microbiology 10/07 2054 BLOOD: Blood Culture - RES 10/07 1954 BLOOD: Blood Culture - RES Vital Signs Date Time Temp Pulse Resp B/P B/P Pulse O2 O2 Flow FiO2 Mean Ox Delivery Rate 10/09 1002 140/82 10/09 0637 98.4 95 20 140/96 93 Room Air 10/09 0000 94 Room Air 10/08 2229 98.9 113 24 136/86 95 10/08 2209 102 136/86 10/08 1600 Room Air 10/08 1401 99.0 90 18 130/60 94 Room Air
--- NOTE | 2017-10-09 10:42 | PN- Cardiology ---
Subjective Subjective: Patient feels well overall. She still notes edema but feels that it is improving Review of Systems: Eyes no blurred or double vision Ears no deafness or ringing Nose and throat no recurrent sinusitis Lungs per history of present illness Heart per history of present illness Abdomen no nausea vomiting Musculoskeletal occasional muscle and joint pains Psych no anxiety or depression Neuro without recurrent headache or seizures Endocrine no heat or cold intolerance Objective Vital Signs and I&Os Vital Signs Date Time Temp Pulse Resp B/P B/P Pulse O2 O2 Flow FiO2 Mean Ox Delivery Rate 10/09 1002 140/82 10/09 0637 98.4 95 20 140/96 93 Room Air 10/09 0000 94 Room Air 10/08 2229 98.9 113 24 136/86 95 10/08 2209 102 136/86 10/08 1600 Room Air 10/08 1401 99.0 90 18 130/60 94 Room Air Intake & Output 10/09 1600 10/09 0800 10/09 0000 10/08 1600 10/08 0800 10/08 0000 Intake Total 650 400 900 Output Total 850 1800 1700 2900 1000 Balance -850 -1800 -1050 -2500 -100 Intake, IV 150 Intake, Oral 650 250 900 Number 1 Bowel Movements Output, Urine 850 1800 1700 2900 1000 Patient 369 lb 375 lb 375 lb Weight Physical Exam: Patient is a well-developed well-nourished female appearing in no acute distress HEENT is unremarkable Neck is supple there is no JVD Lungs few scattered rhonchi Heart irregular rhythm S1 and S2 are normal no gallops or rubs 1/6 systolic ejection murmur at the right upper sternal border Abdomen bowel sounds positive Extremities 2-3+ edema Current Medications: Current Medications Sig/Aldo Start time Last Medication Dose Route Stop Time Status Admin Cefazolin Sodium 2 GM IQ8 10/05 1600 AC 10/09 N/A 1 UNIT IV 1003 Docusate Sodium 100 MG DAILY 10/07 09 AC 10/07 PO 1241 Enoxaparin Sodium 100 MG DAILY@1800 10/05 1800 AC 10/08 SC 1751 Enoxaparin Sodium 80 MG DAILY@1800 10/05 1800 AC 10/08 SC 1751 Furosemide 20 MG DAILY 10/08 0900 AC 10/09 PO 0955 Levothyroxine Sodium 0.125 MG DAILY AC 10/04 0700 AC 10/09 PO 0655 Metoprolol Tartrate 100 MG BID 10/05 2099 AC 10/09 PO 1002 Potassium Chloride 40 MEQ ONCE ONE 10/09 0900 DC 10/09 PO 10/09 0901 0955 Senna 187 MG AT BEDTIME 10/07 2099 AC PO Results Last 48 Hrs of Labs/Mics: Laboratory Tests 10/09/17 0640: Anion Gap 9, Estimated GFR > 60, BUN/Creatinine Ratio 17.5, Magnesium 1.6, CBC w Diff NO MAN DIFF REQ, RBC 4.40, MCV 90.1, MCH 29.4, MCHC 32.6 L, RDW 17.5 H, MPV 10.7 H, Gran % 65.8, Lymphocytes % 20.5, Monocytes % 10.6 H, Eosinophils % 2.6, Basophils % 0.5, Absolute Granulocytes 5.0, Absolute Lymphocytes 1.6, Absolute Monocytes 0.8 H, Absolute Eosinophils 0.2, Absolute Basophils 0 10/08/17 0650: Anion Gap 12, Estimated GFR > 60, BUN/Creatinine Ratio 16.7, Magnesium 1.7, PT 14.7 H, INR 1.34 H, CBC w Diff NO MAN DIFF REQ, RBC 4.48, MCV 89.7, MCH 29.5, MCHC 32.9 L, RDW 17.7 H, MPV 10.8 H, Gran % 65.0, Lymphocytes % 20.2 L, Monocytes % 12.0 H, Eosinophils % 2.2, Basophils % 0.6, Absolute Granulocytes 5.1, Absolute Lymphocytes 1.6, Absolute Monocytes 0.9 H, Absolute Eosinophils 0.2, Absolute Basophils 0 Telemetry personally reviewed atrial fibrillation with controlled ventricular response Assessment/Plan Assessment/Plan 1. Sepsis/bacteremia likely due to soft tissue infection? 2. Persistent atrial fibrillation on Coumadin 3. Remote history of myocardial infarction 4. Elevated troponin likely due to sepsis/renal insufficiency 5. History of diastolic CHF 6. Chronic renal insufficiency 7. History of hypertension/hypothyroidism/thrombocytopenia 8. Chronic venous insufficiency 9. Postherpetic neuralgia 10. Morbid obesity 11. Mild aortic stenosis Recommendations 1. Continue current medications 2. Discussed with Dr. Pink since patient is a high risk for OXANA and would most likely require intubation plan is to treat empirically for possible endocarditis Continue telemetry? Yes
--- NOTE | 2017-10-09 11:41 | PN- Infect Dx ---
Subjective Subjective: Afebrile without complaints. She was again unable to undergo the MRI yesterday because of the reported development of cyanosis. Objective Last 24 Hrs of Vital Signs/I&O Vital Signs Date Time Temp Pulse Resp B/P B/P Pulse O2 O2 Flow FiO2 Mean Ox Delivery Rate 10/09 1002 140/82 10/09 0637 98.4 95 20 140/96 93 Room Air 10/09 0000 94 Room Air 10/08 2229 98.9 113 24 136/86 95 10/08 2209 102 136/86 10/08 1600 Room Air 10/08 1401 99.0 90 18 130/60 94 Room Air Intake & Output 10/09 1600 10/09 0800 10/09 0000 Intake Total Output Total 850 1800 Balance -850 -1800 Output, Urine 850 1800 Patient 369 lb Weight Physical Exam Other Physical Findings: She appears comfortable in no acute distress Lungs are clear Heart regular rhythm with no murmur Extremities left foot plantar callus with no surrounding inflammation; resolved lower extremity erythema with decreased edema Olivas catheter remains in place Results Last 24 Hours of Lab Results: Laboratory Tests 10/09 0640 Chemistry Sodium (137 - 145 mmol/L) 139 Potassium (3.5 - 5.1 mmol/L) 3.6 Chloride (98 - 107 mmol/L) 103 Carbon Dioxide (22 - 30 mmol/L) 27 Anion Gap (5 - 16) 9 BUN (7 - 17 mg/dL) 14 Creatinine (0.5 - 1.0 mg/dL) 0.8 Estimated GFR (>60 ml/min) > 60 BUN/Creatinine Ratio (7 - 25 %) 17.5 Magnesium (1.6 - 2.3 mg/dL) 1.6 Hematology CBC w Diff NO MAN DIFF REQ WBC (4.8 - 10.8 /CUMM) 7.6 RBC (4.20 - 5.40 /CUMM) 4.40 Hgb (12.0 - 16.0 G/DL) 12.9 Hct (37 - 47 %) 39.6 MCV (81.0 - 99.0 FL) 90.1 MCH (27.0 - 31.0 PG) 29.4 MCHC (33.0 - 37.0 G/DL) 32.6 L RDW (11.5 - 14.5 %) 17.5 H Plt Count (130 - 400 /CUMM) 102 L MPV (7.4 - 10.4 FL) 10.7 H Gran % (42.2 - 75.2 %) 65.8 Lymphocytes % (20.5 - 51.1 %) 20.5 Monocytes % (1.7 - 9.3 %) 10.6 H Eosinophils % (0 - 5 %) 2.6 Basophils % (0.0 - 2.0 %) 0.5 Absolute Granulocytes (1.4 - 6.5 /CUMM) 5.0 Absolute Lymphocytes (1.2 - 3.4 /CUMM) 1.6 Absolute Monocytes (0.10 - 0.60 /CUMM) 0.8 H Absolute Eosinophils (0.0 - 0.7 /CUMM) 0.2 Absolute Basophils (0.0 - 0.2 /CUMM) 0 Last 24 Hours of Sorin Results: Blood cultures 2 October 07 remain negative Assessment/Plan ID Impression: Overall improved, with temperatures and white blood cell count remaining normal, on Cefazolin Day 6 of treatment for Staph aureus sepsis, most likely secondary to a left lower extremity cellulitis, with resolution of the erythema and decrease in the edema previously noted. The callus on the plantar aspect of her left foot is a possible source, though there is minimal inflammation noted at this time. Unfortunately she was unable to undergo an MRI, but a bone scan could be pursued. Have discussed OXANA with Cardiology, who feels that it would be very difficult in this morbidly obese patient; therefore may need to consider empiric treatment for endocarditis. She continues to have a significant amount of urine output secondary to diuresis and is very reluctant to have the Olivas catheter removed. Suggestion: 1. Would pursue bone scan 2. Would pursue placement of a PICC if her most recent blood cultures remain negative 3. Continue Cefazolin
[2017-10-09 15:02] VITALS: BP 132/70
--- NOTE | 2017-10-09 18:12 | NUCLEAR MEDICINE REPORT ---
EXAMINATION: NM BONE SCAN 3 PHASE CLINICAL INFORMATION: Erythema of sole of left foot towards the little toe, deep. Tenderness. COMPARISON: No previous bone scan is available for comparison. Radiographs of the left foot dated 10/04/2017 are available for comparison. TECHNIQUE: Initial rapid sequence images were obtained over the feet during the bolus injection of 58.5 mCi Tc-99m HDP. Static images of the distal lower extremities were then obtained 2.5 hours post injection. The patient discontinued the study before imaging could be completed in the lateral views of the feet were not obtained. FINDINGS: Initial rapid sequence images show a mild diffuse increase in flow to the left ankle and proximal left foot. This does not have a focal component. Blood pool images obtained immediately following the flow study show a mild diffuse increase in blood pool activity in the left foot compared to the right in addition there is soft tissue swelling in the proximal foot and left ankle. No discrete foci of more prominently increased blood pool activity are present. The delayed static images show poor contrast between the bones and soft tissues. There is a small focus of mildly increased activity present posteriorly in the left foot, probably at the insertion of the left Achilles tendon. This is difficult to localize because lateral views were not obtained due to the patient's inability to cooperate for further imaging. No additional foci of abnormal activity are present. In particular there are no foci of abnormal activity in the region of the fifth digit of the left foot. IMPRESSION: No strong evidence of osteomyelitis. Soft tissue swelling and mildly increased activity in the left ankle and proximal left foot, and associated increased flow in these regions are nonspecific but may be due to cellulitis. There are no abnormalities strongly suspicious for osteomyelitis. A focus of mildly increased activity on the delayed images in the posterior aspect of the left foot is probably due to an Achilles enthesopathy.
[2017-10-09 20:34] VITALS: BP 124/78
[2017-10-10 06:37] VITALS: BP 130/90
--- NOTE | 2017-10-10 07:02 | PN- Housestaff ---
Subjective Follow-up For: Sepsis and bacteremia lType 2 TN Tele-Events Since Last Visit: Patient remained in atrial flutter with heart rate [id number] Subjective: No overnight events. Patient remained afebrile by placing examined this morning. She denied any chest pain, palpitation, nausea, vomiting, abdominal pain and dysuria. Review of Systems Constitutional: Denies: chills, fever. EENTM: Reports: no symptoms. Cardiovascular: Denies: chest pain, palpitations. Respiratory: Reports: short of breath. Denies: cough, sputum production. Gastrointestinal: Denies: abdominal pain, constipation, diarrhea, nausea. Genitourinary: Reports: no symptoms. Musculoskeletal: Reports: no symptoms. Neurological/Psychological: Reports: no symptoms. Objective Last 24 Hrs of Vital Signs/I&O Vital Signs Date Time Temp Pulse Resp B/P B/P Pulse O2 O2 Flow FiO2 Mean Ox Delivery Rate 10/10 0637 98.7 92 20 130/90 95 Room Air 10/10 0000 94 Room Air 10/09 2155 112 130/82 10/09 2034 98.5 93 20 124/78 93 10/09 1541 Room Air Room Air 10/09 1535 Room Air Room Air 10/09 1502 98.1 99 20 132/70 93 Room Air 10/09 1002 140/82 Intake & Output 10/10 1600 10/10 0800 10/10 0000 Intake Total 370 480 Output Total 200 1200 Balance 170 -720 Intake, IV 170 Intake, Oral 200 480 Output, Urine 200 1200 Physical Exam General Appearance: Alert, Oriented X3, Cooperative Skin: No Rashes Skin Temp/Moisture Exam: Warm/Dry Sepsis Skin Exam (color): Normal for Ethnicity HEENT: Atraumatic, PERRLA, EOMI Neck: Supple Cardiovascular: Normal S1, Normal S2 Lungs: Clear to Auscultation Abdomen: Soft, No Tenderness Neurological: Normal Speech, Strength at 5/5 X4 Ext, Normal Tone Extremities: B/L PEDAL EDEMA Assessment/Plan Assessment: 77 YO obeses F with PMH of A.fib on coumadin, HTN, HLD, hypothyroidism, thrombocytopenia, chronic lymphadema of legs, CKD stage 2, recent history of shingles, necrotizing fasciitis, pulmonary hypertension, chronic diastolic CHF and macular degeneration came to ED with chief complaint of right-sided face, neck pain and fever for last couple of days. We are following the patient on telemetry floor to treat for following problems: Bacteremia with sepsis: -Blood cultures positive with staph aureus -Follow-up with repeat blood culture after start of antibiotics. -Probably due to soft tissue infection, or due to left foot infection. -Urine culture is negative. -Continue cefazolin 2 g, day 6 -Bone scan is negative for osteomyelitis. -Patient needs PICC line for 4-6 weeks of antibiotics. -We will follow ID recommendations Type 2 TN: -Probably due to sepsis. -Echo showed ejection fraction 50% with mid to basal inferior akinesia. Hypomagnesemia: -was repleted. -F/U magnesium levels. H/O A.fib: -Hold warfarin and transition to lovenox H/O CAD: -Continue metoprolol H/O diastolic CHF: -Continue her home meds. H/O hypothyroidism: -Continue levothyroxin -TSH 7.780 H/O thrombocytopenia: -Avoid meds that decrease the number or function of platelets. -HIT pannel is negative for heparin-induced thrombocytopenia. DVT prophylaxis: Mechanical and heparin Code status: Full code Problem List: 1. Sepsis 2. Bacteremia 3. Elevated troponin Pain Ratin Pain Location: NONE Pain Goal: Remain pain free Pain Plan: PAIN PATHWAY Tomorrow's Labs & Rationales: CBC/BEP
[2017-10-10 08:19] LABS: ABSOLUTE BASOPHIL COUNT 0 /CUMM (0.0-0.2); ABSOLUTE EOSINOPHIL COUNT 0.2 /CUMM (0.0-0.7); ABSOLUTE GRANULOCYTE CT 5.1 /CUMM (1.4-6.5); ABSOLUTE LYMPH COUNT 1.4 /CUMM (1.2-3.4); BASOPHIL % 0.4 % (0.0-2.0); EOSINOPHIL % 2.7 % (0-5); GRANULOCYTE % 65.7 % (42.2-75.2); HEMATOCRIT 41.3 % (37-47); MEAN CORPUSCULAR HGB 29.3 PG (27.0-31.0); MEAN CORPUSCULAR HGB CONC 32.7 G/DL (33.0-37.0); MEAN CORPUSCULAR VOLUME 89.6 FL (81.0-99.0); MEAN PLATELET VOLUME 10.6 FL (7.4-10.4); PLATELET COUNT 110 /CUMM (130-400); RBC DISTRIBUTION WIDTH 17.2 % (11.5-14.5); RED BLOOD CELL CT 4.61 /CUMM (4.20-5.40); WHITE BLOOD CELL COUNT 7.7 /CUMM (4.8-10.8)
--- NOTE | 2017-10-10 10:25 | PN- Att Addend ---
Attending Addendum Attending Brief Note Patient comfortable in bed Vital signs are stable no fever. No new changes on physical. Appreciate infectious diseases input and recommendations. On scan did not show any strong evidence for osteomyelitis. Blood cultures from October 07 are negative so far. Will follow IDs recommendations. Intake & Output 10/10 1600 10/10 0400 10/09 1600 10/09 0400 10/08 1600 10/08 0400 Intake Total 322 408 0860 900 Output Total 200 1200 1750 1800 4600 1000 Balance 170 -720 -1750 -1800 -3550 -100 Intake, IV 170 150 Intake, Oral 200 480 900 900 Number 1 Bowel Movements Output, Urine 200 1200 1750 1800 4600 1000 Patient 369 lb 375 lb 375 lb Weight Current Medications Sig/Aldo Start time Last Medication Dose Route Stop Time Status Admin Cefazolin Sodium 2 GM IQ8 10/05 1600 AC 10/10 N/A 1 UNIT IV 0824 Docusate Sodium 100 MG DAILY 10/07 0900 AC 10/07 PO 1241 Enoxaparin Sodium 100 MG DAILY@1800 10/05 1800 AC 10/09 SC 2156 Enoxaparin Sodium 80 MG DAILY@1800 10/05 1800 AC 10/09 SC 2155 Furosemide 20 MG DAILY 10/08 0900 AC 10/10 PO 0926 Levothyroxine Sodium 0.125 MG DAILY AC 10/04 0700 AC 10/10 PO 0636 Magnesium Sulfate 1 GM ONCE ONE 10/09 2214 DC 10/09 Dextrose/Water 100 ML IV 10/10 213 2217 Magnesium Sulfate 1 GM .STK-MED ONE 10/10 2207 DC IM 10/09 220 Metoprolol Tartrate 100 MG BID 10/05 2100 AC 10/10 PO 0926 Senna 187 MG AT BEDTIME 10/07 2100 AC PO Laboratory Tests 10/10/17 0628: Anion Gap 9, Estimated GFR > 60, BUN/Creatinine Ratio 13.3, CBC w Diff NO MAN DIFF REQ, RBC 4.61, MCV 89.6, MCH 29.3, MCHC 32.7 L, RDW 17.2 H, MPV 10.6 H, Gran % 65.7, Lymphocytes % 18.3 L, Monocytes % 12.9 H, Eosinophils % 2.7, Basophils % 0.4, Absolute Granulocytes 5.1, Absolute Lymphocytes 1.4, Absolute Monocytes 1.0 H, Absolute Eosinophils 0.2, Absolute Basophils 0 10/09/17 0640: Anion Gap 9, Estimated GFR > 60, BUN/Creatinine Ratio 17.5, Magnesium 1.6, CBC w Diff NO MAN DIFF REQ, RBC 4.40, MCV 90.1, MCH 29.4, MCHC 32.6 L, RDW 17.5 H, MPV 10.7 H, Gran % 65.8, Lymphocytes % 20.5, Monocytes % 10.6 H, Eosinophils % 2.6, Basophils % 0.5, Absolute Granulocytes 5.0, Absolute Lymphocytes 1.6, Absolute Monocytes 0.8 H, Absolute Eosinophils 0.2, Absolute Basophils 0 10/08/17 0650: Anion Gap 12, Estimated GFR > 60, BUN/Creatinine Ratio 16.7, Magnesium 1.7, PT 14.7 H, INR 1.34 H, CBC w Diff NO MAN DIFF REQ, RBC 4.48, MCV 89.7, MCH 29.5, MCHC 32.9 L, RDW 17.7 H, MPV 10.8 H, Gran % 65.0, Lymphocytes % 20.2 L, Monocytes % 12.0 H, Eosinophils % 2.2, Basophils % 0.6, Absolute Granulocytes 5.1, Absolute Lymphocytes 1.6, Absolute Monocytes 0.9 H, Absolute Eosinophils 0.2, Absolute Basophils 0 Microbiology 10/07 2054 BLOOD: Blood Culture - RES 10/07 1954 BLOOD: Blood Culture - RES Vital Signs Date Time Temp Pulse Resp B/P B/P Pulse O2 O2 Flow FiO2 Mean Ox Delivery Rate 10/10 0926 92 130/90 10/10 0637 98.7 92 20 130/90 95 Room Air 10/10 0000 94 Room Air 10/09 2155 112 130/82 10/09 2034 98.5 93 20 124/78 93 10/09 1541 Room Air Room Air 10/09 1535 Room Air Room Air 10/09 1502 98.1 99 20 132/70 93 Room Air
--- NOTE | 2017-10-10 10:50 | PN- Cardiology ---
Subjective Subjective: Patient is sitting up in bed and resting comfortably. Objective Vital Signs and I&Os Vital Signs Date Time Temp Pulse Resp B/P B/P Pulse O2 O2 Flow FiO2 Mean Ox Delivery Rate 10/10 0926 92 130/90 10/10 0637 98.7 92 20 130/90 95 Room Air 10/10 0000 94 Room Air 10/09 2155 112 130/82 10/09 2034 98.5 93 20 124/78 93 10/09 1541 Room Air Room Air 10/09 1535 Room Air Room Air 10/09 1502 98.1 99 20 132/70 93 Room Air Intake & Output 10/10 1600 10/10 0800 10/10 0000 10/09 1600 10/09 0800 10/09 0000 Intake Total 370 480 Output Total 200 1200 860 365 5336 Balance 170 -720 -900 -850 -1800 Intake, IV 170 Intake, Oral 200 480 Output, Urine 200 1200 435 354 2762 Patient 369 lb Weight Physical Exam: General: no apparent distress. Alert. Obese. Eyes: No obvious scleral icterus. HEENT: No jugular venous distention or abnormal jugular venous pulsations. Cardiovascular: Normal intensity S1/S2. Irregular Respiratory: No rales or rhonchi Abdomen: no guarding or rebound tenderness. Musculoskeletal: No clubbing or cyanosis noted; 1-2+ bilateral lower extremity edema Skin: Lower extremity erythema/stasis changes noted Neurologic: No gross focal deficits noted. Current Medications: Current Medications Sig/Aldo Start time Last Medication Dose Route Stop Time Status Admin Cefazolin Sodium 2 GM IQ8 10/05 1600 AC 10/10 N/A 1 UNIT IV 0824 Docusate Sodium 100 MG DAILY 10/07 09 AC 10/07 PO 1241 Enoxaparin Sodium 100 MG DAILY@1800 10/05 1800 AC 10/09 SC 2156 Enoxaparin Sodium 80 MG DAILY@1800 10/05 1800 AC 10/09 SC 2155 Furosemide 20 MG DAILY 10/08 0900 AC 10/10 PO 0926 Levothyroxine Sodium 0.125 MG DAILY AC 10/04 0700 AC 10/10 PO 0636 Magnesium Sulfate 1 GM ONCE ONE 10/09 2214 DC 10/09 Dextrose/Water 100 ML IV 10/104 2217 Magnesium Sulfate 1 GM .STK-MED ONE 10/10 2207 DC IM 10/09 220 Metoprolol Tartrate 100 MG BID 10/05 2099 AC 10/10 PO 0926 Senna 187 MG AT BEDTIME 10/07 2099 AC PO Results Last 48 Hrs of Labs/Mics: Laboratory Tests 10/10/17 0628: Anion Gap 9, Estimated GFR > 60, BUN/Creatinine Ratio 13.3, CBC w Diff NO MAN DIFF REQ, RBC 4.61, MCV 89.6, MCH 29.3, MCHC 32.7 L, RDW 17.2 H, MPV 10.6 H, Gran % 65.7, Lymphocytes % 18.3 L, Monocytes % 12.9 H, Eosinophils % 2.7, Basophils % 0.4, Absolute Granulocytes 5.1, Absolute Lymphocytes 1.4, Absolute Monocytes 1.0 H, Absolute Eosinophils 0.2, Absolute Basophils 0 10/09/17 0640: Anion Gap 9, Estimated GFR > 60, BUN/Creatinine Ratio 17.5, Magnesium 1.6, CBC w Diff NO MAN DIFF REQ, RBC 4.40, MCV 90.1, MCH 29.4, MCHC 32.6 L, RDW 17.5 H, MPV 10.7 H, Gran % 65.8, Lymphocytes % 20.5, Monocytes % 10.6 H, Eosinophils % 2.6, Basophils % 0.5, Absolute Granulocytes 5.0, Absolute Lymphocytes 1.6, Absolute Monocytes 0.8 H, Absolute Eosinophils 0.2, Absolute Basophils 0 Recent Imaging Studies: Telemetry tracings were personally reviewed and showed atrial fibrillation with grossly controlled ventricular response rate Bone scan: No strong evidence of osteomyelitis. Soft tissue swelling and mildly increased activity in the left ankle and proximal left foot, and associated increased flow in these regions are nonspecific but may be due to cellulitis. There are no abnormalities strongly suspicious for osteomyelitis. A focus of mildly increased activity on the delayed images in the posterior aspect of the left foot is probably due to an Achilles enthesopathy. Assessment/Plan Assessment/Plan 1. Sepsis/bacteremia likely due to soft tissue infection? 2. Persistent atrial fibrillation on Coumadin 3. Remote history of myocardial infarction 4. Elevated troponin likely due to sepsis/renal insufficiency 5. History of diastolic CHF 6. Chronic renal insufficiency 7. History of hypertension/hypothyroidism/thrombocytopenia 8. Chronic venous insufficiency 9. Postherpetic neuralgia 10. Morbid obesity 11. Mild aortic stenosis Doing well and maintaining negative fluid balance on oral Lasix with a stable creatinine. Heart rate remains recently well controlled. Antibiotics per ID. She is receiving Lovenox with Coumadin on hold pending PICC line. Feliciano Dasilva MD [facility] Continue telemetry? No
[2017-10-10 15:06] VITALS: BP 130/80
--- NOTE | 2017-10-10 15:46 | PN- Infect Dx ---
Subjective Subjective: Afebrile without complaints Objective Last 24 Hrs of Vital Signs/I&O Vital Signs Date Time Temp Pulse Resp B/P B/P Pulse O2 O2 Flow FiO2 Mean Ox Delivery Rate 10/10 1506 98.9 98 20 130/80 95 Room Air 10/10 0926 92 130/90 10/10 0800 94 Room Air Room Air 10/10 0637 98.7 92 20 130/90 95 Room Air 10/10 0000 94 Room Air 10/09 2155 112 130/82 10/09 2034 98.5 93 20 124/78 93 Intake & Output 10/10 1600 10/10 0800 10/10 0000 Intake Total 550 370 480 Output Total 6833 800 7311 Balance -650 170 -720 Intake, IV 170 Intake, Oral 550 200 480 Output, Urine 7784 365 0532 Physical Exam Other Physical Findings: She appears comfortable in no acute distress Lungs are clear Heart regular rhythm with no murmur Extremities no further erythema, with decreased edema both lower extremities Olivas catheter remains in place Results Last 24 Hours of Lab Results: Laboratory Tests 10/11 627 Chemistry Sodium (137 - 145 mmol/L) 137 Potassium (3.5 - 5.1 mmol/L) 4.0 Chloride (98 - 107 mmol/L) 98 Carbon Dioxide (22 - 30 mmol/L) 30 Anion Gap (5 - 16) 9 BUN (7 - 17 mg/dL) 12 Creatinine (0.5 - 1.0 mg/dL) 0.9 Estimated GFR (>60 ml/min) > 60 BUN/Creatinine Ratio (7 - 25 %) 13.3 Hematology CBC w Diff NO MAN DIFF REQ WBC (4.8 - 10.8 /CUMM) 7.7 RBC (4.20 - 5.40 /CUMM) 4.61 Hgb (12.0 - 16.0 G/DL) 13.5 Hct (37 - 47 %) 41.3 MCV (81.0 - 99.0 FL) 89.6 MCH (27.0 - 31.0 PG) 29.3 MCHC (33.0 - 37.0 G/DL) 32.7 L RDW (11.5 - 14.5 %) 17.2 H Plt Count (130 - 400 /CUMM) 110 L MPV (7.4 - 10.4 FL) 10.6 H Gran % (42.2 - 75.2 %) 65.7 Lymphocytes % (20.5 - 51.1 %) 18.3 L Monocytes % (1.7 - 9.3 %) 12.9 H Eosinophils % (0 - 5 %) 2.7 Basophils % (0.0 - 2.0 %) 0.4 Absolute Granulocytes (1.4 - 6.5 /CUMM) 5.1 Absolute Lymphocytes (1.2 - 3.4 /CUMM) 1.4 Absolute Monocytes (0.10 - 0.60 /CUMM) 1.0 H Absolute Eosinophils (0.0 - 0.7 /CUMM) 0.2 Absolute Basophils (0.0 - 0.2 /CUMM) 0 Last 24 Hours of Sorin Results: Blood cultures 2 October 07 negative Recent Imaging Studies: Bone scan October 09 no evidence of osteomyelitis Assessment/Plan ID Impression: Stable, with temperatures and white blood cell count remaining normal, on Cefazolin Day 7 of treatment for Staph aureus sepsis, most likely secondary to a left lower extremity cellulitis, with resolution of the erythema and decrease in the edema previously noted. As a OXANA is felt to be too risky in this morbidly obese patient, will need to empirically treat her for possible endocarditis, though the suspicion is low. She continues to have a significant amount of urine output secondary to diuresis and remains reluctant to have the Olivas catheter removed. Suggestion: 1. Await placement of a PICC 2. Remove Olivas catheter upon discharge 3. Continue Cefazolin to complete a 6 week course (until November 14)
[2017-10-10 22:47] VITALS: BP 134/78
[2017-10-11] MEDS ORDERED: FUROSEMIDE20 M1 PO ×2 (06:48→13:06)
[2017-10-11] MEDS ORDERED: LOPRESSOR100 M1 PO (06:50)
[2017-10-11 07:19] VITALS: BP 132/80
--- NOTE | 2017-10-11 07:35 | PN- Housestaff ---
[facility] 10[facility]11[facility] 0735: Subjective Follow-up For: Sepsis and bacteremia(resolved) Type 2 [place] Tele-Events Since Last Visit: A flutter with heart rate between 89-96 with couple of PVCs Subjective: Patient remained afebrile. Seen and examined this morning. She denied any chest pain, nausea, vomiting, chills, fever, abdominal pain dysuria. She has exertional dyspnea that her baseline. Patient will get PICC line today. Review of Systems Constitutional: Denies: chills, fever. EENTM: Reports: no symptoms. Cardiovascular: Denies: chest pain, palpitations. Respiratory: Reports: short of breath. Denies: cough, sputum production. Gastrointestinal: Denies: abdominal pain, constipation, diarrhea, nausea. Genitourinary: Reports: no symptoms. Musculoskeletal: Reports: no symptoms. Neurological/Psychological: Reports: no symptoms. Objective Last 24 Hrs of Vital Signs/I&O Vital Signs Date Time Temp Pulse Resp B/P B/P Pulse O2 O2 Flow FiO2 Mean Ox Delivery Rate 10/11 0806 70 132/80 10/11 0719 98.3 70 20 132/80 92 Room Air 10/10 2247 98.8 97 20 134/78 95 Room Air 10/10 2147 106 134/78 10/10 1506 98.9 98 20 130/80 95 Room Air 10/10 0926 92 130/90 Intake & Output 10/11 1600 10/11 0800 10/11 0000 Intake Total 170 120 Output Total 800 1400 Balance -630 -1280 Intake, IV 50 Intake, Oral 120 120 Output, Urine 800 1400 Patient 359 lb Weight Weight Bed scale Measurement Method Physical Exam General Appearance: Alert, Oriented X3, Cooperative Skin: No Rashes Skin Temp/Moisture Exam: Warm/Dry Sepsis Skin Exam (color): Normal for Ethnicity HEENT: Atraumatic, PERRLA, EOMI Neck: Supple Cardiovascular: Normal S1, Normal S2 Lungs: Clear to Auscultation Abdomen: Soft, No Tenderness Neurological: Normal Speech, Strength at 5/5 X4 Ext, Normal Tone Extremities: b/l pedal edema Assessment/Plan Assessment: 77 YO obeses F with PMH of A.fib on coumadin, HTN, HLD, hypothyroidism, thrombocytopenia, chronic lymphadema of legs, CKD stage 2, recent history of shingles, necrotizing fasciitis, pulmonary hypertension, chronic diastolic CHF and macular degeneration came to ED with chief complaint of right-sided face, neck pain and fever for last couple of days. We are following the patient on telemetry floor for following problems: Bacteremia with sepsis:(resolved) -Blood cultures positive with staph aureus -Follow-up with repeat blood culture after start of antibiotics. -Probably due to soft tissue infection, or due to left foot infection. -Urine culture is negative. -Continue cefazolin 2 g, day 8 -Patient needs PICC line for 4-6 weeks of antibiotics. -We will follow ID recommendations Type 2 [place]: -Probably due to sepsis. -Echo showed ejection fraction 50% with mid to basal inferior akinesia. H/O A.fib: -We will bridge coumadin with lovenox. -coumadin 2.5mg H/O CAD: -Metoprolol dose was increased to 100mg bid. H/O diastolic CHF: -Continue her home meds. -po lasix 20mg daily. H/O hypothyroidism: -Continue levothyroxin -TSH 7.780 H/O thrombocytopenia: -Avoid meds that decrease the number or function of platelets. -HIT pannel is negative for heparin-induced thrombocytopenia. DVT prophylaxis: Mechanical and heparin Code status: Full code Problem List: 1. Bacteremia 2. Sepsis 3. Elevated troponin Pain Ratin Pain Location: none Pain Goal: Remain pain free Pain Plan: pain pathway Tomorrow's Labs & Rationales: bep/INR Eulogio CHAMBERS,[facility] 10/11/17 1125: Attending MD Review Statement Attending Statement Attending MD Statement: examined this patient, discuss w/resident/PA/CHEMICAL INSPECTOR, agreed w/resident/PA/CHEMICAL INSPECTOR, discussed with family, reviewed EMR data (avail), discussed with nursing, discussed with case mgmt, reviewed images, amended to note Attending Assessment/Plan: Seen and examined Agree with above General Appearance: well developed/nourished, no apparent distress, alert, awake Head: atraumatic, normal appearance Ears, Nose, Throat: normal pharynx Neck: normal inspection, supple, full range of motion Cardiovascular: regular rate/rhythm Respiratory: normal breath sounds, chest non-tender, no respiratory distress Abdomen: normal bowel sounds, soft, non-tender Extremities: minimal erythema of the left lower extremity This is a 77-year-old lady with history of morbid obesity, chronic lymphedema of the legs and abd wall, hypothyroidism, atrial fibrillation on anticoagulation with warfarin, chronic venous insufficiency, previous history of vein closure, previous history of significant necrotizing fasciitis with sepsis septic shock in 2013, left-sided soft tissue infection of the thigh leading to necrotizing fasciitis with a wound VAC with subsequent healing, morbid obesity, secondary pulmonary hypertension, previous postoperative respiratory failure, hyperlipidemia, previous clinical diabetes, chronic kidney disease stage II with previous acute renal insufficiency, previous admissions with sepsis with septic shock and toxic shock due to cellulitis and lymphedema, chronic diastolic chf, now comes with * MSSA sepsis due to prob soft tissue infection of the foot pt not a good candidate for colby and would need 6 weeks of antibiotics per ID * Improving Foot ulcer on the sole of the lt foot Bone scan noted * Atrial fibrillation chronic on anticoag on warfarin/now with prob Type 2 [place] with dyspnea rule wiht resolved chf * Chronic kidney disease stage II creat better * Hyperbilirubinemia related to sepsis, unlikely Biliary sepsis - however, pt did have biliary sludge ultrasound reviewed * Hypothyroidism on appropriate supplementation * Mild chronic thrombocytopenia due to sepsis improved * Chronic diastolic heart disease with recent chf due to ivf now better * Morbid obesity, with sig lymphedema and recurrent cellulitis * Remote [place] now with type II NSTEMI now better PLAN IV abx per id picc line done Resume warfarin COnt lovenox till the inr is 2 Replace lytes Po lasix 20 mg 3 times per week upon dc with kcl DC [place] =
[2017-10-11] MEDS ORDERED: CEFAZOLIN2 GM/10 ML IV (08:55)
--- NOTE | 2017-10-11 10:36 | PN- Cardiology ---
Subjective Subjective: Telemetry reviewed. Atrial fibrillation with rates between 80 and 100. Patient feels well. Denies any chest pains or unusual shortness of breath. Objective Vital Signs and I&Os Vital Signs Date Time Temp Pulse Resp B/P B/P Pulse O2 O2 Flow FiO2 Mean Ox Delivery Rate 10/11 08 70 132/80 10/11 0719 98.3 70 20 132/80 92 Room Air 10/10 2247 98.8 97 20 134/78 95 Room Air 10/10 2147 106 134/78 10/10 1506 98.9 98 20 130/80 95 Room Air Intake & Output 10/11 1600 10/11 0800 10/11 0000 10/10 1600 10/10 0800 10/10 0000 Intake Total 170 120 550 370 480 Output Total 800 1400 0387 417 6800 Balance -630 -1280 -650 170 -720 Intake, IV 50 170 Intake, Oral 120 120 550 200 480 Output, Urine 800 1400 5591 021 0555 Patient 359 lb Weight Weight Bed scale Measurement Method Physical Exam: On general exam patient comfortable Head normocephalic atraumatic Eyes sclera anicteric conjunctiva showed no pallor extraocular muscles were normal Neck no jugular vein distention no thyroid masses no palpable nodes Chest lungs were clear bilaterally Heart irregular rhythm with a ventricular rate around 96 Abdomen hugely protuberant, bowel sounds normal soft nontender Extremities chronic venous stasis and venous insufficiency. Neurological no gross motor or sensory deficits Current Medications: Current Medications Sig/Aldo Start time Last Medication Dose Route Stop Time Status Admin Cefazolin Sodium 2 GM IQ8 10/05 1600 AC 10/11 N/A 1 UNIT IV 0802 Docusate Sodium 100 MG DAILY 10/07 09 AC 10/11 PO 0810 Enoxaparin Sodium 100 MG DAILY@1800 10/05 1800 AC 10/10 SC 1754 Enoxaparin Sodium 80 MG DAILY@1800 10/05 1800 AC 10/10 SC 1758 Furosemide 20 MG DAILY 10/08 0900 AC 10/11 PO 0806 Levothyroxine Sodium 0.125 MG DAILY AC 10/04 0700 AC 10/11 PO 0536 Magnesium Oxide 400 MG 10/11 0900 DC 10/11 PO 10/11 0901 1017 Metoprolol Tartrate 100 MG BID 10/05 2100 AC 10/11 PO 0806 Potassium Chloride 20 MEQ 0910/11 0900 DC 10/11 PO 10/11 0901 1017 Senna 187 MG AT BEDTIME 10/07 2100 AC PO Results Last 48 Hrs of Labs/Mics: Laboratory Tests 10/11/17627: Anion Gap 9, Estimated GFR 54 L, BUN/Creatinine Ratio 12.0, Magnesium 1.8 10/10/17 06: Anion Gap 9, Estimated GFR > 60, BUN/Creatinine Ratio 13.3, CBC w Diff NO MAN DIFF REQ, RBC 4.61, MCV 89.6, MCH 29.3, MCHC 32.7 L, RDW 17.2 H, MPV 10.6 H, Gran % 65.7, Lymphocytes % 18.3 L, Monocytes % 12.9 H, Eosinophils % 2.7, Basophils % 0.4, Absolute Granulocytes 5.1, Absolute Lymphocytes 1.4, Absolute Monocytes 1.0 H, Absolute Eosinophils 0.2, Absolute Basophils 0 Assessment/Plan Assessment/Plan In summary this 77-year-old female has the following problems 1. Sepsis/bacteremia likely due to soft tissue infection? 2. Persistent atrial fibrillation on Coumadin 3. Remote history of myocardial infarction 4. Elevated troponin likely due to sepsis/renal insufficiency 5. History of diastolic CHF 6. Chronic renal insufficiency 7. History of hypertension/hypothyroidism/thrombocytopenia 8. Chronic venous insufficiency 9. Postherpetic neuralgia 10. Morbid obesity 11. Mild aortic stenosis Patient received a PICC line already. Warfarin is to be started today. Rates are fairly well-controlled with continue metoprolol at 100 mg twice a day. Warfarin to maintain an INR between 2 and 3. Continue telemetry? Yes
--- NOTE | 2017-10-11 11:03 | RADIOLOGY REPORT ---
EXAMINATION: XR PORTABLE CHEST CLINICAL INFORMATION: PICC placement COMPARISON: 10/05/2017 TECHNIQUE: Portable frontal view of the chest was obtained. FINDINGS: Right PICC terminates in the mid SVC. Persistent hypoinflation, not significantly changed. IMPRESSION: Right PICC terminates in the mid SVC.
[2017-10-11] MEDS ORDERED: LOVENOX80 MG/0.1 SC (11:09)
[2017-10-11] MEDS ORDERED: LOVENOX100 MG/1 M SC (11:09)
--- NOTE | 2017-10-11 11:15 | Patient Discharge Instructions ---
Discharge Instructions General Discharge Information You were seen/treated for: Sepsis due to MSSA bacteremia. Type II [place] Watch for these problems: Chest pain, palpitation, nausea, vomiting, fever, chills, redness and swelling of leg, shortness of breath. If you experience any of these symptoms please come to ED or call your primary care physician. Special Instructions: -Follow-up patient primary care physician in one week. -Follow-up with your real estate account executive in 1 week. -Follow-up with infectious disease in 1 week. -Please continue Lovenox 180 mg subcutaneous every day with Coumadin until the INR becomes between 23. -Check INR and dose Coumadin accordingly. -Continue antibiotics to complete a total 6 week course. Diet Recommended Diet: Heart Healthy Activity Full Activity/No Limits: Yes Acute Coronary Syndrome Inclusion Criteria At DC or during hospital stay patient has or had the following: ACS DIAGNOSIS No Discharge Core Measures Meds if any: Prescribed or Continued at Discharge Meds if any: NOT Prescribed or Continued at Discharge Congestive Heart Failure Inclusion Criteria At DC or during hospital stay patient has or had the following: CHF DIAGNOSIS No Discharge Core Measures Meds if any: Prescribed or Continued at Discharge Meds if any: NOT Prescribed or Continued at Discharge Cerebrovascular accident Inclusion Criteria At DC or during hospital stay patient has or had the following: CVA/TIA Diagnosis No Discharge Core Measures Meds if any: Prescribed or Continued at Discharge Meds if any: NOT Prescribed or Continued at Discharge Venous thromboembolism Inclusion Criteria VTE Diagnosis No VTE Type NONE VTE Confirmed by (Test) NONE Discharge Core Measures - Per Current guidelines, there needs to be overlap - treatment for the first 5 days of Warfarin therapy. - If discharged on Warfarin prior to 5 days of - overlap therapy, the patient will need to be - assessed for post discharge needs including - *Post discharge parental anticoagulation - *Warfarin and/or parental anticoagulation education - *Follow up date to check INR post discharge At least 5 days overlap therapy as Inpatient No Meds if any: Prescribed or Continued at Discharge Note: Overlap Therapy is Warfarin and Anticoagulant Meds if any: NOT Prescribed or Continued at Discharge
--- NOTE | 2017-10-11 11:31 | Discharge Summary ---
Visit Information Visit Dates Admission Date: 10/03/17 Discharge Date: 10/12/17 Hospital Course Course Attending Physician: Jason Krishnan MD Primary Care Physician: Jason Krishnan MD Hospital Course: 77 YO obeses F legally blind with PMH of [place] on coumadin, HTN, HLD, hypothyroidism, thrombocytopenia, chronic lymphadema of legs, CKD stage 2, recent history of shingles, necrotizing fasciitis, pulmonary hypertension, chronic diastolic CHF and macular degeneration came to ED with chief complaint of right-sided face, neck pain and fever for last couple of days. ED course: Vitals: Temperature 98.8, pulse 110, respiratory rate 20, blood pressure 95/63, oxygen saturation 97% on room air Labs: WBC count 18.7, hemoglobin 13.8, hematocrit 42.2, platelet count 88, sodium 138, potassium 4.6, BUN 25, creatinine 1.5, lactic acid 2.8, anion gap 13 , BUNs/creatinine ratio 16.7, glucose 138, calcium 9.5, total bilirubin 2.7, AST 36, ALT 19, troponin 0.46, INR 2.19 Blood cultures and urine culture were obtained in ED Bacteremia with sepsis: Patient presented with bacteremia and she was meeting the criteria of sepsis although source was unknown initially. Patient had MSSA bacteremia -Blood cultures positive with staph aureus -Follow-up with repeat blood culture after start of antibiotics. -Probably due to soft tissue infection, or due to left foot infection. -Urine culture is negative. -Continue cefazolin 2 g, day 9 -Patient needs PICC line for 4-6 weeks of antibiotics. -We will follow ID recommendations Type 2 [place]: -Probably due to sepsis. -Echo showed ejection fraction 50% with mid to basal inferior akinesia. H/O A.fib: -We will bridge coumadin with lovenox. -coumadin 2.5mg H/O CAD: -Metoprolol dose was increased to 100mg bid. H/O diastolic CHF: -Continue her home meds. -po lasix 20mg daily. H/O hypothyroidism: -Continue levothyroxin -TSH 7.780 H/O thrombocytopenia: -Avoid meds that decrease the number or function of platelets. -HIT pannel is negative for heparin-induced thrombocytopenia. -Her platelet count has improved. DVT prophylaxis: Mechanical and heparin Code status: Full code Allergies: Coded Allergies: Gadolinium-Containing Contrast Medi (CONTRAST DYE - UNKNOWN 10/05/17) Iodinated Contrast- Oral and IV Dye (CONTRAST DYE - UNKNOWN 10/05/17) Penicillins (RASH 10/02/17) Uncoded Allergies: CONTRAST DYE (UNKNOWN 10/02/17) Pertinent Lab Results: Neck CT scan on 10/03/2017: IMPRESSION: No acute change. No neck mass or abscess. No inflammation. Abdominal ultrasound on 10/04/2017: IMPRESSION: Extremely limited exam with nonvisualization of the pancreas, gallbladder, common bile duct, and poor diagnostic quality of the liver, right and left kidneys. Consider alternative means of imaging such as CT scan depending on clinical circumstances. Left foot x-ray on 10/04/2017: IMPRESSION: 1. Prominent soft tissue swelling overlying the ankle and especially the dorsum of the forefoot. No underlying fracture or dislocation or radiopaque foreign body. No subcutaneous emphysema. 2. No plain film evidence of osteomyelitis. 3. Prominent lucencies seen at the first MTP joint and the associated sesamoid bones, most likely on a degenerative basis. Close clinical correlation is requested. Venous Doppler study of 10/04/2017: IMPRESSION: Normal triplex scan without evidence of deep venous thrombosis involving the lower extremities. Echocardiogram on 10/04/2017: CONCLUSIONS Technically difficult study. Left ventricular cavity size normal. Left ventricular wall thickness mildly increased. Mid to basal inferior akinesis. Left ventricular ejection fraction is estimated at 50 %. Mild left atrial dilatation. Mild aortic stenosis. Moderate mitral regurgitation. Right ventricle not well visualized, grossly normal. Unable to estimate the right ventricular systolic pressure. Chest x-ray on 10/05/2017: IMPRESSION: Cardiomegaly. No acute abnormality of the chest. Bone scan of left foot on 10/09/2017: IMPRESSION: No strong evidence of osteomyelitis. Soft tissue swelling and mildly increased activity in the left ankle and proximal left foot, and associated increased flow in these regions are nonspecific but may be due to cellulitis. There are no abnormalities strongly suspicious for osteomyelitis. A focus of mildly increased activity on the delayed images in the posterior aspect of the left foot is probably due to an Achilles enthesopathy. Chest x-ray on 10/11/17: IMPRESSION: Right PICC terminates in the mid SVC. Disposition Summary Disposition Principal Diagnosis: Sepsis due to MSSA bacteremia. Type II [place] Additional Diagnosis: History of A. fib History of CAD History of diastolic CHF History of hypothyroidism History of thrombocytopenia Discharge Instructions General Discharge Information Code Status: Full Code Patient's Diet: Heart healthy diet Patient's Activity: Self limited Follow-Up Instructions/Appts: -Follow-up patient primary care physician in one week. -Follow-up with your medical educator in 1 week. -Follow-up with infectious disease in 1 week. -Please continue Lovenox 180 mg subcutaneous every day with Coumadin until the INR becomes between 23. -Check INR and dose Coumadin accordingly. -Continue antibiotics to complete a total 6 week course. Medications at Discharge Discharge Medications: Stop taking the following medications: Metoprolol Tartrate (Metoprolol Tartrate) 25 MG TABLET ORAL TWICE DAILY Qty = 180 Continue taking these medications: Warfarin Sodium (Coumadin) 2.5 MG TABLET 1 Tablet ORAL DAILY Comments: Last Taken: 10/11/17 Time: 1603 Levothyroxine Sodium (Synthroid) 125 MCG TABLET 0.125 Milligram ORAL DAILY BEFORE BREAKFAST Qty = 30 Instructions: . Comments: Last Taken: 10/12/17 Time:0628 Ferrous Sulfate (Ferrous Sulfate) 325 MG (65 MG IRON) TABLET 1 Tablet ORAL TWICE DAILY Comments: NOT GIVEN IN HOSPITAL Start taking the following new medications: Furosemide (Furosemide) 20 MG TABLET 1 Tablet ORAL SUNDAY, SUNDAY AND SUNDAY Qty = 30 No Refills Instructions: . Comments: Last Taken: 10/12/17 Time: 0804 Potassium Chloride (Klor-Con M20) 20 MEQ TAB.ER.PRT 1 Tablet ORAL SUNDAY, SUNDAY AND SUNDAY Qty = 30 No Refills Instructions: . Comments: Last Taken: 10/11/17 Metoprolol Tartrate (Lopressor) 100 MG TABLET 1 Tablet ORAL TWICE DAILY Qty = 30 No Refills Instructions: . Comments: Last Taken: 10/12/17 Time: 0802 Enoxaparin Sodium (Lovenox) 80 MG/0.8 ML SYRINGE 80 Milligram Inject into fatty tissue DAILY Qty = 5 No Refills Instructions: . Comments: Last Taken: 10/11/17 Time: 1820 Enoxaparin Sodium (Lovenox) 100 MG/ML SYRINGE 100 Milligram Inject into fatty tissue DAILY Qty = 5 No Refills Instructions: . Comments: Last Taken: 10/11/17 Time: 1820 Cefazolin Sodium in 0.9 % NaCl (Cefazolin 2 G/10 Ml-Ns Syringe) 2 GRAM/10 ML SYRINGE 2 Gram INTRAVEN EVERY 8 HOURS Qty = 30 No Refills Instructions: For total 6 weeks antibiotic course till November 14 through PICC line.. Comments: Last Taken: 10/12/17 Time: 0802 Warfarin Sodium (Coumadin) 2.5 MG TABLET 1 Tablet ORAL DAILY Qty = 2 No Refills Instructions: TAKE AN EXTRA TABLET (2.5 mg) FOR A TOTAL OF 5 MG DAILY ON 10/13 - 10/14
[2017-10-11 14:51] VITALS: BP 126/82
[2017-10-11 23:13] VITALS: BP 124/80
--- NOTE | 2017-10-12 07:26 | PN- Housestaff ---
[facility]25: Subjective Follow-up For: Sepsis and bacteremia(resolved) Type 2 [place] Tele-Events Since Last Visit: Patient remained in A. fib with heart rate between 6793 Subjective: No overnight events. Patient remained afebrile by placing examined this morning. She denied any chest pain, short of breath, nausea, vomiting, fever and dysuria. Review of Systems Constitutional: Denies: chills, fever. EENTM: Reports: no symptoms. Cardiovascular: Denies: chest pain, palpitations. Respiratory: Denies: cough, short of breath, sputum production. Gastrointestinal: Denies: abdominal pain, constipation, diarrhea, nausea. Genitourinary: Reports: no symptoms. Neurological/Psychological: Reports: no symptoms. Objective Last 24 Hrs of Vital Signs/I&O Vital Signs Date Time Temp Pulse Resp B/P B/P Pulse O2 O2 Flow FiO2 Mean Ox Delivery Rate 10/12 0730 98.1 95 20 110/80 95 Room Air 10/11 2313 98.2 97 16 124/80 94 Room Air 10/11 2220 103 120/84 10/11 1451 98.7 78 20 126/82 95 Room Air 10/11 0806 70 132/80 Intake & Output 10/12 0800 10/12 0000 10/11 1600 Intake Total 800 Output Total 1700 Balance -900 Intake, Oral 800 Output, Urine 1700 Patient 253 lb Weight Physical Exam General Appearance: Alert, Oriented X3, Cooperative Skin: No Rashes Skin Temp/Moisture Exam: Warm/Dry Sepsis Skin Exam (color): Normal for Ethnicity HEENT: Atraumatic, PERRLA, EOMI Neck: Supple Cardiovascular: Normal S1, Normal S2 Lungs: Clear to Auscultation Abdomen: Soft, No Tenderness Neurological: Normal Speech, Strength at 5/5 X4 Ext, Normal Tone Extremities: b/l PEDAL EDEMA Assessment/Plan Assessment: 77 YO obeses F legally blind with PMH of [place] on coumadin, HTN, HLD, hypothyroidism, thrombocytopenia, chronic lymphadema of legs, CKD stage 2, recent history of shingles, necrotizing fasciitis, pulmonary hypertension, chronic diastolic CHF and macular degeneration came to ED with chief complaint of right-sided face, neck pain and fever for last couple of days. We are following the patient on telemetry floor for following problems: Bacteremia with sepsis:(resolved) -Blood cultures positive with staph aureus -Follow-up with repeat blood culture after start of antibiotics. -Probably due to soft tissue infection, or due to left foot infection. -Urine culture is negative. -Continue cefazolin 2 g, day 9 -Patient needs PICC line for 4-6 weeks of antibiotics. -We will follow ID recommendations Type 2 [place]: -Probably due to sepsis. -Echo showed ejection fraction 50% with mid to basal inferior akinesia. H/O A.fib: -We will bridge coumadin with lovenox. -coumadin 2.5mg H/O CAD: -Metoprolol dose was increased to 100mg bid. H/O diastolic CHF: -Continue her home meds. -po lasix 20mg daily. H/O hypothyroidism: -Continue levothyroxin -TSH 7.780 H/O thrombocytopenia: -Avoid meds that decrease the number or function of platelets. -HIT pannel is negative for heparin-induced thrombocytopenia. -Her platelet count has improved. DVT prophylaxis: Mechanical and heparin Code status: Full code Problem List: 1. Bacteremia 2. Sepsis 3. Elevated troponin Pain Ratin Pain Location: none Pain Goal: Remain pain free Pain Plan: pain pathway Tomorrow's Labs & Rationales: INR Eulogio CHAMBERS,[facility] 10/12/17 0951: Attending MD Review Statement Attending Statement Attending MD Statement: examined this patient, discuss w/resident/PA/COMPUTER GAME PROGRAMMER, agreed w/resident/PA/COMPUTER GAME PROGRAMMER, discussed with family, reviewed EMR data (avail), discussed with nursing, discussed with case mgmt, reviewed images, amended to note Attending Assessment/Plan: Seen and examined CMR done Pt to go home today will follow in a week as out pt
[2017-10-12 07:30] VITALS: BP 110/80
[2017-10-12 08:04] VITALS: BP 110/80
[2017-10-12 08:15] LABS: PT 13.8 SEC (9.4-12.5)
[2017-10-12] MEDS ORDERED: KLOR-CON M2020 ME1 PO ×3 (08:24→09:44)
[2017-10-12] MEDS ORDERED: FUROSEMIDE20 M1 PO ×2 (08:31→09:44)
[2017-10-12] MEDS ORDERED: LOPRESSOR100 M1 PO (09:44)
[2017-10-12] MEDS ORDERED: LOVENOX80 MG/0.1 SC (09:44)
[2017-10-12] MEDS ORDERED: CEFAZOLIN2 GM/10 ML IV (09:44)
[2017-10-12] MEDS ORDERED: LOVENOX100 MG/1 M SC (09:44)
--- NOTE | 2017-10-12 12:04 | PN- Cardiology ---
Subjective Subjective: Offers no complaints today. Objective Vital Signs and I&Os Vital Signs Date Time Temp Pulse Resp B/P B/P Pulse O2 O2 Flow FiO2 Mean Ox Delivery Rate 10/12 0804 98.1 95 110/80 10/12 0730 98.1 95 20 110/80 95 Room Air 10/11 2313 98.2 97 16 124/80 94 Room Air 10/11 2220 103 120/84 10/11 1451 98.7 78 20 126/82 95 Room Air Intake & Output 10/12 1600 10/12 0800 10/12 0000 10/11 1600 10/11 0810/11 0000 Intake Total 200 480 800 170 120 Output Total 252 797 4515 800 1400 Balance -200 -175 480 -900 -630 -1280 Intake, IV 50 Intake, Oral 200 480 800 120 120 Output, Urine 095 491 5335 800 1400 Patient 253 lb 359 lb Weight Weight Bed scale Measurement Method Physical Exam: General: no apparent distress. Alert. Obese. Eyes: No obvious scleral icterus. HEENT: No jugular venous distention or abnormal jugular venous pulsations. Cardiovascular: Normal intensity S1/S2. Irregular Respiratory: No rales or rhonchi Abdomen: no guarding or rebound tenderness. Musculoskeletal: No clubbing or cyanosis noted; 1-2+ bilateral lower extremity edema Skin: Lower extremity erythema/stasis changes noted Neurologic: No gross focal deficits noted. Current Medications: Current Medications Sig/Aldo Start time Last Medication Dose Route Stop Time Status Admin Cefazolin Sodium 2 GM IQ8 10/05 1600 AC 10/12 N/A 1 UNIT IV 0802 Docusate Sodium 100 MG DAILY 10/07 09 AC 10/11 PO 0810 Enoxaparin Sodium 100 MG DAILY@1800 10/05 1800 AC 10/11 SC 1820 Enoxaparin Sodium 80 MG DAILY@1800 10/05 1800 AC 10/11 SC 1820 Furosemide 20 MG DAILY 10/08 0900 AC 10/12 PO 0804 Levothyroxine Sodium 0.125 MG DAILY AC 10/04 0700 AC 10/12 PO 0628 Metoprolol Tartrate 100 MG BID 10/05 2100 AC 10/12 PO 0804 Potassium Chloride 20 MEQ DAILY 10/12 0900 CAN PO Senna 187 MG AT BEDTIME 10/07 2099 AC PO Warfarin Sodium 5 MG COUMADIN 1700 ONE 10/12 1700 AC PO 10/12 1701 Warfarin Sodium 2.5 MG COUMADIN 1700 ONE 10/11 1700 DC 10/11 PO 10/11 1701 1603 Results Last 48 Hrs of Labs/Mics: Laboratory Tests 10/12/17 0650: Anion Gap 10, Estimated GFR > 60, BUN/Creatinine Ratio 14.4, PT 13.8 H, INR 1.26 H 10/11/17 0628: Anion Gap 9, Estimated GFR 54 L, BUN/Creatinine Ratio 12.0, Magnesium 1.8 Recent Imaging Studies: Telemetry tracings are personally reviewed and showed atrial fibrillation with controlled ventricular response rate Assessment/Plan Assessment/Plan 1. Sepsis/bacteremia likely due to soft tissue infection? 2. Persistent atrial fibrillation on Coumadin 3. Remote history of myocardial infarction 4. Elevated troponin likely due to sepsis/renal insufficiency 5. History of diastolic CHF 6. Chronic renal insufficiency 7. History of hypertension/hypothyroidism/thrombocytopenia 8. Chronic venous insufficiency 9. Postherpetic neuralgia 10. Morbid obesity 11. Mild aortic stenosis Doing well and remains hemodynamically stable with heart rate well controlled. Her Coumadin has been restarted. Antibiotic course per ID. Please call with any additional questions or concerns. Feliciano Dasilva MD [facility] Continue telemetry? No
--- NOTE | 2017-10-12 13:02 | PN- Infect Dx ---
Subjective Subjective: Afebrile without complaints Objective Last 24 Hrs of Vital Signs/I&O Vital Signs Date Time Temp Pulse Resp B/P B/P Pulse O2 O2 Flow FiO2 Mean Ox Delivery Rate 10/12 0804 98.1 95 110/80 10/12 0730 98.1 95 20 110/80 95 Room Air 10/11 2313 98.2 97 16 124/80 94 Room Air 10/11 2220 103 120/84 10/11 1451 98.7 78 20 126/82 95 Room Air Intake & Output 10/12 1600 10/12 0800 10/12 0000 Intake Total 200 480 Output Total 200 375 Balance -200 -175 480 Intake, Oral 200 480 Output, Urine 200 375 Patient 253 lb Weight Physical Exam Other Physical Findings: She appears comfortable in no acute distress Extremities no further erythema of the lower extremities, with decreased edema; PICC in the right upper extremity with no inflammation at the site Results Last 24 Hours of Lab Results: Laboratory Tests 10/12 0650 Chemistry Sodium (137 - 145 mmol/L) 140 Potassium (3.5 - 5.1 mmol/L) 4.3 Chloride (98 - 107 mmol/L) 99 Carbon Dioxide (22 - 30 mmol/L) 31 H Anion Gap (5 - 16) 10 BUN (7 - 17 mg/dL) 13 Creatinine (0.5 - 1.0 mg/dL) 0.9 Estimated GFR (>60 ml/min) > 60 BUN/Creatinine Ratio (7 - 25 %) 14.4 Coagulation PT (9.4 - 12.5 SEC) 13.8 H INR (0.90 - 1.19) 1.26 H Last 24 Hours of Sorin Results: Blood cultures 2 October 07 remain negative Assessment/Plan ID Impression: Stable, with temperatures and white blood cell count remaining normal, on Cefazolin Day 9 of treatment for Staph aureus sepsis, most likely secondary to a left lower extremity cellulitis. As a OXANA was felt to be too risky in this morbidly obese patient, she will need to be continued on empiric treatment for endocarditis, though the suspicion is low. Suggestion: 1. Continue Cefazolin to complete a 6 week course (until November 14)
[2017-10-12] MEDS ORDERED: COUMADIN2.5 M1 PO (13:49)
== END 2017-10-12 13:50 | disposition home health service (06) | DRG 871 ==
LOC: ERH 11:15 → 1NO 18:50 → ERHI 18:50 → ENRESERV 10-04 13:54 → 1NO 10-04 16:48 → ENTRNSPT 10-12 13:11 → EDTRNSPT 10-12 13:44 → EDTRNSPTSTS 10-12 13:47 → 1NO 10-12 13:50 → CMPTRNSPT 10-12 13:59
PROVIDERS: Internal Medicine; Internal Medicine Hematology & Oncology; Physician Assistant; Student in an Organized Health Care Education/Training Program
DX: A41.01 Sepsis due to Methicillin susceptible Staphylococcus aureus (principal); I21.A1 Myocardial infarction type 2; D69.6 Thrombocytopenia, unspecified; E66.01 Morbid (severe) obesity due to excess calories; I27.20 Pulmonary hypertension, unspecified; I13.0 Hypertensive heart and chronic kidney disease with heart failure and stage 1 through stage 4 chronic kidney disease, or unspecified chronic kidney disease; I50.32 Chronic diastolic (congestive) heart failure; L03.115 Cellulitis of right lower limb; Z68.44 Body mass index [BMI] 60.0-69.9, adult; B02.29 Other postherpetic nervous system involvement; L97.429 Non-pressure chronic ulcer of left heel and midfoot with unspecified severity; I48.2 Chronic atrial fibrillation; Z79.01 Long term (current) use of anticoagulants; E80.6 Other disorders of bilirubin metabolism; N18.2 Chronic kidney disease, stage 2 (mild); L01.00 Impetigo, unspecified; E78.5 Hyperlipidemia, unspecified; E03.9 Hypothyroidism, unspecified; I89.0 Lymphedema, not elsewhere classified; Z88.0 Allergy status to penicillin; Z91.041 Radiographic dye allergy status; H54.8 Legal blindness, as defined in USA; I25.2 Old myocardial infarction; I35.0 Nonrheumatic aortic (valve) stenosis; I87.2 Venous insufficiency (chronic) (peripheral); I25.10 Atherosclerotic heart disease of native coronary artery without angina pectoris
CPT/HCPCS: 1NP; 87184; ERO; 36415; 36592; 71045; 73630-LT; 81001; 82436; 87040; 87086; 87147; 93005; 93010; 93306; 93970; 96365; 96375; 97161-GP; 97530-GO; 99291; A9561; C1769; J0690; J0713; J1644; J1650; J1940; J3370; J7040; J7060

== ENCOUNTER 2017-10-18 11:15 | Inpatient (IN) | payer OTHER ==
[~2017-10-18] VITALS: Ht 165.1 cm; Wt 155.8 kg
[~2017-10-18 11:15] MED LIST changes: +CEFAZOLIN2 GM/10 ML IV; +FERROUS SULFAT325 M3 PO; +KLOR-CON M2020 ME1 PO; +LOPRESSOR100 M1 PO; +LOVENOX100 MG/1 M SC; +LOVENOX80 MG/0.1 SC
[2017-10-18 14:43] LABS: ABSOLUTE BASOPHIL COUNT 0.1 /CUMM (0.0-0.2); ABSOLUTE EOSINOPHIL COUNT 0.1 /CUMM (0.0-0.7); ABSOLUTE GRANULOCYTE CT 6.4 /CUMM (1.4-6.5); ABSOLUTE LYMPH COUNT 1.4 /CUMM (1.2-3.4); ABSOLUTE MONOCYTE COUNT 1.3 /CUMM (0.10-0.60); BASOPHIL % 0.9 % (0.0-2.0); EOSINOPHIL % 1.1 % (0-5); MEAN CORPUSCULAR HGB CONC 32.2 G/DL (33.0-37.0); MEAN PLATELET VOLUME 10.5 FL (7.4-10.4); PLATELET COUNT 145 /CUMM (130-400); RBC DISTRIBUTION WIDTH 17.1 % (11.5-14.5); RED BLOOD CELL CT 4.89 /CUMM (4.20-5.40); WHITE BLOOD CELL COUNT 9.3 /CUMM (4.8-10.8)
--- NOTE | 2017-10-18 14:57 | ED UPPER/LOWER EXTREMITY COMPL ---
History of Present Illness General Chief Complaint: Lower Extremity Problems Stated Complaint: BIBA LEG SWELLING Source: patient, family, old records Exam Limitations: no limitations Allergies Coded Allergies: Gadolinium-Containing Contrast Medi (CONTRAST DYE - UNKNOWN 10/18/17) Iodinated Contrast- Oral and IV Dye (CONTRAST DYE - UNKNOWN 10/18/17) Penicillins (RASH 10/18/17) Uncoded Allergies: CONTRAST DYE (UNKNOWN 10/02/17) Reconcile Medications Cefazolin Sodium in 0.9 % NaCl (Cefazolin 2 G/10 Ml-Ns Syringe) 2 GRAM/10 ML SYRINGE 2 GM IV Q8 infection For total 6 weeks antibiotic course till November 14 through PICC line.. Ferrous Sulfate 325 MG (65 MG IRON) TABLET 1 TAB PO BID IRON, VITAMIN ( Reported) Furosemide 20 MG TABLET 1 TAB PO Sunday CHF . Levothyroxine Sodium (Synthroid) 125 MCG TABLET 0.125 MG PO DAILY AC thyroid . Magnesium Oxide 400 MG TABLET 1 TAB PO DAILY SUPPLEMENT (Reported) Metoprolol Tartrate (Lopressor) 100 MG TABLET 1 TAB PO BID Heart rate . Potassium Chloride (Klor-Con M20) 20 MEQ TAB.ER.PRT 1 TAB PO Sunday potassium supplement . Warfarin Sodium (Coumadin) 2.5 MG TABLET 1 TAB PO DAILY BLOOD THINNER ( Reported) Triage Note: PT BIBA FROM [facility] FOR C/C OF R LOWER EXTREMITY REDNESS AND SWELLING SINCE SUNDAY. PT RECENTLY DIAGNOSED WITH SEPTICEMIA AND ADMITTED TO [facility] AND DISCHARGED WITH PICC LINE FOR IV ANTIBIOTICS. PT DENIES N/V/D, CHEST PAIN, FEVERS OR CHILLS AT HOME. Triage Nurses Notes Reviewed? yes Onset: Abrupt Duration: day(s): Timing: recent history Severity: moderate, severe Pain/Injury Location: Right: Leg. Method of Injury: unknown No Modifying Factors: none HPI: 77-year-old female comes into emergency room with complaints of increased redness and pain to her right lower leg. Patient reports that she was just discharged here this past Sunday. She was here for septicemia. Questionable infection in the leg which caused that. This was in the left leg at that time. She reports that on of this past week when she was here in the hospital a walker had fallen and hit her in her right leg. The Sunday after she was discharged she noticed some redness and swelling. She has had increased redness swelling and pain and spreading of the redness. She is currently on cefazolin IV through PICC line as an outpatient. She comes in for further evaluation. (Yrn Aaron) Vital Signs & Intake/Output Vital Signs & Intake/Output Vital Signs Date Time Temp Pulse Resp B/P B/P Pulse O2 O2 Flow FiO2 Mean Ox Delivery Rate 10/19 1927 98.3 102 18 132/70 96 Room Air 10/18 1437 96 Room Air Room Air 10/18 1313 98.2 102 18 147/104 97 Room Air 10/18 1154 98.3 100 20 94 Room Air Room Air (Demetria CHAMBERS,Sanya Ray) Past History Travel History Traveled to [place] past 21 day No Medical History Any Pertinent Medical History? see below for history Neurological: NONE EENT: MACULAR DEGENERATION BLIN LEGALLY BLIND Cardiovascular: AFIB, hypertension Respiratory: N/A Gastrointestinal: N/A Hepatic: N/A Renal: N/A Musculoskeletal: NECROTIZING FASCIITIS left lower ext lymphedema Psychiatric: N/A Endocrine: hypothyroidism, obesity Blood Disorders: N/A Cancer(s): N/A COIN BOX [employer]OR/Reproductive: N/A History of MRSA: Yes History of VRE: No History of CDIFF: No Surgical History Surgical History: debridement left thigh s/p venous closure LLE Psychosocial History Who do you live with Spouse Services at Home None What is your primary language Malagasy Tobacco Use: Quit >30 days ago ETOH Use: denies use Illicit Drug Use: denies illicit drug use Family History Hx Contributory? No (Yrn Aaron) Review of Systems Review of Systems Constitutional: Reports: see HPI. EENTM: Reports: no symptoms. Respiratory: Reports: no symptoms. Cardiovascular: Reports: no symptoms. Gastrointestinal/Abdominal: Reports: no symptoms. Genitourinary: Reports: no symptoms. Musculoskeletal: Reports: no symptoms. Skin: Reports: see HPI. Neurological/Psychological: Reports: no symptoms. Hematologic/Endocrine: Reports: no symptoms. Immunological: Reports: no symptoms. All Other Systems: Reviewed and Negative (Yrn Aaron) Physical Exam Physical Exam General Appearance: well developed/nourished, mild distress Head: atraumatic Eyes: Bilateral: normal appearance. Ears, Nose, Throat: normal ENT inspection, hearing grossly normal Neck: normal inspection Cardiovascular/Respiratory: no respiratory distress Back: normal inspection Leg Right: erythema, warmth, well-demarcated borders,large area of of erythema that is circumferential covering the entire right leg below knee to ankle, pulses intact, sensation intact, some pitting edema Neurologic/Tendon: normal sensation, normal motor functions, normal tendon functions Skin: intact, normal color, warm/dry (Yrn Aaron) Progress Differential Diagnosis: cellulitis, contusion, DVT, fracture, septic arthritis, sprain, sepsis Diagnostic Imaging: Viewed by Me: Ultrasound. Discussed w/RAD: Ultrasound. Radiology Impression: PATIENT: DEBRA DIAZ PRESENT AGE: 77 PATIENT ACCOUNT NO: [id number] : 42 LOCATION: [facility] ORDERING PHYSICIAN: Yrn BYERS SERVICE DATE: 10/18/17 EXAM TYPE: US - US -UNILATERAL VENOUS DOPPLER EXAMINATION: US TRIPLEX LOWER EXTREMITY, RIGHT CLINICAL INFORMATION: Swelling and pain COMPARISON: None available. TECHNIQUE: Color-flow triplex imaging with spectral analysis and compression Doppler were performed on the right lower extremity. FINDINGS: Study is partially limited by patient body habitus. Respiratory variation, normal compression and augmented flow are noted throughout the lower extremity. The visualized common femoral vein, superficial femoral vein, profunda femoral vein, popliteal vein and midcalf peroneal and posterior tibial venous segments show no evidence of deep venous thrombosis. There is no Covarrubias's cyst. IMPRESSION: Normal triplex scan without evidence of deep venous thrombosis involving the right lower extremity. DICTATED BY: Sanya Bustos MD DATE/TIME DICTATED:10/18/171844 HOLISTIC HEALTH PRACTITIONER:NUBIA DATE/TIME TRANSCRIBED:10/18/171844 CONFIDENTIAL, DO NOT COPY WITHOUT APPROPRIATE AUTHORIZATION. <Electronically signed in Other Vendor System> SIGNED BY: Sanya Bustos MD 10/18/17 6579 Initial ED EKG: rate (100), AFIB (Yrn Aaron) Plan of Care: Orders Procedure Date/time Status Consistent Carbohydrate 1 10/19 B Active Pathway - chart 10/19 2015 Active House Staff 10/19 2015 Active Patient Data 10/19 2015 Active Code Status 10/19 2015 Active Intake & Output 10/18 2010 Active Misc Message 10/18 2008 Active ED Holding Orders 10/18 2008 Active Admit to inpatient 10/18 2008 Active Vital Signs 10/18 2008 Active Code Status 10/18 2008 Complete Add-on Test (ER Only) 10/18 1537 Active LACTIC ACID 10/18 1511 Complete BLOOD CULTURE 10/18 1456 Active PROTHROMBIN TIME 10/18 1430 Complete TROPONIN LEVEL 10/18 1213 Complete COMPREHENSIVE METABOLIC PANEL 10/18 1213 Complete CBC WITHOUT DIFFERENTIAL 10/18 1213 Complete LACTIC ACID 10/18 1211 Complete EKG 10/18 1159 Active VTE Mechanical Prophylaxis 10/18 UNK Active Current Medications Sig/Aldo Start time Last Medication Dose Stop Time Status Admin Acetaminophen 325 MG Q6 PRN 10/18 2029 UNVr (Tylenol) Laboratory Tests 10/18/17 1647: Lactic Acid 1.5 10/18/17 1430: Lactic Acid 1.9 10/18/17 1430: Anion Gap 13, Estimated GFR > 60, BUN/Creatinine Ratio 16.3, Glucose 110 H, Calcium 9.6, Total Bilirubin 1.0, AST 24, ALT 13, Alkaline Phosphatase 75, Troponin I < 0.01, Total Protein 8.4 H, Albumin 3.5, Globulin 4.9 H, Albumin/ Globulin Ratio 0.7 L, PT 27.0 H, INR 2.45 H, CBC w Diff NO MAN DIFF REQ, RBC 4.89, MCV 90.0, MCH 29.0, MCHC 32.2 L, RDW 17.1 H, MPV 10.5 H, Gran % 69.0, Lymphocytes % 14.6 L, Monocytes % 14.4 H, Eosinophils % 1.1, Basophils % 0.9, Absolute Granulocytes 6.4, Absolute Lymphocytes 1.4, Absolute Monocytes 1.3 H, Absolute Eosinophils 0.1, Absolute Basophils 0.1 10/18/17 1210: Troponin I Cancelled, CBC w Diff Cancelled, WBC Cancelled, RBC Cancelled, Hgb Cancelled, Hct Cancelled, MCV Cancelled, MCH Cancelled, MCHC Cancelled, RDW Cancelled, Plt Count Cancelled, MPV Cancelled Microbiology 10/18 1700 BLOOD: Blood Culture - RECD 10/18 165 BLOOD: Blood Culture - RECD (Demetria CHAMBERS,Sanya Ray) Departure Departure Disposition: STILL A PATIENT Condition: Stable Clinical Impression Primary Impression: Cellulitis of right leg Referrals: Jason Krishnan MD (PCP/Family) Departure Forms: Customer Survey General Discharge Information Admission Note Spoke With: Jason Krishnan MD Documentation of Exam: Documentation of any treatments & extenuating circumstances including Concerns Regarding Discharge (functional status, medication knowledge or non-compliance, living conditions, etc.) that warrant an admission rather than observation: Patient will require IV antibiotics. Spoke with Dr. GARDINER from infectious disease. Patient will require consultation. She has been getting IV antibiotics and her cellulitis is getting worse. She will require blood cultures. She will require different IV antibiotic. She is medically not safe for discharge. She is having difficulty with ambulation. High risk for septic shock. PT consultation. Wound care consultation. (Yrn Aaron) PA/PLATEN GRINDER Co-Sign Statement Statement: ED Attending supervision documentation- [X] I saw and evaluated the patient. I have also reviewed all the pertinent lab results and diagnostic results. I agree with the findings and the plan of care as documented in the PA's/PLATEN GRINDER's documentation. Patient presents for evaluation of worsening right leg pain and redness/swelling. Physical examination reveals violaceous discoloration of the anterior right leg with surrounding erythema I feel consistent with cellulitis, MRSA of concern. [] I have reviewed the ED Record and agree with the PA's/PLATEN GRINDER's documentation. [] Additions or exceptions (if any) to the PAs/PLATEN GRINDER's note and plan are summarized below: [] (Demetria CHAMBERS,Sanya Ray)
[2017-10-18] MEDS ORDERED: MAGNESIUM OXID400 M1 PO (15:01)
--- NOTE | 2017-10-18 18:50 | ULTRASOUND REPORT ---
EXAMINATION: US TRIPLEX LOWER EXTREMITY, RIGHT CLINICAL INFORMATION: Swelling and pain COMPARISON: None available. TECHNIQUE: Color-flow triplex imaging with spectral analysis and compression Doppler were performed on the right lower extremity. FINDINGS: Study is partially limited by patient body habitus. Respiratory variation, normal compression and augmented flow are noted throughout the lower extremity. The visualized common femoral vein, superficial femoral vein, profunda femoral vein, popliteal vein and midcalf peroneal and posterior tibial venous segments show no evidence of deep venous thrombosis. There is no Covarrubias's cyst. IMPRESSION: Normal triplex scan without evidence of deep venous thrombosis involving the right lower extremity.
--- NOTE | 2017-10-18 19:49 | PN- Att Addend ---
Attending Addendum Attending Brief Note 77-year-old female comes into emergency room with complaints of increased redness and pain to her right lower leg. Patient reports that she was just discharged here this past Sunday. She was here for septicemia. Questionable infection in the leg which caused that. This was in the left leg at that time. She reports that on of this past week when she was here in the hospital a walker had fallen and hit her in her right leg. The Sunday after she was discharged she noticed some redness and swelling. She has had increased redness swelling and pain and spreading of the redness. She is currently on cefazolin IV through PICC line as an outpatient. She comes in for further evaluation. Past History Travel History Traveled to [place] past 21 day No Medical History Any Pertinent Medical History? 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 No (Yrn Aaron) Review of Systems Review of Systems Constitutional: Reports: see HPI. EENTM: Reports: no symptoms. Respiratory: Reports: no symptoms. Cardiovascular: Reports: no symptoms. Gastrointestinal/Abdominal: Reports: no symptoms. Genitourinary: Reports: no symptoms. Musculoskeletal: Reports: no symptoms. Skin: Reports: see HPI. Neurological/Psychological: Reports: no symptoms. Hematologic/Endocrine: Reports: no symptoms. Immunological: Reports: no symptoms. All Other Systems: Reviewed and Negative (Yrn Aaron) Physical Exam Physical Exam General Appearance: well developed/nourished, mild distress Head: atraumatic Eyes: Bilateral: normal appearance. Ears, Nose, Throat: normal ENT inspection, hearing grossly normal Neck: normal inspection Cardiovascular/Respiratory: no respiratory distress Back: normal inspection Leg Right: erythema, warmth, well-demarcated borders,large area of of erythema that is circumferential covering the entire right leg below knee to ankle, pulses intact, sensation intact, some pitting edema Neurologic/Tendon: normal sensation, normal motor functions, normal tendon functions Skin: intact, normal color, warm/dry Vital Signs Date Time Temp Pulse Resp B/P B/P Pulse O2 O2 Flow FiO2 Mean Ox Delivery Rate 10/18 192 98.3 102 18 132/70 96 Room Air 10/18 1437 96 Room Air Room Air 10/18 1313 98.2 102 18 147/104 97 Room Air 10/18 1154 98.3 100 20 94 Room Air Room Air Laboratory Tests 10/18/17 1647: Lactic Acid 1.5 10/18/17 1430: Lactic Acid 1.9 10/18/17 1430: Anion Gap 13, Estimated GFR > 60, BUN/Creatinine Ratio 16.3, Glucose 110 H, Calcium 9.6, Total Bilirubin 1.0, AST 24, ALT 13, Alkaline Phosphatase 75, Troponin I < 0.01, Total Protein 8.4 H, Albumin 3.5, Globulin 4.9 H, Albumin/ Globulin Ratio 0.7 L, PT 27.0 H, INR 2.45 H, CBC w Diff NO MAN DIFF REQ, RBC 4.89, MCV 90.0, MCH 29.0, MCHC 32.2 L, RDW 17.1 H, MPV 10.5 H, Gran % 69.0, Lymphocytes % 14.6 L, Monocytes % 14.4 H, Eosinophils % 1.1, Basophils % 0.9, Absolute Granulocytes 6.4, Absolute Lymphocytes 1.4, Absolute Monocytes 1.3 H, Absolute Eosinophils 0.1, Absolute Basophils 0.1 10/18/17 1210: Troponin I Cancelled, CBC w Diff Cancelled, WBC Cancelled, RBC Cancelled, Hgb Cancelled, Hct Cancelled, MCV Cancelled, MCH Cancelled, MCHC Cancelled, RDW Cancelled, Plt Count Cancelled, MPV Cancelled Microbiology Date/Time Procedure - Status Source Growth 10/18 1700 Blood Culture - RECD BLOOD Orders Procedure Date/time Status Regular Diet 10/19 B Active Add-on Test (ER Only) 10/18 1537 Active LACTIC ACID 10/18 1511 Complete BLOOD CULTURE 10/18 1456 Active PROTHROMBIN TIME 10/18 1430 Complete TROPONIN LEVEL 10/18 1213 Complete COMPREHENSIVE METABOLIC PANEL 10/18 1213 Complete CBC WITHOUT DIFFERENTIAL 10/18 1213 Complete LACTIC ACID 10/18 1211 Complete EKG 10/18 1159 Active IMPRESSION This is a 77-year-old lady with history of morbid obesity, chronic lymphedema of the legs and abd wall, hypothyroidism, atrial fibrillation on anticoagulation with warfarin, chronic venous insufficiency, previous history of vein closure, previous history of significant necrotizing fasciitis septic shock with TSS, morbid obesity, secondary pulmonary hypertension, previous postoperative respiratory failure, hyperlipidemia, pre- clinical diabetes, with previous acute renal insufficiency, chronic diastolic chf, recent dc from the hospital due to MSSA sepsis prob due to soft tissue infection now on 6 weeks of abx, did not get COLBY due to being a poor candidate for it, on iv abx at home with picc line with cefazolin now comes with * Sig cellulitis of the rt leg with chronic lympedema, which started after she had local trauma. No sig leukocytosis etc, however clinically she does have sig cellulitis like features * ON active rx for MSSA sepsis due to prob soft tissue infection of the left foot (pt was not a good candidate for colby) currently on week 2 of 6 weeks of antibiotics with cefazolin * REcent left Foot ulcer on the sole of the lt foot Bone scan neg with improvement * Atrial fibrillation chronic on anticoag on warfarin/now INR to goal * Recent Type 2 MN with chf, now appears euvolemic, pt has remote history of NonSTMI * Hypothyroidism on appropriate supplementation * Chronic diastolic heart disease with recent chf now not in chf * Morbid obesity, with sig lymphedema and recurrent cellulitis PLAN Admit IV abx per id cont cefazolin Local wound care Elevate the leg Cont warfarin Resume out pt meds ( betablocker metoprolol 100 daily (if tartrate 50 bid and if succinate 100 qd , three times a week lasix, levoxyl, warfarin)
--- NOTE | 2017-10-18 20:08 | History & Physical ---
Callie Barr 10/18/17 2007: General Information and HPI MD Statement: I have seen and personally examined DEBRA PRESCOTT and documented this H&P. The patient is a 77 year old F who presented with a patient stated chief complaint of [right lower extremity pain]. Source of Information: patient, old records Exam Limitations: no limitations History of Present Illness: Ms. Prescott is a 77yo F w PMH of history of A. fib on warfarin, hypertension, history of necrotizing fasciitis of left lower extremity, hypothyroidism, w/ chief complaint of right lower extremity redness and swelling since Sunday. Patient stated that she was hit by a wheelchair during hospitalization at [facility] on last , 10/11/2017, no apparent injury at the point, and she was discharged on the 10/14/2017. Patient was hospitalized in the hospital because of recently diagnosed septicemia, and she was placed on PICC line for IV antibiotics of cefazolin 2 g IV every 8 hours, and the course should be finished by 11/14/2017. Patient's previous blood culture grows MSSA, however she also claimed that she had a history of MRSA. Patient denied fever at our clinical interaction, however stated that she might have some episode of fever at home prior to this admission. During our clinical interaction, patient denied fever/night sweat/weight change/ cough/SOB/Chest Pain/Palpitation/exercise intolerance/Abdominal pain/bowel movement/urinary abnormality, or other skin/musculoskeletal/neurological disorders/mood change/insomnia/dietary/appetite change. Allergies/Medications Allergies: Coded Allergies: Gadolinium-Containing Contrast Medi (CONTRAST DYE - UNKNOWN 10/18/17) Iodinated Contrast- Oral and IV Dye (CONTRAST DYE - UNKNOWN 10/18/17) Penicillins (RASH 10/18/17) Uncoded Allergies: CONTRAST DYE (UNKNOWN 10/02/17) Home Med list Cefazolin Sodium in 0.9 % NaCl (Cefazolin 2 G/10 Ml-Ns Syringe) 2 GRAM/10 ML SYRINGE 2 GM IV Q8 infection For total 6 weeks antibiotic course till November 14 through PICC line.. Ferrous Sulfate 325 MG (65 MG IRON) TABLET 1 TAB PO BID IRON, VITAMIN ( Reported) Furosemide 20 MG TABLET 1 TAB PO Sunday CHF . Levothyroxine Sodium (Synthroid) 125 MCG TABLET 0.125 MG PO DAILY AC thyroid . Magnesium Oxide 400 MG TABLET 1 TAB PO DAILY SUPPLEMENT (Reported) Metoprolol Tartrate (Lopressor) 100 MG TABLET 1 TAB PO BID Heart rate . Potassium Chloride (Klor-Con M20) 20 MEQ TAB.ER.PRT 1 TAB PO Sunday potassium supplement . 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 Exam & Diagnostic Data Last 24 Hrs of Vital Signs/I&O Vital Signs Date Time Temp Pulse Resp B/P B/P Pulse O2 O2 Flow FiO2 Mean Ox Delivery Rate 10/18 192 98.3 102 18 132/70 96 Room Air 10/18 1437 96 Room Air Room Air 10/18 1313 98.2 102 18 147/104 97 Room Air 10/18 1154 98.3 100 20 94 Room Air Room Air Intake & Output 10/18 1600 10/18 0800 10/18 0000 Intake Total Output Total Balance Patient 117.027 kg Weight Weight Reported by Patient Measurement Method Physical Exam General Appearance Alert, Oriented X3, Cooperative, No Acute Distress Skin No Breakdown, No Significant Lesion Skin Temp/Moisture Exam: Warm/Dry Sepsis Skin Exam (color): Normal for Ethnicity HEENT Atraumatic Neck Supple, No JVD Cardiovascular Regular Rate, Normal S1, Normal S2 Lungs Normal Air Movement, bilateral mild wheezing Abdomen Normal Bowel Sounds, Soft, No Tenderness Neurological Normal Speech Extremities No Cyanosis, No Edema, Normal Pulses, RLE erythema/redness/elevation of skin temperaure with tenderness on palpation Last 24 Hrs of Labs/Sorin: Laboratory Tests 10/18/17 1647: Lactic Acid 1.5 10/18/17 1430: Lactic Acid 1.9 10/18/17 1430: Anion Gap 13, Estimated GFR > 60, BUN/Creatinine Ratio 16.3, Glucose 110 H, Calcium 9.6, Total Bilirubin 1.0, AST 24, ALT 13, Alkaline Phosphatase 75, Troponin I < 0.01, Total Protein 8.4 H, Albumin 3.5, Globulin 4.9 H, Albumin/ Globulin Ratio 0.7 L, PT 27.0 H, INR 2.45 H, CBC w Diff NO MAN DIFF REQ, RBC 4.89, MCV 90.0, MCH 29.0, MCHC 32.2 L, RDW 17.1 H, MPV 10.5 H, Gran % 69.0, Lymphocytes % 14.6 L, Monocytes % 14.4 H, Eosinophils % 1.1, Basophils % 0.9, Absolute Granulocytes 6.4, Absolute Lymphocytes 1.4, Absolute Monocytes 1.3 H, Absolute Eosinophils 0.1, Absolute Basophils 0.1 10/18/17 1210: Troponin I Cancelled, CBC w Diff Cancelled, WBC Cancelled, RBC Cancelled, Hgb Cancelled, Hct Cancelled, MCV Cancelled, MCH Cancelled, MCHC Cancelled, RDW Cancelled, Plt Count Cancelled, MPV Cancelled Microbiology 10/18 1700 BLOOD: Blood Culture - RECD 10/18 1649 BLOOD: Blood Culture - RECD Assessment/Plan Assessment: Ms. Prescott is a 77yo F w PMH of history of A. fib on warfarin, hypertension, history of necrotizing fasciitis of left lower extremity, hypothyroidism, w/ chief complaint of right lower extremity redness and swelling since Sunday. Patient stated that she was hit by a wheelchair during hospitalization at [facility] on last , 10/11/2017, no apparent injury at the point, and she was discharged on the 10/14/2017. Patient was hospitalized in the hospital because of recently diagnosed septicemia, and she was placed on PICC line for IV antibiotics of cefazolin 2 g IV every 8 hours, and the course should be finished by 11/14/2017. Patient's previous blood culture grows MSSA, however she also claimed that she had a history of MRSA. Patient denied fever at our clinical interaction, however stated that she might have some episode of fever at home prior to this admission. During our clinical interaction, patient denied fever/night sweat/weight change/ cough/SOB/Chest Pain/Palpitation/exercise intolerance/Abdominal pain/bowel movement/urinary abnormality, or other skin/musculoskeletal/neurological disorders/mood change/insomnia/dietary/appetite change. On admission, Vitals: Stable afebrile, tachycardia 102, BP 147/104, room air -CBC: Unremarkable -BMP: Unremarkable -UA/Microbiology: -Misc: INR 2.45 on warfarin -Venous Doppler: Negative DVT of right lower extremity -Interventions in ER: Cefazolin 2 g IV 1 Problem list & Assessment: #Right lower extremity cellulitis #History of septicemia, on cefazolin week 2 of 6 weeks #PMH of history of A. fib on warfarin, hypertension, history of necrotizing fasciitis of left lower extremity, hypothyroidism Hospital Course: - Admit to general medicine -Continue IV antibiotics per ID consult currently will stay on cefazolin. -Pending cultures -Leg elevation -Continue warfarin, and daily INR range 2-3 -Continue home meds -Pain pathway for pain control DVT prophylaxis Heparin + ALPS Regular Diet Full Code As Ranked By This Provider Problem List: 1. Cellulitis Core Measures/Misc (03/11) Acute Coronary Syndrome ACS Diagnosis: No Congestive Heart Failure Congestive Heart Failure Diagnosis No Cerebrovascular Accident CVA/TIA Diagnosis: No VTE (View Protocol) VTE Risk Factors Age>40 No Mechanical VTE Prophylaxis d/t Medical Contraindication No VTE Pharm Prophylaxis d/t NA PharmProphylax ordered Sepsis (View protocol) Sepsis Present: Yes Jovanny Schwartz 10/18/174: Resident Review Statement Resident Statement: examined this patient, discussed with supervisor international reservations Other Findings: Patient is a 77-year-old female, legally blind, with past medical history of A. fib on Coumadin, hypertension, hyperlipidemia, hypothyroidism, thrombocytopenia, chronic lymphedema of legs, stage II CKD, history of shingles, necrotizing fasciitis, pulmonary hypertension, diastolic CHF, macular degeneration, recently discharged from [place] on 10/12/2017 after being treated for MSSA bacteremia presents to the ED with increasing pain and redness to her right lower leg that started about 7 days ago. Patient reports that she was discharged about 2 weeks back after being treated for MSSA bacteremia likely due to infection of her left leg. While going out of the hospital the walker fell on her right leg causing pain and swelling. At home the redness and swelling worsened and she has been unable to move her leg due to pain. She is currently on cefazolin IV(for 4 weeks, course to be completed on 11/14/2017) through the PICC on her right hand that was placed during last admission. Patient denied any fevers, chills, chest pain, palpitations, shortness of breath, cough, nausea, vomiting, urinary or bowel symptoms at home. Vitals at admission was remarkable for tachycardia. There was no leukocytosis, or bandemia. INR was 2.45 Right leg Doppler was negative for DVT She did not get up OXANA at that time as she was considered a poor candidate Physical exam General: Awake, alert, oriented, in moderate distress. Morbidly obese in appearance. HEENT: PERRLA, EOMI Chest: No respiratory distress CVS: Irregularly irregular, no murmur Abdomen: BS positive Extremities: Right leg erythema, warmth, well demarcated area seen below the knee to the ankle. 1+ pitting edema bilaterally. PICC line in the right arm Assessment: Right leg cellulitis status post trauma. Chronic lymphedema bilaterally extremities History of MSSA bacteremia currently on IV cefazolin through PICC A. fib on Coumadin Chronic diastolic heart failure Hypothyroidism Recent type II DE Morbid obesity [facility] Continue IV cefazolin for now ID consult in a.m./patient might need another antibiotic for cellulitis Leg elevation, warm compress Continue all other home medications Continue Coumadin for A. fib DVT prophylaxis Coumadin Full code
[2017-10-18 23:01] VITALS: BP 140/84
--- NOTE | 2017-10-19 01:56 | RADIOLOGY REPORT ---
EXAMINATION: XR PORTABLE CHEST CLINICAL INFORMATION: Confirm PICC line COMPARISON: 10/11/2017 TECHNIQUE: Portable frontal view of the chest was obtained. FINDINGS: Assessment is limited by patient body habitus. The right PICC line tip is not clearly seen and may lie in the region of the upper SVC. Lung volumes are symmetric. No focal consolidation is seen. No appreciable pneumothorax or significant pleural effusion. There is mild prominence of the central vasculature without overt edema. The cardiac silhouette remains prominent. Calcification is present at the aortic arch. No acute osseous findings are seen. IMPRESSION: Suboptimal assessment due to patient body habitus. Right PICC tip is not well seen and may lie in the region of the upper SVC.
[2017-10-19 05:55] VITALS: BP 138/72
--- NOTE | 2017-10-19 07:05 | PN- Housestaff ---
James CHAMBERS,Paty 10/19/17 0705: Subjective Follow-up For: Right lower extremity cellulitis Complaints: no complaints Subjective: Patient seen and examined at bedside. No overnight events. She is sitting in her bed comfortably. She complains of right lower extremity pain of 5 x 10. She denies shortness of breath, nausea, vomiting, fever, chest pain. Review of Systems Constitutional: Reports: no symptoms, see HPI. Objective Last 24 Hrs of Vital Signs/I&O Vital Signs Date Time Temp Pulse Resp B/P B/P Pulse O2 O2 Flow FiO2 Mean Ox Delivery Rate 10/19 0839 138/72 10/19 0800 Room Air Room Air 10/19 0750 Room Air 10/19 0555 98.1 100 20 138/72 98 Room Air 10/19 0000 Room Air 10/18 2301 98.2 112 22 140/84 96 Room Air 10/18 2300 95 Room Air 10/18 2252 Room Air 10/18 2104 102 20 132/70 10/18 1928 98.3 102 18 132/70 96 Room Air 10/18 1437 96 Room Air Room Air Intake & Output 10/19 1600 10/19 0800 10/19 0000 Intake Total 580 300 Output Total 250 Balance 330 300 Intake, IV 100 Intake, Oral 480 300 Output, Urine 250 Patient 345 lb 347 lb Weight Weight Bed scale Measurement Method Physical Exam General Appearance: Alert, Oriented X3, Cooperative Cardiovascular: Regular Rate, Normal S1, Normal S2, No Murmurs Lungs: Clear to Auscultation Abdomen: Soft, No Tenderness Neurological: Normal Tone, Sensation Intact Extremities: rt leg red/warm. left leg swollen.pulses felt, picc line appears normal Current Medications: Current Medications Sig/Aldo Start time Last Medication Dose Route Stop Time Status Admin Acetaminophen 325 MG Q6P PRN 10/18 2030 AC 10/19 PO 0851 Albuterol Sulfate 3 ML BID 10/19 0915 AC 10/19 INH 0750 Cefazolin Sodium 2 GM Q8H 10/19 1000 AC 10/19 N/A 1 UNIT IV 0845 Cefazolin Sodium 2 GM IQ8 10/19 0000 DC 10/19 N/A 1 UNIT IV 0209 Cefazolin Sodium 0 .STK-MED ONE 10/18 1719 DC .ROUTE Cefazolin Sodium 2,000 MG ONCE ONE 10/18 1715 DC 10/18 IV 10/18 1716 1731 Enoxaparin Sodium 40 MG DAILY 10/19 2015 DC SC Ferrous Sulfate 325 MG BID 10/19 09 AC 10/19 PO 0839 Furosemide 20 MG 10/19 09 AC 10/19 PO 0839 Levothyroxine Sodium 0.125 MG DAILY AC 10/19 0700 AC 10/19 PO 0506 Magnesium Oxide 400 MG DAILY 10/19 09 AC 10/19 PO 0839 Metoprolol Succinate 100 MG ONCE ONE 10/18 2044 DC 10/18 PO 10/18 Metoprolol Tartrate 50 MG BID 10/19 09 AC 10/19 PO 0839 Potassium Chloride 20 MEQ 10/19 AC 10/19 PO 0839 Warfarin Sodium 2.5 MG ONCE ONE 10/19 1330 UNVr PO 10/19 133 Warfarin Sodium 2.5 MG ONCE ONE 10/18 2044 DC 10/18 PO 10/18 Last 24 Hrs of Lab/Sorin Results Last 24 Hrs of Labs/Mics: Laboratory Tests 10/19/17 0546: Anion Gap 11, Estimated GFR > 60, BUN/Creatinine Ratio 14.4, PT 28.2 H, INR 2.56 H, CBC w Diff NO MAN DIFF REQ, RBC 4.50, MCV 89.9, MCH 29.1, MCHC 32.3 L, RDW 16.7 H, MPV 11.2 H, Gran % 62.7, Lymphocytes % 21.2, Monocytes % 14.6 H, Eosinophils % 1.0, Basophils % 0.5, Absolute Granulocytes 4.4, Absolute Lymphocytes 1.5, Absolute Monocytes 1.0 H, Absolute Eosinophils 0.1, Absolute Basophils 0 10/18/17 1647: Lactic Acid 1.5 10/18/17 1430: Lactic Acid 1.9 10/18/17 1430: Anion Gap 13, Estimated GFR > 60, BUN/Creatinine Ratio 16.3, Glucose 110 H, Calcium 9.6, Total Bilirubin 1.0, AST 24, ALT 13, Alkaline Phosphatase 75, Troponin I < 0.01, Total Protein 8.4 H, Albumin 3.5, Globulin 4.9 H, Albumin/ Globulin Ratio 0.7 L, PT 27.0 H, INR 2.45 H, CBC w Diff NO MAN DIFF REQ, RBC 4.89, MCV 90.0, MCH 29.0, MCHC 32.2 L, RDW 17.1 H, MPV 10.5 H, Gran % 69.0, Lymphocytes % 14.6 L, Monocytes % 14.4 H, Eosinophils % 1.1, Basophils % 0.9, Absolute Granulocytes 6.4, Absolute Lymphocytes 1.4, Absolute Monocytes 1.3 H, Absolute Eosinophils 0.1, Absolute Basophils 0.1 Microbiology 10/18 1700 BLOOD: Blood Culture - RES 10/18 1649 BLOOD: Blood Culture - RES Assessment/Plan Assessment: Patient is a 77-year-old female, legally blind, with past medical history of A. fib on Coumadin, hypertension, hyperlipidemia, hypothyroidism, thrombocytopenia, chronic lymphedema of legs, stage II CKD, history of shingles, necrotizing fasciitis, pulmonary hypertension, diastolic CHF, macular degeneration, recently discharged from [place] on 10/12/2017 after being treated for MSSA bacteremia presents to the ED with increasing pain and redness to her right lower leg that started about 7 days ago. Assessment and plan 1. Right lower extremity cellulitis 2. Bilateral chronic lymphedema 3. MSSA bacteremia on cefazolin * Patient is on cefazolin and will continue the same. Infectious disease consult placed. * Advised leg elevation and warm compression * Continue home medication metoprolol 50 twice a day, magnesium 400 daily, levothyroxine 0.125 g, Lasix 20 Sunday and Sunday, * Check INR and dose Coumadin * Patient potassium was low 3.2 we will replace the same and follow-up with electrolytes. * Code-full code * Diet-consistent carbohydrate 1 * DVT prophylaxis-patient is on warfarin Problem List: 1. Cellulitis of right leg Pain Ratin Pain Location: Right leg Pain Goal: Remain pain free Pain Plan: Tylenol Tomorrow's Labs & Rationales: CBC, BEP, INR Eulogio CHAMBERS,[facility] 10/19/17 1042: Objective Last 24 Hrs of Vital Signs/I&O Vital Signs Date Time Temp Pulse Resp B/P B/P Pulse O2 O2 Flow FiO2 Mean Ox Delivery Rate 10/19 0839 138/72 10/19 0800 Room Air Room Air 10/19 0750 Room Air 10/19 0555 98.1 100 20 138/72 98 Room Air 10/19 0000 Room Air 10/18 2301 98.2 112 22 140/84 96 Room Air 10/18 2300 95 Room Air 10/18 2252 Room Air 10/18 2104 102 20 132/70 10/18 1928 98.3 102 18 132/70 96 Room Air 10/18 1437 96 Room Air Room Air 10/18 1313 98.2 102 18 147/104 97 Room Air 10/18 1154 98.3 100 20 94 Room Air Room Air Intake & Output 10/19 1600 10/19 0800 10/19 0000 Intake Total 580 300 Output Total 250 Balance 330 300 Intake, IV 100 Intake, Oral 480 300 Output, Urine 250 Patient 345 lb 347 lb Weight Weight Bed scale Measurement Method Attending MD Review Statement Attending Statement Attending MD Statement: examined this patient, discuss w/resident/PA/HAIR BLENDER, agreed w/resident/PA/HAIR BLENDER, discussed with family, reviewed EMR data (avail), discussed with nursing, discussed with case mgmt, reviewed images, amended to note Attending Assessment/Plan: Seen and examined Doing ok General Appearance: well developed/nourished, mild distress Head: atraumatic Eyes: Bilateral: normal appearance. Ears, Nose, Throat: normal ENT inspection, hearing grossly normal Neck: normal inspection Cardiovascular/Respiratory: no respiratory distress Back: normal inspection Leg Right: erythema, warmth, well-demarcated borders,large area of of erythema that is circumferential covering the entire right leg below knee to ankle, pulses intact, sensation intact, some pitting edema Neurologic/Tendon: normal sensation, normal motor functions, normal tendon functions Skin: intact, normal color, warm/dry IMPRESSION This is a 77-year-old lady with history of morbid obesity, chronic lymphedema of the legs and abd wall, hypothyroidism, atrial fibrillation on anticoagulation with warfarin, chronic venous insufficiency, previous history of vein closure, previous history of significant necrotizing fasciitis septic shock with TSS, morbid obesity, secondary pulmonary hypertension, previous postoperative respiratory failure, hyperlipidemia, pre- clinical diabetes, with previous acute renal insufficiency, chronic diastolic chf, recent dc from the hospital due to MSSA sepsis prob due to soft tissue infection now on 6 weeks of abx, did not get OXANA due to being a poor candidate for it, on iv abx at home with picc line with cefazolin now comes with * Sig cellulitis vs hematoma of the rt leg in a pt with chronic lympedema, which started after she had local trauma. No sig leukocytosis etc * ON active rx for MSSA sepsis due to prob soft tissue infection of the left foot (pt was not a good candidate for OXANA) currently on week 2 of 6 weeks of antibiotics with cefazolin * REcent left Foot ulcer on the sole of the lt foot Bone scan neg with improvement * Atrial fibrillation chronic on anticoag on warfarin/now INR to goal * Recent Type 2 VT with chf, now appears euvolemic, pt has remote history of NonSTMI * Hypothyroidism on appropriate supplementation * Chronic diastolic heart disease with recent chf now not in chf * Morbid obesity, with sig lymphedema and recurrent cellulitis PLAN ID to see Await blood cultures Further imaging per id IV abx per id cont cefazolin Local wound care Elevate the leg Cont warfarin Keep INR at 2.5 Cont current meds Ok to dc over the weekend if stable
[2017-10-19 08:23] LABS: ABSOLUTE BASOPHIL COUNT 0 /CUMM (0.0-0.2); ABSOLUTE EOSINOPHIL COUNT 0.1 /CUMM (0.0-0.7); ABSOLUTE GRANULOCYTE CT 4.4 /CUMM (1.4-6.5); ABSOLUTE LYMPH COUNT 1.5 /CUMM (1.2-3.4); BASOPHIL % 0.5 % (0.0-2.0); GRANULOCYTE % 62.7 % (42.2-75.2); HEMATOCRIT 40.5 % (37-47); MEAN CORPUSCULAR HGB 29.1 PG (27.0-31.0); MEAN CORPUSCULAR HGB CONC 32.3 G/DL (33.0-37.0); MEAN CORPUSCULAR VOLUME 89.9 FL (81.0-99.0); MEAN PLATELET VOLUME 11.2 FL (7.4-10.4); PLATELET COUNT 125 /CUMM (130-400); RBC DISTRIBUTION WIDTH 16.7 % (11.5-14.5)
[2017-10-19 08:30] LABS: PT 28.2 SEC (9.4-12.5)
[2017-10-19 13:46] VITALS: BP 130/70
--- NOTE | 2017-10-19 16:03 | Cons- Infect Disease ---
General Information and HPI Consulting Request Date of Consult: 10/19/17 Requested By: Eulogio CHAMBERS,Jason Welsh Reason for Consult: Right leg cellulitis Source of Information: patient, family, old records History of Present Illness: This is a 77-year-old woman, morbidly obese, with a history of hypertension, atrial fibrillation, maintained on Coumadin, hypothyroidism, venous insufficiency, with chronic venous stasis changes of both lower extremities, left greater than right, MRSA positive, with a history of necrotizing fasciitis of the left thigh 3-1/2 years prior to admission, hospitalized 2 weeks prior to admission with MSSA sepsis, attributed to a left leg cellulitis, with a bone scan (obtained because of a callus on the plantar aspect of the left foot) negative, discharged on Cefazolin after a 9 day hospitalization to complete an empiric (6 week) course for endocarditis, as a OXANA was felt to be associated with too high a risk, readmitted on October 18 with increasing erythema and pain of the anterior aspect of the right leg, which she attributes to trauma from a wheelchair injury several days prior to her recent discharge, with no associated fevers or chills. On admission she was afebrile. Laboratory data revealed a white blood cell count of 9000, BUN/creatinine 13 and 0.8, with normal liver enzymes, INR 2.45. Doppler of the right lower extremity was negative. Chest x- ray revealed no acute process. She was continued on Cefazolin and has remained afebrile overnight. She does note improvement today with decreasing erythema over the tibial aspect of her right leg. Allergies/Medications Allergies: Coded Allergies: Gadolinium-Containing Contrast Medi (CONTRAST DYE - UNKNOWN 10/18/17) Iodinated Contrast- Oral and IV Dye (CONTRAST DYE - UNKNOWN 10/18/17) Penicillins (RASH 10/18/17) Uncoded Allergies: CONTRAST DYE (UNKNOWN 10/02/17) Home Med List: Cefazolin Sodium in 0.9 % NaCl (Cefazolin 2 G/10 Ml-Ns Syringe) 2 GRAM/10 ML SYRINGE 2 GM IV Q8 infection For total 6 weeks antibiotic course till November 14 through PICC line.. Ferrous Sulfate 325 MG (65 MG IRON) TABLET 1 TAB PO BID IRON, VITAMIN ( Reported) Furosemide 20 MG TABLET 1 TAB PO Sunday CHF . Levothyroxine Sodium (Synthroid) 125 MCG TABLET 0.125 MG PO DAILY AC thyroid . Magnesium Oxide 400 MG TABLET 1 TAB PO DAILY SUPPLEMENT (Reported) Metoprolol Tartrate (Lopressor) 100 MG TABLET 1 TAB PO BID Heart rate . Potassium Chloride (Klor-Con M20) 20 MEQ TAB.ER.PRT 1 TAB PO Sunday potassium supplement . 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 Home Services at Home: None Smoking Status: Former Smoker Review of Systems Review of Systems All Other Systems: Reviewed and Negative Exam & Diagnostic Data Last 24 Hrs of Vital Signs/I&O Vital Signs Date Time Temp Pulse Resp B/P B/P Pulse O2 O2 Flow FiO2 Mean Ox Delivery Rate 10/19 1346 98.2 92 20 130/70 95 Room Air 10/19 0839 138/72 10/19 0800 Room Air Room Air 10/19 0750 Room Air 10/19 0555 98.1 100 20 138/72 98 Room Air 10/19 0000 Room Air 10/18 2301 98.2 112 22 140/84 96 Room Air 10/18 2300 95 Room Air 10/18 2252 Room Air 10/18 2104 102 20 132/70 10/18 1928 98.3 102 18 132/70 96 Room Air Intake & Output 10/19 1600 10/19 0800 10/19 0000 Intake Total 1900 580 300 Output Total 250 Balance 1900 330 300 Intake, IV 100 100 Intake, Oral 1800 480 300 Number 0 Bowel Movements Output, Urine 250 Patient 345 lb 347 lb Weight Weight Bed scale Measurement Method Physical Exam Other Physical Findings: She is awake and alert in no acute distress. She is afebrile. Skin reveals no rash. HEENT exam is negative. Neck is supple with no adenopathy. Lungs are clear. Heart regular rhythm with no murmur. Abdomen is obese, soft, nontender with positive bowel sounds. Back no CVA tenderness. Extremities chronic venous stasis changes to the left leg; erythema, edema, warmth and tenderness on the anterior tibial aspect of the right leg; decreased pulses bilaterally; PICC in the right upper extremity with no inflammation at the site. Neuro is without focality. Last 24 Hours of Lab Results: Laboratory Tests 10/19 10/18 0546 1647 Chemistry Sodium (137 - 145 mmol/L) 139 Potassium (3.5 - 5.1 mmol/L) 4.1 Chloride (98 - 107 mmol/L) 102 Carbon Dioxide (22 - 30 mmol/L) 26 Anion Gap (5 - 16) 11 BUN (7 - 17 mg/dL) 13 Creatinine (0.5 - 1.0 mg/dL) 0.9 Estimated GFR (>60 ml/min) > 60 BUN/Creatinine Ratio (7 - 25 %) 14.4 Lactic Acid (0.7 - 2.1 mmol/L) 1.5 Coagulation PT (9.4 - 12.5 SEC) 28.2 H INR (0.90 - 1.19) 2.56 H Hematology CBC w Diff NO MAN DIFF REQ WBC (4.8 - 10.8 /CUMM) 7.0 RBC (4.20 - 5.40 /CUMM) 4.50 Hgb (12.0 - 16.0 G/DL) 13.1 Hct (37 - 47 %) 40.5 MCV (81.0 - 99.0 FL) 89.9 MCH (27.0 - 31.0 PG) 29.1 MCHC (33.0 - 37.0 G/DL) 32.3 L RDW (11.5 - 14.5 %) 16.7 H Plt Count (130 - 400 /CUMM) 125 L MPV (7.4 - 10.4 FL) 11.2 H Gran % (42.2 - 75.2 %) 62.7 Lymphocytes % (20.5 - 51.1 %) 21.2 Monocytes % (1.7 - 9.3 %) 14.6 H Eosinophils % (0 - 5 %) 1.0 Basophils % (0.0 - 2.0 %) 0.5 Absolute Granulocytes (1.4 - 6.5 /CUMM) 4.4 Absolute Lymphocytes (1.2 - 3.4 /CUMM) 1.5 Absolute Monocytes (0.10 - 0.60 /CUMM) 1.0 H Absolute Eosinophils (0.0 - 0.7 /CUMM) 0.1 Absolute Basophils (0.0 - 0.2 /CUMM) 0 Last 24 Hours of Sorin Results: Blood cultures 2 October 18 negative Diagnostic Data Recent Imaging Findings: Chest x-ray October 18 negative Doppler of the right lower extremity October 18 negative Assessment/Plan Assessment/Plan Impression: This is a 77-year-old woman, morbidly obese, with chronic venous stasis changes of both lower extremities, left greater than right, hospitalized 2 weeks prior to admission with MSSA sepsis, attributed to a left leg cellulitis, discharged on Cefazolin to complete a 6 week course for presumptive endocarditis, as a OXANA was felt to be associated with too high a risk, readmitted on October 18 with increasing erythema and pain of the anterior aspect of the right leg, which she attributes to trauma from a wheelchair injury several days prior to her recent discharge, with no associated fevers or chills, found to be afebrile with a normal white blood cell count and with a localized inflammation over the anterior tibial aspect of her right leg. Her presentation is worrisome for a localized cellulitis, but she has no fever or leukocytosis; therefore the possibility that this represents a hematoma (as she is on Coumadin) could be considered. As this developed on Cefazolin would need to consider broadening her antibiotics if this was felt to represent a cellulitis. As she appears stable and notes overall improvement since admission feel that the Cefazolin can be continued at this time. Suggestion: 1. Elevation of the right lower extremity 2. Warm compresses to the right lower extremity 3. Continue Cefazolin if she continues to improve, with plans to complete a 6 week course (until November 14) Nidhi Spencer MD will be covering over the weekend Consult Acknowledgment - Thank you for your consult request.
[2017-10-19 21:43] VITALS: BP 138/74
[2017-10-20 06:03] VITALS: BP 149/81
--- NOTE | 2017-10-20 08:25 | PN- Housestaff ---
See Addendum Subjective Follow-up For: Right lower extremity erythema Subjective: No overnight events. Patient continues to be afebrile with no complaints except for the right lower extremity redness. She has no chest pain, shortness of breath, abdominal pain, nausea, vomiting, diarrhea, or other issues. She is hoping to go home tomorrow. Review of Systems Constitutional: Reports: no symptoms. EENTM: Reports: no symptoms. Cardiovascular: Reports: no symptoms. Respiratory: Reports: no symptoms. Gastrointestinal: Reports: no symptoms. Genitourinary: Reports: no symptoms. Musculoskeletal: Reports: no symptoms. Skin: Reports: see HPI. Neurological/Psychological: Reports: no symptoms. Hematologic/Endocrine: Reports: no symptoms. Immunologic/Allergic: Reports: no symptoms. Objective Last 24 Hrs of Vital Signs/I&O Vital Signs Date Time Temp Pulse Resp B/P B/P Pulse O2 O2 Flow FiO2 Mean Ox Delivery Rate 10/20 0821 90 140/90 10/20 0603 98.2 90 20 149/81 95 10/19 2143 98.0 88 21 138/74 95 Room Air 10/19 2049 82 144/74 10/19 1905 96 Room Air 10/19 1600 Room Air 10/19 1346 98.2 92 20 130/70 95 Room Air 10/19 0839 138/72 Intake & Output 10/20 1600 10/20 0800 10/20 0000 Intake Total 120 360 Output Total 450 150 Balance -330 210 Intake, Oral 120 360 Output, Urine 450 150 Patient 155.781 kg Weight Weight Bed scale Measurement Method Physical Exam General Appearance: Alert, Oriented X3, Cooperative, No Acute Distress Cardiovascular: Regular Rate, Normal S1, Normal S2 Lungs: Clear to Auscultation Abdomen: Normal Bowel Sounds, Soft, No Tenderness Extremities: RLE erythema and warmth, not extending past marker Current Medications: Current Medications Sig/Aldo Start time Last Medication Dose Route Stop Time Status Admin Acetaminophen 325 MG Q6P PRN 10/18 2030 AC 10/19 PO 2211 Albuterol Sulfate 3 ML BID 10/19 0915 AC 10/19 INH 1905 Cefazolin Sodium 2 GM Q8H 10/19 1600 AC 10/20 N/A 1 UNIT IV 0820 Cefazolin Sodium 2 GM Q8H 10/19 1000 DC 10/19 N/A 1 UNIT IV 0845 Ferrous Sulfate 325 MG BID 10/19 0900 AC 10/20 PO 0820 Furosemide 20 MG 10/19 09 AC 10/19 PO 0839 Levothyroxine Sodium 0.125 MG DAILY AC 10/19 0700 AC 10/20 PO 0603 Magnesium Oxide 400 MG DAILY 10/19 0900 AC 10/19 PO 0839 Metoprolol Tartrate 50 MG BID 10/19 09 AC 10/20 PO 0821 Potassium Chloride 20 MEQ 10/19 09 AC 10/19 PO 0839 Warfarin Sodium 2.5 MG 2100 10/19 2100 DC 10/19 PO 10/19 210 204 Warfarin Sodium 2.5 MG 1700 10/19 1700 DC PO 10/19 1701 Warfarin Sodium 2.5 MG ONCE ONE 10/19 1330 CAN PO 10/19 1331 Last 24 Hrs of Lab/Sorin Results Last 24 Hrs of Labs/Mics: Laboratory Tests 10/20/17 0539: Sodium Pending, Potassium Pending, Chloride Pending, Carbon Dioxide Pending, Anion Gap Pending, BUN Pending, Creatinine Pending, BUN/Creatinine Ratio Pending , PT Pending, INR Pending, CBC w Diff Pending, WBC Pending, RBC Pending, Hgb Pending, Hct Pending, MCV Pending, MCH Pending, MCHC Pending, RDW Pending, Plt Count Pending, MPV Pending Assessment/Plan Assessment: Patient is a 77-year-old female, legally blind, with past medical history of A. fib on Coumadin, hypertension, hyperlipidemia, hypothyroidism, thrombocytopenia, chronic lymphedema of legs, stage II CKD, history of shingles, necrotizing fasciitis, pulmonary hypertension, diastolic CHF, macular degeneration, recently discharged from [place] on 10/12/2017 after being treated for MSSA bacteremia presents to the ED with increasing pain and redness to her right lower leg that started about 7 days ago. Assessment and plan 1. Right lower extremity cellulitis 2. Bilateral chronic lymphedema 3. MSSA bacteremia on cefazolin * Patient is on cefazolin and will continue the same. Erythema has not passed marker yet. Infectious disease recommendations appreciated, recommending to continue cefazolin at this time * Advised leg elevation and warm compression * Continue home medication metoprolol 50 twice a day, magnesium 400 daily, levothyroxine 0.125 g, Lasix 20 Sunday and Sunday, * Check INR and dose Coumadin * Patient potassium was low 3.2 we will replace the same and follow-up with electrolytes. * Code-full code * Diet-consistent carbohydrate 1 * DVT prophylaxis-patient is on warfarin Problem List: 1. Cellulitis Pain Ratin Pain Location: no Pain Goal: Remain pain free Pain Plan: see a/p Tomorrow's Labs & Rationales: cbc, bep, inr
[2017-10-20 08:26] LABS: ABSOLUTE BASOPHIL COUNT 0 /CUMM (0.0-0.2); ABSOLUTE EOSINOPHIL COUNT 0.1 /CUMM (0.0-0.7); ABSOLUTE GRANULOCYTE CT 3.8 /CUMM (1.4-6.5); ABSOLUTE LYMPH COUNT 1.6 /CUMM (1.2-3.4); BASOPHIL % 0.7 % (0.0-2.0); EOSINOPHIL % 1.5 % (0-5); GRANULOCYTE % 58.2 % (42.2-75.2); HEMATOCRIT 40.6 % (37-47); MEAN CORPUSCULAR HGB 29.2 PG (27.0-31.0); MEAN CORPUSCULAR HGB CONC 32.4 G/DL (33.0-37.0); PLATELET COUNT 119 /CUMM (130-400); RBC DISTRIBUTION WIDTH 16.9 % (11.5-14.5); RED BLOOD CELL CT 4.51 /CUMM (4.20-5.40); WHITE BLOOD CELL COUNT 6.6 /CUMM (4.8-10.8)
[2017-10-20 08:48] LABS: PT 30.9 SEC (9.4-12.5)
--- NOTE | 2017-10-20 12:45 | PN- Infect Dx ---
Subjective Subjective: Patient continues to be afebrile with no complaints except for the right lower extremity redness. She has no chest pain, shortness of breath, abdominal pain, nausea, vomiting, or diarrhea. Review of Systems Comments: 12 points reviewed as noted, otherwise negative. Objective Last 24 Hrs of Vital Signs/I&O Vital Signs Date Time Temp Pulse Resp B/P B/P Pulse O2 O2 Flow FiO2 Mean Ox Delivery Rate 10/20 0855 95 Room Air Room Air 10/20 0821 90 140/90 10/20 0603 98.2 90 20 149/81 95 10/19 2143 98.0 88 21 138/74 95 Room Air 10/19 2049 82 144/74 10/19 1905 96 Room Air 10/19 1600 Room Air 10/19 1346 98.2 92 20 130/70 95 Room Air Intake & Output 10/20 1600 10/20 0800 10/20 0000 Intake Total 120 360 Output Total 450 150 Balance -330 210 Intake, Oral 120 360 Output, Urine 450 150 Patient 343 lb Weight Weight Bed scale Measurement Method Physical Exam Other Physical Findings: General Appearance: elevated BMI, NAD Neuro: Alert, Oriented X3, Cooperative, No Acute Distress HEENT AT/NC NeckNo JVD Cardiovascular: Regular Rate, Normal S1, Normal S2 Lungs: Clear to Auscultation Abdomen: DiminishedBowel Sounds, Soft, No Tenderness Extremities: RLE bright erythema ant lower tibia, receding past marker outline B/l LE's edema Results Last 24 Hours of Lab Results: Laboratory Tests 10/20 0539 Chemistry Sodium (137 - 145 mmol/L) 141 Potassium (3.5 - 5.1 mmol/L) 4.2 Chloride (98 - 107 mmol/L) 104 Carbon Dioxide (22 - 30 mmol/L) 26 Anion Gap (5 - 16) 10 BUN (7 - 17 mg/dL) 14 Creatinine (0.5 - 1.0 mg/dL) 0.8 Estimated GFR (>60 ml/min) > 60 BUN/Creatinine Ratio (7 - 25 %) 17.5 Coagulation PT (9.4 - 12.5 SEC) 30.9 H INR (0.90 - 1.19) 2.81 H Hematology CBC w Diff NO MAN DIFF REQ WBC (4.8 - 10.8 /CUMM) 6.6 RBC (4.20 - 5.40 /CUMM) 4.51 Hgb (12.0 - 16.0 G/DL) 13.2 Hct (37 - 47 %) 40.6 MCV (81.0 - 99.0 FL) 90.0 MCH (27.0 - 31.0 PG) 29.2 MCHC (33.0 - 37.0 G/DL) 32.4 L RDW (11.5 - 14.5 %) 16.9 H Plt Count (130 - 400 /CUMM) 119 L MPV (7.4 - 10.4 FL) 11.0 H Gran % (42.2 - 75.2 %) 58.2 Lymphocytes % (20.5 - 51.1 %) 23.8 Monocytes % (1.7 - 9.3 %) 15.8 H Eosinophils % (0 - 5 %) 1.5 Basophils % (0.0 - 2.0 %) 0.7 Absolute Granulocytes (1.4 - 6.5 /CUMM) 3.8 Absolute Lymphocytes (1.2 - 3.4 /CUMM) 1.6 Absolute Monocytes (0.10 - 0.60 /CUMM) 1.0 H Absolute Eosinophils (0.0 - 0.7 /CUMM) 0.1 Absolute Basophils (0.0 - 0.2 /CUMM) 0 Last 24 Hours of Sorin Results: SPEC #: [id number] MORGAN: 10/18/17 STATUS: RES RECD: 10/18/[address]: Yrn Aaron SOURCE: BLOOD ENTR: 10/18/[address] [facility] [address]: Eulogio CHAMBERS,Jason Welsh SPDESC: 2ND/VENOUS ORDERED: BLOOD CULTURE Procedure Result > BLOOD CULTURE REPORT Preliminary 10/19/17 No growth after 1 day incubation. Specimen is examined continuously for 5 days before final report unless culture becomes positive. Recent Imaging Studies: CXR IMPRESSION: Suboptimal assessment due to patient body habitus. Right PICC tip is not well seen and may lie in the region of the upper SVC. DICTATED BY: Bj Pillai MD DATE/TIME DICTATED:10/19/17149 POISON INFORMATION SPECIALIST:NUBIA DATE/TIME TRANSCRIBED:10/19/17149 Assessment/Plan ID Impression: 77-year-old woman, morbidly obese, with a history of hypertension, atrial fibrillation, maintained on Coumadin, hypothyroidism, venous insufficiency, with chronic venous stasis changes of both lower extremities, left greater than right , MRSA positive, with a history of necrotizing fasciitis of the left thigh 3-1/2 years prior to admission, hospitalized 2 weeks prior to admission with MSSA sepsis, attributed to a left leg cellulitis, with a bone scan (obtained because of a callus on the plantar aspect of the left foot) negative, discharged on Cefazolin after a 9 day hospitalization to complete an empiric (6 week) course for endocarditis, as a OXANA was felt to be associated with too high a risk, readmitted on October 18 with increasing erythema and pain of the anterior aspect of the right leg, which she attributes to trauma from a wheelchair injury several days prior to her recent discharge Suggestion: 1. Elevation of the right lower extremity 2. Warm compresses to the right lower extremity 3. Continue Cefazolin if she continues to improve, with plans to complete a 6 week course (until November 14). 4. Weekly CBC, BMP, ESR while on iv abx.
[2017-10-20 14:57] VITALS: BP 120/68
[2017-10-20 20:50] VITALS: BP 145/92
[2017-10-21 06:00] VITALS: BP 150/92
[2017-10-21 06:05] VITALS: BP 150/92
[2017-10-21 06:18] VITALS: BP 150/92
[2017-10-21 07:51] LABS: ABSOLUTE BASOPHIL COUNT 0.1 /CUMM (0.0-0.2); ABSOLUTE EOSINOPHIL COUNT 0.1 /CUMM (0.0-0.7); ABSOLUTE GRANULOCYTE CT 3.9 /CUMM (1.4-6.5); ABSOLUTE LYMPH COUNT 1.7 /CUMM (1.2-3.4); ABSOLUTE MONOCYTE COUNT 0.9 /CUMM (0.10-0.60); BASOPHIL % 0.8 % (0.0-2.0); GRANULOCYTE % 58.8 % (42.2-75.2); HEMATOCRIT 40.8 % (37-47); MEAN CORPUSCULAR HGB 29.3 PG (27.0-31.0); MEAN CORPUSCULAR HGB CONC 32.4 G/DL (33.0-37.0); MEAN CORPUSCULAR VOLUME 90.4 FL (81.0-99.0); MEAN PLATELET VOLUME 10.8 FL (7.4-10.4); PLATELET COUNT 138 /CUMM (130-400); RBC DISTRIBUTION WIDTH 16.8 % (11.5-14.5); RED BLOOD CELL CT 4.51 /CUMM (4.20-5.40); WHITE BLOOD CELL COUNT 6.6 /CUMM (4.8-10.8)
--- NOTE | 2017-10-21 08:04 | PN- Housestaff ---
See Addendum Subjective Follow-up For: Cellulitis Subjective: No overnight events. The patient feels ready to go home this morning. She was asking about getting something for her phlegm and I told her Mucinex would be good. She said she will buy it [id number]. Review of Systems Constitutional: Reports: no symptoms. EENTM: Reports: no symptoms. Cardiovascular: Reports: no symptoms. Respiratory: Reports: see HPI. Gastrointestinal: Reports: no symptoms. Genitourinary: Reports: no symptoms. Musculoskeletal: Reports: no symptoms. Skin: Reports: no symptoms. Neurological/Psychological: Reports: no symptoms. Hematologic/Endocrine: Reports: no symptoms. Immunologic/Allergic: Reports: no symptoms. Objective Last 24 Hrs of Vital Signs/I&O Vital Signs Date Time Temp Pulse Resp B/P B/P Pulse O2 O2 Flow FiO2 Mean Ox Delivery Rate 10/21 0618 106 150/92 10/21 0605 97.7 106 20 150/92 96 10/21 0600 106 150/92 10/21 0029 93 10/20 2224 70 10/20 2050 98.3 111 20 145/92 95 Room Air 10/20 2048 111 145/92 10/20 1457 98.2 89 20 120/68 95 Room Air 10/20 0855 95 Room Air Room Air 10/20 0821 90 140/90 Intake & Output 10/21 1600 10/21 0800 10/21 0000 Intake Total 120 700 Output Total 100 Balance 20 700 Intake, IV 220 Intake, Oral 120 480 Number 0 Bowel Movements Output, Urine 100 Physical Exam General Appearance: Alert, Oriented X3, Cooperative, No Acute Distress Cardiovascular: Regular Rate, Normal S1, Normal S2 Lungs: Clear to Auscultation Abdomen: Normal Bowel Sounds, Soft, No Tenderness Extremities: stable erythema, retracting from marker line Current Medications: Current Medications Sig/Aldo Start time Last Medication Dose Route Stop Time Status Admin Acetaminophen 325 MG Q6P PRN 10/18 2030 10/20 PO 2231 Albuterol Sulfate 3 ML BID 10/19 0915 10/20 INH 0853 Cefazolin Sodium 2 GM Q8H 10/19 1600 10/20 N/A 1 UNIT IV 2345 Ferrous Sulfate 325 MG BID 10/19 0900 AC 10/20 PO 0820 Furosemide 20 MG 10/19 0900 AC 10/19 PO 0839 Levothyroxine Sodium 0.125 MG DAILY AC 10/19 07 AC 10/21 PO 0551 Magnesium Oxide 400 MG DAILY 10/19 899 AC 10/19 PO 0839 Metoprolol Tartrate 50 MG BID 10/19 899 AC 10/21 PO 0618 Potassium Chloride 20 MEQ 10/19 AC 10/19 PO 0839 Warfarin Sodium 2.5 MG COUMADIN 1700 ONE 10/20 1700 DC 10/20 PO 10/20 [id number] Last 24 Hrs of Lab/Sorin Results Last 24 Hrs of Labs/Mics: Laboratory Tests 10/21/17 0606: PT Pending, INR Pending, CBC w Diff NO MAN DIFF REQ, RBC 4.51, MCV 90.4, MCH 29.3, MCHC 32.4 L, RDW 16.8 H, MPV 10.8 H, Gran % 58.8, Lymphocytes % 25.1, Monocytes % 13.3 H, Eosinophils % 2.0, Basophils % 0.8, Absolute Granulocytes 3.9, Absolute Lymphocytes 1.7, Absolute Monocytes 0.9 H, Absolute Eosinophils 0.1, Absolute Basophils 0.1 Assessment/Plan Assessment: Patient is a 77-year-old female, legally blind, with past medical history of A. fib on Coumadin, hypertension, hyperlipidemia, hypothyroidism, thrombocytopenia, chronic lymphedema of legs, stage II CKD, history of shingles, necrotizing fasciitis, pulmonary hypertension, diastolic CHF, macular degeneration, recently discharged from [place] on 10/12/2017 after being treated for MSSA bacteremia presents to the ED with increasing pain and redness to her right lower leg that started about 7 days ago. Assessment and plan 1. Right lower extremity cellulitis 2. Bilateral chronic lymphedema 3. MSSA bacteremia on cefazolin * Patient is on cefazolin and will continue the same. Erythema has not passed marker yet and in fact is retreating from it. Infectious disease recommendations appreciated, recommending to continue cefazolin at this time. Patient stable for discharge today and will have services at home for the cefazolin. * Advised leg elevation and warm compression * Continue home medication metoprolol 50 twice a day, magnesium 400 daily, levothyroxine 0.125 g, Lasix 20 Sunday and Sunday, * Check INR and dose Coumadin * Code-full code * Diet-consistent carbohydrate 1 * DVT prophylaxis-patient is on warfarin Problem List: 1. Cellulitis of right leg Pain Ratin Pain Location: no Pain Goal: Remain pain free Pain Plan: see a/p Tomorrow's Labs & Rationales: no
--- NOTE | 2017-10-21 08:05 | Patient Discharge Instructions ---
Discharge Instructions General Discharge Information You were seen/treated for: Cellulitis Watch for these problems: Fever, chest pain, shortness of breath Special Instructions: Please take all medications as directed. Please follow-up with primary care. Diet Continue normal diet: Yes Activity Full Activity/No Limits: Yes Acute Coronary Syndrome Inclusion Criteria At DC or during hospital stay patient has or had the following: ACS DIAGNOSIS No Discharge Core Measures Meds if any: Prescribed or Continued at Discharge Meds if any: NOT Prescribed or Continued at Discharge Congestive Heart Failure Inclusion Criteria At DC or during hospital stay patient has or had the following: CHF DIAGNOSIS No Discharge Core Measures Meds if any: Prescribed or Continued at Discharge Meds if any: NOT Prescribed or Continued at Discharge Cerebrovascular accident Inclusion Criteria At DC or during hospital stay patient has or had the following: CVA/TIA Diagnosis No Discharge Core Measures Meds if any: Prescribed or Continued at Discharge Meds if any: NOT Prescribed or Continued at Discharge Venous thromboembolism Inclusion Criteria VTE Diagnosis No VTE Type NONE VTE Confirmed by (Test) NONE Discharge Core Measures - Per Current guidelines, there needs to be overlap - treatment for the first 5 days of Warfarin therapy. - If discharged on Warfarin prior to 5 days of - overlap therapy, the patient will need to be - assessed for post discharge needs including - *Post discharge parental anticoagulation - *Warfarin and/or parental anticoagulation education - *Follow up date to check INR post discharge At least 5 days overlap therapy as Inpatient No Meds if any: Prescribed or Continued at Discharge Note: Overlap Therapy is Warfarin and Anticoagulant Meds if any: NOT Prescribed or Continued at Discharge
[2017-10-21] MEDS ORDERED: PROAIR HFA8.5 GM INH (12:20)
--- NOTE | 2017-11-09 13:48 | Discharge Summary ---
Visit Information Visit Dates Admission Date: 10/18/17 Discharge Date: 10/21/17 Hospital Course Course Attending Physician: Jason Krishnan MD Primary Care Physician: Jason Krishnan MD Hospital Course: This is a 77-year-old lady with history of morbid obesity, chronic lymphedema of the legs and abd wall, hypothyroidism, atrial fibrillation on anticoagulation with warfarin, chronic venous insufficiency, previous history of vein closure, previous history of significant necrotizing fasciitis septic shock with TSS, morbid obesity, secondary pulmonary hypertension, previous postoperative respiratory failure, hyperlipidemia, pre- clinical diabetes, with previous acute renal insufficiency, chronic diastolic chf, recent dc from the hospital due to MSSA sepsis prob due to soft tissue infection now on 6 weeks of abx, did not get OXANA due to being a poor candidate for it, on iv abx at home with picc line with cefazolin came in with * Sig cellulitis vs hematoma of the rt leg in a pt with chronic lympedema, which started after she had local trauma. No sig leukocytosis etc resolved * ON active rx for MSSA sepsis due to prob soft tissue infection of the left foot (pt was not a good candidate for OXANA) currently on week 2 of 6 weeks of antibiotics with cefazolin * REcent left Foot ulcer on the sole of the lt foot Bone scan neg with improvement * Atrial fibrillation chronic on anticoag on warfarin/now INR to goal * Recent Type 2 KS with chf, now appears euvolemic, pt has remote history of NonSTMI * Hypothyroidism on appropriate supplementation * Chronic diastolic heart disease with recent chf now not in chf * Morbid obesity, with sig lymphedema and recurrent cellulitis Allergies: Coded Allergies: Gadolinium-Containing Contrast Medi (CONTRAST DYE - UNKNOWN 10/18/17) Iodinated Contrast- Oral and IV Dye (CONTRAST DYE - UNKNOWN 10/18/17) Penicillins (RASH 10/18/17) Uncoded Allergies: CONTRAST DYE (UNKNOWN 10/02/17) Disposition Summary Disposition Principal Diagnosis: Cellulitis leg Additional Diagnosis: Lymphedema leg MSSA bacteremia Foot ulcer Afib Hypothyroid Chronic diastolic heart disease Morbid obesity Discharge Disposition: home health services Discharge Instructions General Discharge Information Code Status: Full Code Patient's Diet: low fat diabetic diet Patient's Activity: as jared Follow-Up Instructions/Appts: with me and id Medications at Discharge Discharge Medications: Continue taking these medications: Warfarin Sodium (Coumadin) 2.5 MG TABLET 1 Tablet ORAL DAILY Comments: Last Taken: 10/20/17 Time: 20:47 Levothyroxine Sodium (Synthroid) 125 MCG TABLET 0.125 Milligram ORAL DAILY BEFORE BREAKFAST Qty = 30 Instructions: . Comments: Last Taken: 10/21/17 Time:05:51 AM Ferrous Sulfate (Ferrous Sulfate) 325 MG (65 MG IRON) TABLET 1 Tablet ORAL TWICE DAILY Comments: Last Taken:10/20/17 Time:08:20 Furosemide (Furosemide) 20 MG TABLET 1 Tablet ORAL SUNDAY, SUNDAY AND SUNDAY Qty = 30 Instructions: . Comments: Last Taken: 10/19/17 Time: 08:39 am Potassium Chloride (Klor-Con M20) 20 MEQ TAB.ER.PRT 1 Tablet ORAL SUNDAY, SUNDAY AND SUNDAY Qty = 30 Instructions: . Comments: Last Taken: 10/19/17 @ 8:39 AM Metoprolol Tartrate (Lopressor) 100 MG TABLET 1 Tablet ORAL TWICE DAILY Qty = 30 Instructions: . Comments: Last Taken: 10/21/17 Time: 06:18 AM Cefazolin Sodium in 0.9 % NaCl (Cefazolin 2 G/10 Ml-Ns Syringe) 2 GRAM/10 ML SYRINGE 2 Gram INTRAVEN EVERY 8 HOURS Qty = 30 Instructions: For total 6 weeks antibiotic course till November 14 through PICC line.. Comments: Last Taken: 10/21/17 Time: 08:15 am Magnesium Oxide (Magnesium Oxide) 400 MG TABLET 1 Tablet ORAL DAILY Comments: Last Taken:10/19/17 Time:08:39 AM Start taking the following new medications: Albuterol Sulfate (Proair Hfa) 90 MCG HFA.AER.AD 2 Puff Inhale through mouth EVERY 4-6 HOURS NEEDED as needed for SHORTNESS OF BREATH Qty = 1 No Refills Copies To: Eulogio CHAMBERS,Jason Welsh
== END 2017-10-21 14:15 | disposition home health service (06) | DRG 602 ==
LOC: ERH 11:15 → ERHI 20:09 → 2NB 20:09 → CANRESERV 20:32 → ENRESERV 20:32 → EDBEDREQ 21:24 → ENRESERV 22:08 → ENTRNSPT 22:12 → EDTRNSPT 22:18 → EDTRNSPTSTS 22:18 → 2NB 22:26 → CMPTRNSPT 22:40 → ENTRNSPT 10-21 14:08 → 2NB 10-21 14:15 → EDTRNSPT 10-21 14:15 → EDTRNSPTSTS 10-21 14:15 → CMPTRNSPT 10-21 14:16
PROVIDERS: Internal Medicine; Physician Assistant; Physician Assistant Medical; Student in an Organized Health Care Education/Training Program
DX: L03.115 Cellulitis of right lower limb (principal); I21.A1 Myocardial infarction type 2; R78.81 Bacteremia; I27.20 Pulmonary hypertension, unspecified; I13.0 Hypertensive heart and chronic kidney disease with heart failure and stage 1 through stage 4 chronic kidney disease, or unspecified chronic kidney disease; E66.01 Morbid (severe) obesity due to excess calories; I50.32 Chronic diastolic (congestive) heart failure; B95.61 Methicillin susceptible Staphylococcus aureus infection as the cause of diseases classified elsewhere; Z68.43 Body mass index [BMI] 50.0-59.9, adult; I48.91 Unspecified atrial fibrillation; Z79.01 Long term (current) use of anticoagulants; I89.0 Lymphedema, not elsewhere classified; I87.2 Venous insufficiency (chronic) (peripheral); N18.2 Chronic kidney disease, stage 2 (mild); E03.9 Hypothyroidism, unspecified; Z88.0 Allergy status to penicillin; Z91.041 Radiographic dye allergy status; H54.8 Legal blindness, as defined in USA; E78.5 Hyperlipidemia, unspecified; B95.62 Methicillin resistant Staphylococcus aureus infection as the cause of diseases classified elsewhere; W22.8XXA Striking against or struck by other objects, initial encounter; Y92.238 Other place in hospital as the place of occurrence of the external cause
CPT/HCPCS: 36592; 71045; 82436; 87040; 93005; 93010; 96374; J0690; J7508